=== PATIENT | male | born 1970 | race Caucasian/White ===

== ENCOUNTER → 2022-10-07 11:24 | Outpatient (BNVA) | payer OTHER, MEDICAID, SELFPAY | PROVIDERS: PCP Physician Assistant Medical; Visit Provider Psychiatry & Neurology Neurology | DX: G25.81 Restless legs syndrome (principal); G47.62 Sleep related leg cramps; G47.33 Obstructive sleep apnea (adult) (pediatric); I10 Essential (primary) hypertension; G20 Parkinson's disease ==

== ENCOUNTER 2023-02-08 10:32 | Outpatient (AMB) | payer OTHER, SELFPAY ==
--- NOTE | 2023-02-08 10:34 | MHC.OFFVIS ---
Intake Vital Signs 02/08/23 10:41 Weight 204 lb BP 122/88 Blood Pressure Location Lt brachial Position Sitting Pulse 84 Pulse Source Pulse Oximeter Pulse Oximetry (%) 98 Oxygen Delivery Method Room Air Intake Visit Reasons: 4m f/u Parkinsons-lvm Intake Note: F/U for Parkinsons Oracle Consultant Required: No Allergies No Known Allergies Allergy (Verified 02/08/23 10:35) Medication List - Last Reconciled 02/08/23 by Kusum Mercer MD alpha lipoic acid 250 mg PO DAILY atropine 1% 1 drp PO Q4-6H PRN brimonidine 0.2% 1 drp ophthalmic (eye) Q8H carbidopa-levodopa 25-100 mg 2 tabs PO TID carvedilol 12.5 mg PO BID cholecalciferol (vitamin D3) 25 mcg PO DAILY dapagliflozin propanediol (Farxiga) 10 mg PO DAILY insulin lispro (Humalog KwikPen (U-100) Insulin) subcut mecobalamin (vitamin B12) (B12 Active) 1,000 mcg PO DAILY pen needle, diabetic (BD Maite 2nd Gen Pen Needle) As directed pen needle, diabetic (BD Ultra-Fine Short Pen Needle) As directed pyridoxine (vitamin B6) 100 mg PO DAILY ropinirole ER 6 mg PO QAM rosuvastatin 10 mg PO DAILY trihexyphenidyl 2 mg PO BID zinc gluconate 50 mg PO DAILY HPI HPI Comments History of Present Illness Details 52y/o male with parkinsons comes for further management. He was diagnosed with parkinsonism in 2018 and is on sinemet.He feels he is slower MICHEL was c/w carli decreased activity in Basal ganglia No change since last visit. He has a new mask for his CPAP - feels it is not helping him He stopped insulin and self monitoring his diabetes. He also has systemic sarcoidosis- managed by ( nephrology). He denies a memory issues. He denies REM behavior disorder, vivid dreams, depression or anxiety. SPeech- is softer. He has night time drooling. He has right hand rest tremors, slow movements in all his extremities He has difficulty writing using utensils, showering , dressing etc. Gait is slow. no falls He denies constipation, dizziness, double vision ( lost vision in his left eye due to glaucoma) He reports burning tingling numbness in his feet at night when he is trying to sleep. when he walks its better. [facility] Medical History Carpal tunnel syndrome of right wrist Diabetes Glaucoma HTN (hypertension) Hyperlipidemia Hypersomnia Obstructive sleep apnea Katie's disease Sarcoidosis Family History Mother Diabetes mellitus Father Heart failure Social History Alcohol intake: current Patient Tobacco Use Status: Never used Tobacco Use of substances other than those prescribed or required for medical reasons: No Physical Exam Vital Signs: Last Vital Signs Pulse 84 02/08/23 10:41 BP 122/88 02/08/23 10:41 Pulse Ox 98 02/08/23 10:41 Oxygen Delivery Method Room Air 02/08/23 10:41 Const General: cooperative, healthy appearing and no acute distress Nutritional Appearance: overweight Orientation/consciousness: patient oriented x3 HEENT Head: Yes normal to inspection Neck Other: mild antecollis and restricted range of motion Neuro Other: Moderate decreased blink and facial expression slow tongue movements Voice- normal Right UE rest tremors Fine Finger movements - mild decreased carli R>L Alternating hand movements - normal Hand movements - normal Foot taps- normal No cog wheel rigidity gait - good stride, mild slowness, decreased arm swings r>L General: patient oriented x3 and no focal motor deficits Cranial nerves: Yes CN's II-XII intact bilaterally, Yes Bilaterally intact EOM present, Yes Normal facial strength present and Yes Midline tongue present Motor exam (neuro): 5/5 motor strength present throughout and Normal motor muscle tone present throughout Coordination: [id number] test normal Assessment & Plan Assessment & Plan (1) Parkinson's disease: Code(s): G20 - Parkinson's disease (2) Restless legs syndrome (RLS): Code(s): G25.81 - Restless legs syndrome (3) Leg cramps, sleep related: Code(s): G47.62 - Sleep related leg cramps (4) Obstructive sleep apnea: Code(s): G47.33 - Obstructive sleep apnea (adult) (pediatric) Plan Discussed about glucose control- Refer to endocrinology Rheumotology referral for sarcoidosis Requip XR 6mg qam continue sinemet 25/100 2 tabs tid trihexyphenidyl 2mg bid MICHEL scan results discussed Continue CPAP Orders: Referrals Rheumatology Referral D86.9 - Sarcoidosis, unspecified Endocrinology Referral E11.9 - Type 2 diabetes mellitus without complications Coding Level of Care Code Est Pt Level 5 (21804) Diagnoses Parkinson's disease G20 Restless legs syndrome (RLS) G25.81 Leg cramps, sleep related G47.62 Obstructive sleep apnea G47.33
[2023-02-08 10:41] VITALS: BP 122/88; PULSE 84; O2SAT 98
== END 2023-02-08 10:58 | disposition home or self-care (01) ==
PROVIDERS: Visit Provider Psychiatry & Neurology Neurology
DX: G20 Parkinson's disease (principal); G25.81 Restless legs syndrome; G47.62 Sleep related leg cramps; G47.33 Obstructive sleep apnea (adult) (pediatric)
CPT/HCPCS: 99214

== ENCOUNTER → 2023-02-08 10:32 | Outpatient (BNVA) | payer OTHER, MEDICAID, SELFPAY | PROVIDERS: Visit Provider Psychiatry & Neurology Neurology | DX: G25.81 Restless legs syndrome (principal); G47.62 Sleep related leg cramps; G47.33 Obstructive sleep apnea (adult) (pediatric); I10 Essential (primary) hypertension; G20 Parkinson's disease ==

== ENCOUNTER 2023-05-06 08:34 | Outpatient (AMB) | payer OTHER, SELFPAY ==
[2023-05-06 08:37] VITALS: BP 124/88; PULSE 90; TEMP 36.2; O2SAT 96; BMI 30.7
--- NOTE | 2023-05-06 08:37 | A.OFFVIS_ITS ---
Intake Vital Signs 05/06/23 08:37 Height 5 ft 8 in Weight 201 lb 11.567 oz BMI 30.7 BP 124/88 Blood Pressure Location Rt brachial Position Sitting Pulse 90 Pulse Source Pulse Oximeter Temp 97.2 F Pulse Oximetry (%) 96 Intake Visit Reasons: Sarcoidosis Intake Note: New pt referred by neurology for sarcoidosis consult. Salt Washer Required: No Accompanied by: Self / Same As Patient Allergies No Known Allergies Allergy (Verified 05/06/23 08:39) Medication List - Last Reconciled 05/06/23 by Byron Cleaning MD alpha lipoic acid 250 mg PO DAILY atropine 1% 1 drp PO Q4-6H PRN brimonidine 0.2% 1 drp ophthalmic (eye) Q8H carbidopa-levodopa 25-100 mg 2 tabs PO TID carvedilol 12.5 mg PO BID cholecalciferol (vitamin D3) 25 mcg PO DAILY dapagliflozin propanediol (Farxiga) 10 mg PO DAILY insulin lispro (Humalog KwikPen (U-100) Insulin) subcut mecobalamin (vitamin B12) (B12 Active) 1,000 mcg PO DAILY pen needle, diabetic (BD Maite 2nd Gen Pen Needle) As directed pen needle, diabetic (BD Ultra-Fine Short Pen Needle) As directed pyridoxine (vitamin B6) 100 mg PO DAILY ropinirole ER 6 mg PO QAM 90 days rosuvastatin 10 mg PO DAILY trihexyphenidyl 2 mg PO BID zinc gluconate 50 mg PO DAILY HPI HPI Comments History of Present Illness Details This is a 52-year-old male with Parkinson's was referred by Neurology for evaluation of sarcoidosis. Patient is not a good historian. He states that in 2018 he was admitted to the hospital for hypercalcemia and had a biopsy, he believes it was a liver biopsy and it confirmed sarcoidosis. He states that he was managed by recycling tech , he was on prednisone for 6 months to 1 year. He does not recall any other treatment for sarcoidosis. Has not been on any sarcoidosis treatment in the last few years. He follows up with Dr. callejas every 6 months. Today patient has no major complaints. [facility], [facility] Medical History Hypersomnia Glaucoma Carpal tunnel syndrome of right wrist Obstructive sleep apnea Katie's disease Diabetes Hyperlipidemia HTN (hypertension) Sarcoidosis Surgical History No history of previous surgery Family History Mother Diabetes mellitus Father Heart failure Social History Alcohol intake: current Alcohol intake frequency: holidays/special occasions only Patient Tobacco Use Status: Never used Tobacco Current occupational status: employed Current occupation: Dealership Review of Systems Const Reports headache(s) Eyes Details: redness Reports eye pain ENT Reports dizziness and Reports headache(s) Card Reports dyspnea Resp Reports dyspnea Musc Reports arthralgias Skin/Breast Reports rash Neuro Reports dizziness and Reports headache(s) Psych Reports abnormal sleep pattern Physical Exam Vital Signs: Last Vital Signs Temp 97.2 F 05/06/23 08:37 Pulse 90 05/06/23 08:37 BP 124/88 05/06/23 08:37 Pulse Ox 96 05/06/23 08:37 BMI result Body Mass Index 30.7 Const General: cooperative, healthy appearing and comfortable Nutritional Appearance: overweight Orientation/consciousness: patient oriented x3 Limitations: no limitations HEENT Head: Yes normocephalic and Yes atraumatic Mouth: moist mucous membranes Resp Effort & Inspection: normal respiratory effort and able to speak in complete sentences Cardio Rate: regular rate GI Inspection: No distended Palpation (GI): Soft to palpation and nontender Neuro General: patient oriented x3 Extrem Other: No active synovitis Normal nailfold capillaroscopy Assessment & Plan Assessment & Plan (1) Sarcoidosis: Code(s): D86.9 - Sarcoidosis, unspecified Plan: This is a 52-year-old male with parkinsonism who is referred by Neurology for evaluation of sarcoidosis. Patient is not a good historian. She stated that he was admitted to [facility] in 2018 with hyperglycemia and a biopsy was done which showed sarcoidosis. He was on prednisone for 6 months to 1 year. Managed by recycling tech Dr. callejas. Currently his sarcoidosis is managed by Dr. callejas. The only labs that are available to me in the chart are labs from 06/2022 which showed a normal calcium. Will request records from patient's PCP and recycling tech. Accordingly will assess the need to order any additional workup. Tentative follow-up in 2 months Plan I spent 30 minutes reviewing patient's chart, evaluating patient, counseling patient and documenting in the chart Coding Level of Care Code New Pt Level 3 (13735) Diagnoses Sarcoidosis D86.9
== END 2023-05-06 09:16 | disposition home or self-care (01) ==
PROVIDERS: PCP Physician Assistant Medical; Visit Provider Student in an Organized Health Care Education/Training Program
DX: D86.9 Sarcoidosis, unspecified (principal)
CPT/HCPCS: 99203

== ENCOUNTER → 2023-05-06 08:34 | Outpatient (BNVA) | payer OTHER, MEDICAID, SELFPAY | PROVIDERS: PCP Physician Assistant Medical; Visit Provider Student in an Organized Health Care Education/Training Program ==

== ENCOUNTER 2023-06-15 09:06 | Outpatient (AMB) | payer OTHER, MEDICAID, SELFPAY ==
--- NOTE | 2023-06-15 09:08 | MHC.OFFVIS ---
Intake Vital Signs 06/15/23 09:09 Height 5 ft 8 in Weight 208 lb 2 oz BMI 31.6 BP 126/70 Blood Pressure Location Rt brachial Position Sitting Respiration 16 Pulse 85 Pulse Source Pulse Oximeter Pulse Oximetry (%) 99 Oxygen Delivery Method Room Air Intake Visit Reasons: f/u Parkinson's - Confirmed Intake Note: Pt presents to the office for a 4 month follow up for Parkinson's. Agriculture Scientist Required: No Allergies No Known Allergies Allergy (Verified 06/15/23 09:08) Medication List - Last Reconciled 06/15/23 by Kusum Mercer MD alpha lipoic acid 250 mg PO DAILY atropine 1% 1 drp PO Q4-6H PRN brimonidine 0.2% 1 drp ophthalmic (eye) Q8H carbidopa-levodopa 25-100 mg 2 tabs PO TID carvedilol 12.5 mg PO BID cholecalciferol (vitamin D3) 25 mcg PO DAILY dapagliflozin propanediol (Farxiga) 10 mg PO DAILY insulin lispro (Humalog KwikPen (U-100) Insulin) subcut mecobalamin (vitamin B12) (B12 Active) 1,000 mcg PO DAILY pen needle, diabetic (BD Maite 2nd Gen Pen Needle) As directed pen needle, diabetic (BD Ultra-Fine Short Pen Needle) As directed pyridoxine (vitamin B6) 100 mg PO DAILY ropinirole ER 6 mg PO QAM 90 days rosuvastatin 10 mg PO DAILY trihexyphenidyl 2 mg PO BID zinc gluconate 50 mg PO DAILY HPI HPI Comments History of Present Illness Details 52y/o male with parkinsons comes for further management. He was diagnosed with parkinsonism in 2018 and is on sinemet.He feels he is slower and also the medication wears off early. when the med wear off he has trouble walking and has stiffness and pain. MICHEL was c/w carli decreased activity in Basal ganglia He has a new mask for his CPAP - feels it is not helping him He is back on insulin and is seeing with PCP. He crump snot know if his diabetes is controlled He was also seen by Dr. Cleaning for sarcoidosis He denies a memory issues. He denies REM behavior disorder, vivid dreams, depression or anxiety. SPeech- is softer. He has night time drooling. He has right hand rest tremors, slow movements in all his extremities He has difficulty writing using utensils, showering , dressing etc. Gait is slow. no falls He denies constipation, dizziness, double vision ( lost vision in his left eye due to glaucoma) He reports burning tingling numbness in his feet at night when he is trying to sleep. when he walks its better. [facility] Medical History Hypersomnia Glaucoma Carpal tunnel syndrome of right wrist Obstructive sleep apnea Aktie's disease Diabetes Hyperlipidemia HTN (hypertension) Sarcoidosis Surgical History No history of previous surgery Family History Mother Diabetes mellitus Father Heart failure Social History Alcohol intake: current Alcohol intake frequency: holidays/special occasions only Patient Tobacco Use Status: Never used Tobacco Current occupational status: employed Current occupation: Dealership Physical Exam Vital Signs: Last Vital Signs Pulse 85 06/15/23 09:09 Resp 16 06/15/23 09:09 BP 126/70 06/15/23 09:09 Pulse Ox 99 06/15/23 09:09 Oxygen Delivery Method Room Air 06/15/23 09:09 BMI result Body Mass Index 31.6 Const General: cooperative, healthy appearing and no acute distress Nutritional Appearance: overweight Orientation/consciousness: patient oriented x3 HEENT Head: Yes normal to inspection Neck Other: mild antecollis and restricted range of motion Neuro Other: Moderate decreased blink and facial expression slow tongue movements Voice- normal Right UE rest tremors Fine Finger movements - mild decreased carli R>L Alternating hand movements - normal Hand movements - normal Foot taps- normal No cog wheel rigidity gait - good stride, mild slowness, decreased arm swings r>L General: patient oriented x3 and no focal motor deficits Cranial nerves: Yes CN's II-XII intact bilaterally, Yes Bilaterally intact EOM present, Yes Normal facial strength present and Yes Midline tongue present Motor exam (neuro): 5/5 motor strength present throughout and Normal motor muscle tone present throughout Coordination: [id number] test normal Assessment & Plan Assessment & Plan (1) Parkinson's disease: Code(s): G20 - Parkinson's disease (2) Restless legs syndrome (RLS): Code(s): G25.81 - Restless legs syndrome (3) Leg cramps, sleep related: Code(s): G47.62 - Sleep related leg cramps (4) Obstructive sleep apnea: Code(s): G47.33 - Obstructive sleep apnea (adult) (pediatric) Plan Discussed about glucose control- Refer to endocrinology Requip XR 6mg qam change sinemet 25/100 1.5tabs qid trihexyphenidyl 2mg bid MICHEL scan results discussed Continue CPAP Medications: New gabapentin 600 mg PO BEDTIME 30 tabs 4RF Changed From carbidopa-levodopa 25-100 mg 2 tabs PO TID 180 tabs 6RF To carbidopa-levodopa 25-100 mg 1.5 tabs PO QID 180 tabs 6RF Coding Level of Care Code Est Pt Level 4 (46516) Diagnoses Parkinson's disease G20 Restless legs syndrome (RLS) G25.81 Leg cramps, sleep related G47.62 Obstructive sleep apnea G47.33
[2023-06-15 09:09] VITALS: BP 126/70; PULSE 85; RESP 16; O2SAT 99; BMI 31.6
== END 2023-06-15 09:34 | disposition home or self-care (01) ==
PROVIDERS: PCP Physician Assistant Medical; Visit Provider Psychiatry & Neurology Neurology
DX: G20.A1 Parkinson's disease without dyskinesia, without mention of fluctuations (principal); G25.81 Restless legs syndrome; G47.62 Sleep related leg cramps; G47.33 Obstructive sleep apnea (adult) (pediatric)
CPT/HCPCS: 99214

== ENCOUNTER → 2023-06-15 09:06 | Outpatient (BNVA) | payer OTHER, MEDICAID, SELFPAY | PROVIDERS: PCP Physician Assistant Medical; Visit Provider Psychiatry & Neurology Neurology | DX: G25.81 Restless legs syndrome (principal); G47.62 Sleep related leg cramps; G47.33 Obstructive sleep apnea (adult) (pediatric); I10 Essential (primary) hypertension; D86.9 Sarcoidosis, unspecified; E11.9 Type 2 diabetes mellitus without complications ==

== ENCOUNTER 2023-07-07 09:15 | Outpatient (AMB) | payer OTHER, MEDICAID, SELFPAY ==
--- NOTE | 2023-07-07 09:20 | MHC.OFFVIS ---
Intake Vital Signs 07/07/23 09:21 Height 5 ft 8 in BP 126/84 Blood Pressure Location Rt brachial Position Sitting Pulse 92 Pulse Source Pulse Oximeter Temp 96.7 F L Temp Source Skin Pulse Oximetry (%) 99 Oxygen Delivery Method Room Air Intake Visit Reasons: Sarcoidosis Intake Note: Pt last seen 05/06/23 presents today for follow up. I faxed signed med release to PCP, courtesy car driver and [facility] for discharge summary on 06/29 but never received records. Pharmacist Critical Care Required: No Accompanied by: Self / Same As Patient Allergies No Known Allergies Allergy (Verified 07/07/23 09:23) Medication List - Last Reconciled 07/07/23 by Byron Cleaning MD alpha lipoic acid 250 mg PO DAILY atropine 1% 1 drp PO Q4-6H PRN brimonidine 0.2% 1 drp ophthalmic (eye) Q8H carbidopa-levodopa 25-100 mg 1.5 tabs PO QID carvedilol 12.5 mg PO BID cholecalciferol (vitamin D3) 25 mcg PO DAILY dapagliflozin propanediol (Farxiga) 10 mg PO DAILY gabapentin 600 mg PO BEDTIME insulin lispro (Humalog KwikPen (U-100) Insulin) subcut mecobalamin (vitamin B12) (B12 Active) 1,000 mcg PO DAILY pen needle, diabetic (BD Maite 2nd Gen Pen Needle) As directed pen needle, diabetic (BD Ultra-Fine Short Pen Needle) As directed pyridoxine (vitamin B6) 100 mg PO DAILY ropinirole ER 6 mg PO QAM 90 days rosuvastatin 10 mg PO DAILY trihexyphenidyl 2 mg PO BID zinc gluconate 50 mg PO DAILY HPI HPI Comments History of Present Illness Details 52-year-old male with sarcoidosis returns for follow-up. Patient signed a records please request form, we requested records from his courtesy car driver. We were unable to receive records. Patient states that he feels about the same overall. He gets tingling and numbness of his right foot, especially at night. Initial history: This is a 52-year-old male with Parkinson's was referred by Neurology for evaluation of sarcoidosis. Patient is not a good historian. He states that in 2018 he was admitted to the hospital for hypercalcemia and had a biopsy, he believes it was a liver biopsy and it confirmed sarcoidosis. He states that he was managed by courtesy car driver , he was on prednisone for 6 months to 1 year. He does not recall any other treatment for sarcoidosis. Has not been on any sarcoidosis treatment in the last few years. He follows up with Dr. callejas every 6 months. Today patient has no major complaints. [facility] Medical History Parkinson's disease without dyskinesia or fluctuating manifestations Hypersomnia Glaucoma Carpal tunnel syndrome of right wrist Obstructive sleep apnea Katie's disease Diabetes Hyperlipidemia HTN (hypertension) Sarcoidosis Surgical History No history of previous surgery Family History Mother Diabetes mellitus Father Heart failure Social History Alcohol intake: current Alcohol intake frequency: holidays/special occasions only Patient Tobacco Use Status: Never used Tobacco Current occupational status: employed Current occupation: Dealership Review of Systems Musc Reports tingling Neuro Reports tingling and Reports paresthesias Physical Exam Vital Signs: Last Vital Signs Temp 96.7 F L 07/07/23 09:21 Pulse 92 07/07/23 09:21 BP 126/84 07/07/23 09:21 Pulse Ox 99 07/07/23 09:21 Oxygen Delivery Method Room Air 07/07/23 09:21 Const General: cooperative, healthy appearing and comfortable Nutritional Appearance: overweight Orientation/consciousness: patient oriented x3 Limitations: no limitations HEENT Head: Yes normocephalic and Yes atraumatic Resp Effort & Inspection: normal respiratory effort and able to speak in complete sentences Neuro General: patient oriented x3 Extrem Other: No active synovitis Normal nailfold capillaroscopy Assessment & Plan Assessment & Plan (1) Sarcoidosis: Code(s): D86.9 - Sarcoidosis, unspecified Plan: This is a 52-year-old male with parkinsonism who is referred by Neurology for evaluation of sarcoidosis. Patient is not a good historian. She stated that he was admitted to [facility] in 2018 with hypercalcemia and a liver biopsy was done which showed sarcoidosis. He was on prednisone for 6 months to 1 year. Managed by courtesy car driver Dr. callejas. Currently his sarcoidosis is managed by Dr. callejas. The only labs that are available to me in the chart are labs from 06/2022 which showed a normal calcium. We requested records from patient's courtesy car driver as well as DC summary from his hospitalization. We were unable to retrieve those records. I will order sarcoidosis workup to evaluate the need for treatment Follow-up in 3 weeks Plan I spent 15 minutes reviewing patient's chart, evaluating patient, ordering diagnostic workup, counseling patient and documenting in the chart Orders: Orders Complete Blood Count Auto Diff Today D86.9 - Sarcoidosis, unspecified Comprehensive Met. Panel Today D86.9 - Sarcoidosis, unspecified Immunofixation Pnl, Serum Today D86.9 - Sarcoidosis, unspecified Protein Electrophoresis, Serum Today D86.9 - Sarcoidosis, unspecified Angiotensin Converting Enzyme Today D86.9 - Sarcoidosis, unspecified C Reactive Protein Today D86.9 - Sarcoidosis, unspecified Erythrocyte Sedimentation Rate Today D86.9 - Sarcoidosis, unspecified Lysozyme, Serum Today D86.9 - Sarcoidosis, unspecified Vitamin D 1,25 dihydroxy Today D86.9 - Sarcoidosis, unspecified Vitamin D 25-OH (D2 and D3) Today D86.9 - Sarcoidosis, unspecified Coding Level of Care Code Est Pt Level 3 (99891) Diagnoses Sarcoidosis D86.9
[2023-07-07 09:21] VITALS: BP 126/84; PULSE 92; TEMP 35.9; O2SAT 99
== END 2023-07-07 09:46 | disposition home or self-care (01) ==
PROVIDERS: PCP Physician Assistant Medical; Visit Provider Student in an Organized Health Care Education/Training Program
DX: D86.9 Sarcoidosis, unspecified (principal)
CPT/HCPCS: 99213

== ENCOUNTER → 2023-07-07 09:15 | Outpatient (BNVA) | payer OTHER, MEDICAID, SELFPAY | PROVIDERS: PCP Physician Assistant Medical; Visit Provider Student in an Organized Health Care Education/Training Program ==

== ENCOUNTER 2023-07-07 09:51 | Outpatient (REF) | payer OTHER, MEDICAID, SELFPAY ==
[2023-07-11 15:37] LABS: Lysozyme, Serum 19.4 mcg/mL (5.0-11.0)
[2023-07-12 11:09] LABS: Prot Elec - Albumin 4.3 g/dL (3.8-4.8); Prot Elec - Alpha1 0.3 g/dL (0.2-0.3); Prot Elec - Alpha2 0.7 g/dL (0.5-0.9); Prot Elec - Beta 1 0.5 g/dL (0.4-0.6); Prot Elec - Beta 2 0.5 g/dL (0.2-0.5); Prot Elec - Gamma 0.9 g/dL (0.8-1.7); Prot Elec - Total Protein 7.1 g/dL (6.1-8.1)
[2023-07-13 12:44] LABS: VITAMIN D (1,25 OH) D3 49 pg/mL; Vit D (1,25-Dihydroxy) Total 49 pg/mL (18-72); Vitamin D (1,25 OH) D2 <8 pg/mL; Vitamin D 25-OH, D2 <4 ng/mL; Vitamin D 25-OH, D3 21 ng/mL; Vitamin D 25-OH, Total 21 ng/mL (30-100)
[2023-07-13 14:44] LABS: IgA 271 mg/dL (47-310); IgG 973 mg/dL (600-1640); IgM 88 mg/dL (50-300)
[2023-07-14 14:39] LABS: Angiotensin Converting Enzyme 47.7 U/L (9-67)
== END 2023-07-07 09:52 | disposition home or self-care (01) ==
LOC: HO.10HDL 09:51
PROVIDERS: Visit Provider Student in an Organized Health Care Education/Training Program
DX: D86.9 Sarcoidosis, unspecified (principal)
CPT/HCPCS: 36415; 80053; 82164; 82306; 82652; 82784; 84165; 85025; 85549; 85652; 86140; 86334

== ENCOUNTER 2023-07-28 15:34 | Outpatient (AMB) | payer OTHER, MEDICAID, SELFPAY ==
[2023-07-28 15:38] VITALS: BP 142/80; PULSE 104; O2SAT 97; BMI 31.7
--- NOTE | 2023-07-28 15:38 | A.OFFVIS_ITS ---
Intake Vital Signs 07/28/23 15:38 Height 5 ft 8 in Weight 208 lb 8.917 oz BMI 31.7 BP 142/80 H Blood Pressure Location Rt brachial Position Sitting Pulse 104 H Pulse Source Pulse Oximeter Pulse Oximetry (%) 97 Oxygen Delivery Method Room Air Intake Visit Reasons: Sarcoidosis Intake Note: Patient last seen 07/07/23 presents today for follow up and test results. Court Monitor Required: No Accompanied by: Self / Same As Patient Allergies No Known Allergies Allergy (Verified 07/28/23 15:40) Medication List - Last Reconciled 07/28/23 by Byron Cleaning MD alpha lipoic acid 250 mg PO DAILY atropine 1% 1 drp PO Q4-6H PRN brimonidine 0.2% 1 drp ophthalmic (eye) Q8H carbidopa-levodopa 25-100 mg 1.5 tabs PO QID carvedilol 12.5 mg PO BID cholecalciferol (vitamin D3) 25 mcg PO DAILY dapagliflozin propanediol (Farxiga) 10 mg PO DAILY gabapentin 600 mg PO BEDTIME insulin lispro (Humalog KwikPen (U-100) Insulin) subcut mecobalamin (vitamin B12) (B12 Active) 1,000 mcg PO DAILY pen needle, diabetic (BD Maite 2nd Gen Pen Needle) As directed pen needle, diabetic (BD Ultra-Fine Short Pen Needle) As directed pyridoxine (vitamin B6) 100 mg PO DAILY ropinirole ER 6 mg PO QAM 90 days rosuvastatin 10 mg PO DAILY trihexyphenidyl 2 mg PO BID zinc gluconate 50 mg PO DAILY HPI HPI Comments History of Present Illness Details 52-year-old male with sarcoidosis return s for follow-up. Patient states that he is doing about the same overall. He has pain in the right side. He mentioned that he had an open lung biopsy in 2018 and in 2020 his right lung collapse and he had multiple drains in his right lung. Stated that 1 of the drains broke when they were moving him from bed to bed. Since then he has been having pain in his right side. He also states that he has been having froth in bubbles in his urine for the last 2 months. I advised patient to follow-up with his coordinator of online programs and seek evaluation by a razor grinder. Initial history: This is a 52-year-old male with Parkinson's was referred by Neurology for evaluation of sarcoidosis. Patient is not a good historian. He states that in 2018 he was admitted to the hospital for hypercalcemia and had a biopsy, he believes it was a liver biopsy and it confirmed sarcoidosis. He states that he was managed by coordinator of online programs , he was on prednisone for 6 months to 1 year. He does not recall any other treatment for sarcoidosis. Has not been on any sarcoidosis treatment in the last few years. He follows up with Dr. fenton every 6 months. Today patient has no major complaints. [facility] Medical History (Updated 07/28/23 @ 16:17 by Byron Cleaning MD) Uveitic glaucoma Parkinson's disease without dyskinesia or fluctuating manifestations Hypersomnia Carpal tunnel syndrome of right wrist Obstructive sleep apnea Katie's disease Diabetes Hyperlipidemia HTN (hypertension) Sarcoidosis Surgical History (Updated 07/28/23 @ 16:14 by Byron Cleaning MD) No history of previous surgery Family History Mother Diabetes mellitus Father Heart failure Social History Alcohol intake: current Alcohol intake frequency: holidays/special occasions only Patient Tobacco Use Status: Never used Tobacco Current occupational status: employed Current occupation: Dealership Review of Systems Resp Details: Right-sided pain Details: Bubbles in urine Physical Exam Vital Signs: Last Vital Signs Pulse 104 H 07/28/23 15:38 BP 142/80 H 07/28/23 15:38 Pulse Ox 97 07/28/23 15:38 Oxygen Delivery Method Room Air 07/28/23 15:38 BMI result Body Mass Index 31.7 Const General: cooperative, healthy appearing and comfortable Nutritional Appearance: overweight Orientation/consciousness: patient oriented x3 Limitations: no limitations HEENT Head: Yes normocephalic and Yes atraumatic Chest Other: Could not elicit any chest wall tenderness Resp Effort & Inspection: normal respiratory effort and able to speak in complete sentences Auscultation: clear to auscultation bilaterally GI Inspection: No distended Palpation (GI): Soft to palpation and nontender Skin General skin exam: no rashes or lesions noted Neuro General: patient oriented x3 Extrem Other: No active synovitis Normal nailfold capillaroscopy Assessment & Plan Assessment & Plan (1) Sarcoidosis: Code(s): D86.9 - Sarcoidosis, unspecified Plan: This is a 52-year-old male with parkinsonism who is referred by Neurology for evaluation of sarcoidosis. Patient is not a good historian. He stated that he was admitted to [facility] in 2018 with hypercalcemia and a liver biopsy was done which showed sarcoidosis. He was on prednisone for 6 months to 1 year. Managed by coordinator of online programs Dr. fenton. He also mentioned that he had a lung biopsy in 2018 which showed sarcoidosis. Patient was treated with prednisone by his coordinator of online programs Dr. Fenton more 6 months to 1 year. He has not been on steroids for some time. His serum calcium is normal. Jake level is normal. I do not see any features of active sarcoidosis on exam today. 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 He was on Humira at some point. Used to follow-up with mortgage banker Dr. Cliff Epperson. Will request records from Dr. Epperson's office Labs before next visit in 6 months (2) Right-sided chest wall pain: Code(s): R07.89 - Other chest pain Plan: Patient mentioned that in 2020 he was hospitalized and had right-sided multiple chest tubes. One of the tubes broke when they were moving it. States that he continues to have the same pain. Consider pulmonology consultation (3) Frothy urine: Code(s): R82.998 - Other abnormal findings in urine Plan: Follow-up with coordinator of online programs or PCP Plan I spent 25 minutes reviewing patient's chart, evaluating patient, ordering diagnostic workup, counseling patient and documenting in the chart Orders: Orders Complete Blood Count Auto Diff 6 Months D86.9 - Sarcoidosis, unspecified Erythrocyte Sedimentation Rate 6 Months D86.9 - Sarcoidosis, unspecified T Spot TB 6 Months Z11.7 - Encounter for testing for latent tuberculosis infection Protein Electrophoresis, Serum 6 Months D86.9 - Sarcoidosis, unspecified Angiotensin Converting Enzyme 6 Months D86.9 - Sarcoidosis, unspecified Cyclic Citrullinated Peptide 6 Months M06.9 - Rheumatoid arthritis, unspecified HLA B27 6 Months M45.9 - Ankylosing spondylitis of unspecified sites in spine Comprehensive Met. Panel 6 Months D86.9 - Sarcoidosis, unspecified C Reactive Protein 6 Months D86.9 - Sarcoidosis, unspecified Hepatitis A,B,C Profile 6 Months Z11.59 - Encounter for screening for other viral diseases Immunofixation Pnl, Serum 6 Months D86.9 - Sarcoidosis, unspecified Lysozyme, Serum 6 Months D86.9 - Sarcoidosis, unspecified Rheumatoid Factor 6 Months M06.9 - Rheumatoid arthritis, unspecified MAGALY Reflex Titer and Pattern 6 Months D86.9 - Sarcoidosis, unspecified Coding Level of Care Code Est Pt Level 4 (82817) Diagnoses Sarcoidosis D86.9 Right-sided chest wall pain R07.89 Frothy urine R82.998
== END 2023-07-28 16:06 | disposition home or self-care (01) ==
LOC: HO.RHE 15:34
PROVIDERS: PCP Physician Assistant Medical; Visit Provider Student in an Organized Health Care Education/Training Program
DX: D86.9 Sarcoidosis, unspecified (principal); R07.89 Other chest pain; R82.998 Other abnormal findings in urine
CPT/HCPCS: 99214

== ENCOUNTER → 2023-07-28 15:34 | Outpatient (BNVA) | payer OTHER, MEDICAID, SELFPAY | PROVIDERS: PCP Physician Assistant Medical; Visit Provider Student in an Organized Health Care Education/Training Program ==

== ENCOUNTER 2023-10-14 08:29 | Outpatient (AMB) | payer OTHER, MEDICAID, SELFPAY ==
--- NOTE | 2023-10-14 08:47 | A.OFFVIS_ITS ---
Intake Vital Signs 10/14/23 08:48 Height 5 ft 8 in Weight 208 lb BMI 31.6 BP 110/76 Blood Pressure Location Rt brachial Position Sitting Respiration 16 Pulse 76 Pulse Source Palpation Intake Visit Reasons: 2 mo f/u - Parkinsons-CONF Intake Note: Pt presents for a 2 month follow up for Parkinson's. Wildlife Officer Required: No Allergies No Known Allergies Allergy (Verified 10/14/23 08:47) HPI HPI Comments History of Present Illness Details 52y/o male with parkinsons comes for low up.He reports that the medication wears off quickly , has trouble walking. He was diagnosed with parkinsonism in 2018 and is on sinemet.He feels he is slower and also the medication wears off early. when the med wear off he has trouble walking and has stiffness and pain. MICHEL was c/w carli decreased activity in Basal ganglia He has a new mask for his CPAP - feels it is not helping him His Hg A1c is 8.5 1 month ago as per patient. He was also seen by Dr. Cleaning for sarcoidosis He denies a memory issues. He denies REM behavior disorder, vivid dreams, depression or anxiety. SPeech- is softer. He has night time drooling. He has right hand rest tremors, slow movements in all his extremities He has difficulty writing using utensils, showering , dressing etc. Gait is slow. no falls He denies constipation, dizziness, double vision ( lost vision in his left eye due to glaucoma) He reports burning tingling numbness in his feet at night when he is trying to sleep. when he walks its better. [facility] Medical History Uveitic glaucoma Parkinson's disease without dyskinesia or fluctuating manifestations Hypersomnia Carpal tunnel syndrome of right wrist Obstructive sleep apnea Katie's disease Diabetes Hyperlipidemia HTN (hypertension) Sarcoidosis Surgical History No history of previous surgery Family History Mother Diabetes mellitus Father Heart failure Social History Alcohol intake: current Alcohol intake frequency: holidays/special occasions only Patient Tobacco Use Status: Never used Tobacco Current occupational status: employed Current occupation: Dealership Physical Exam Vital Signs: Last Vital Signs Pulse 76 10/14/23 08:48 Resp 16 10/14/23 08:48 BP 110/76 10/14/23 08:48 BMI result Body Mass Index 31.6 Const General: cooperative, healthy appearing and no acute distress Nutritional Appearance: overweight Orientation/consciousness: patient oriented x3 HEENT Head: Yes normal to inspection Neck Other: mild antecollis and restricted range of motion Neuro Other: Moderate decreased blink and facial expression slow tongue movements Voice- normal Right UE rest tremors Fine Finger movements - mild decreased carli R>L Alternating hand movements - normal Hand movements - normal Foot taps- normal No cog wheel rigidity gait - good stride, mild slowness, decreased arm swings r>L General: patient oriented x3 and no focal motor deficits Cranial nerves: Yes CN's II-XII intact bilaterally, Yes Bilaterally intact EOM present, Yes Normal facial strength present and Yes Midline tongue present Motor exam (neuro): 5/5 motor strength present throughout and Normal motor muscle tone present throughout Coordination: [id number] test normal Assessment & Plan Assessment & Plan (1) Parkinson's disease: Code(s): G20 - Parkinson's disease (2) Restless legs syndrome (RLS): Code(s): G25.81 - Restless legs syndrome (3) Leg cramps, sleep related: Code(s): G47.62 - Sleep related leg cramps (4) Obstructive sleep apnea: Code(s): G47.33 - Obstructive sleep apnea (adult) (pediatric) Plan Requip XR 6mg qam sinemet 25/100 1.5tabs qid , patient is taking 2 tabs tid - suggested to change to 1.5 tabs qid to improve early wearing off. trihexyphenidyl 2mg bid MICHEL scan results discussed Continue CPAP F/u rheumatology and nephrology Coding Level of Care Code Est Pt Level 4 (71181) Diagnoses Parkinson's disease G20 Restless legs syndrome (RLS) G25.81 Leg cramps, sleep related G47.62 Obstructive sleep apnea G47.33
[2023-10-14 08:48] VITALS: BP 110/76; PULSE 76; RESP 16; BMI 31.6
== END 2023-10-14 09:16 | disposition home or self-care (01) ==
PROVIDERS: PCP Physician Assistant Medical; Visit Provider Psychiatry & Neurology Neurology
DX: G20.A1 Parkinson's disease without dyskinesia, without mention of fluctuations (principal); G25.81 Restless legs syndrome; G47.62 Sleep related leg cramps; G47.33 Obstructive sleep apnea (adult) (pediatric)
CPT/HCPCS: 99214

== ENCOUNTER → 2023-10-14 08:29 | Outpatient (BNVA) | payer OTHER, MEDICAID, SELFPAY | PROVIDERS: PCP Physician Assistant Medical; Visit Provider Psychiatry & Neurology Neurology ==

== ENCOUNTER 2024-01-18 15:40 | Outpatient (REF) | payer OTHER, MEDICAID, SELFPAY ==
[2024-01-18 16:24] LABS: MANUAL DIFF FLAG NO
[2024-01-18 17:32] LABS: Basophils Percent Auto 1.8 % (0-2); Eosinophils Percent Auto 6.3 % (0-4); Hematocrit 43.7 % (42.0-52.0); Hemoglobin 14.9 g/dl (14.0-18.0); Imm Gran Abs Auto 0.05 X10*3/uL (0.00-0.03); Imm Gran Pct Auto 0.5 % (0.0-0.4); Lymphocytes Absolute Auto 1.3 X10*3/uL (1.2-4.9); Mean Corpuscular HGB Conc 34.1 g/dl (31.0-36.0); Mean Corpuscular Hemoglobin 28.5 pg (27.0-33.0); Mean Corpuscular Volume 83.6 fL (80.0-98.0); Mean Platelet Volume 9.6 fL (9.4-12.4); Monocytes Percent Auto 6.2 % (2-11); Neutrophils Absolute Auto 6.8 x10*3/uL (2.0-8.3); Neutrophils Percent Auto 71.2 % (45-73); Platelet Count 204 X10*3/uL (160-400); Red Blood Count 5.23 X10*6/uL (4.60-5.80); Red Cell Distribution Width 13.1 % (11.0-16.0); White Blood Count 9.5 X10*3/uL (4.8-10.8)
[2024-01-18 17:33] LABS: Basophils Absolute Auto 0.2 X10*3/uL (0.0-0.2); Eosinophils Absolute Auto 0.6 X10*3/uL (0.0-0.4); Monocytes Absolute Auto 0.6 X10*3/uL (0.1-1.2)
[2024-01-18 18:16] LABS: Alanine Aminotransferase < 5 U/L (0-40); Albumin Level 4.3 g/dL (3.5-5.0); Alkaline Phosphatase 100 U/L (39-117); Anion Gap 16 (12-20); Aspartate Amino Transferase 15 U/L (5-37); Bilirubin Total 0.7 mg/dL (0.0-1.0); Blood Urea Nitrogen 36 mg/dL (9-16); C Reactive Protein 0.27 mg/dL (< or = 0.50); Carbon Dioxide 19 mmol/L (22-29); Chloride 105 mmol/L (96-108); Estimated Glomerular Filt Rate 33; Glucose Random 222 mg/dL (60-115); Sodium 135 mmol/L (135-145); Total Protein 7.3 g/dL (6.5-8.0)
[2024-01-18 18:19] LABS: Rheumatoid Factor < 13.0 IU/mL (<15.0)
[2024-01-18 18:33] LABS: Erythrocyte Sedimentation Rate 10 MM/HR (0-15)
[2024-01-19 04:33] LABS: HBS Num1 0.13 mIU/mL (0-7.99); HBc Num1 0.26 S/CO (0.00-0.79); HBsAGNum1 0.29 S/CO (0.00-0.99); Hepatitis A Antibody IgM 0.13 Index (0-0.79); Hepatitis B Core Antibody Nonreactive (Nonreactive); Hepatitis B Surface Antigen Negative (Negative); ~HepC Num1 0.06 S/CO (0.00-0.79); ~Hepatitis A Antibody IgM Nonreactive (Nonreactive); ~Hepatitis B Surface Antibody NONREACTIVE (Nonreactive); ~Hepatitis C Antibody Nonreactive (Nonreactive)
[2024-01-19 22:28] LABS: Prot Elec - Albumin 4.2 g/dL (3.8-4.8); Prot Elec - Alpha1 0.3 g/dL (0.2-0.3); Prot Elec - Alpha2 0.6 g/dL (0.5-0.9); Prot Elec - Beta 1 0.4 g/dL (0.4-0.6); Prot Elec - Beta 2 0.5 g/dL (0.2-0.5); Prot Elec - Gamma 0.8 g/dL (0.8-1.7); Prot Elec - Total Protein 6.8 g/dL (6.1-8.1)
[2024-01-20 14:54] LABS: IgA 280 mg/dL (47-310); IgG 977 mg/dL (600-1640); IgM 83 mg/dL (50-300)
[2024-01-23 02:59] LABS: Angiotensin Converting Enzyme 36.7 U/L (9-67)
[2024-01-23 21:44] LABS: Lysozyme, Serum 17.1 mcg/mL (5.0-11.0)
[2024-01-24 09:13] LABS: Cyclic Citrullinated Peptide <16 UNITS
[2024-01-24 09:34] LABS: HLA B27 Positive (Negative)
[2024-01-26 11:02] LABS: Anti Nuclear Antibody Screen NEGATIVE (NEGATIVE)
== END 2024-01-18 15:41 | disposition home or self-care (01) ==
LOC: HO.LAB 15:40
PROVIDERS: PCP Physician Assistant Medical; Visit Provider Student in an Organized Health Care Education/Training Program
DX: D86.9 Sarcoidosis, unspecified (principal); M45.9 Ankylosing spondylitis of unspecified sites in spine; Z11.59 Encounter for screening for other viral diseases; M06.9 Rheumatoid arthritis, unspecified
CPT/HCPCS: 36415; 80053; 82164; 82784; 84165; 85025; 85549; 85652; 86038; 86140; 86200; 86334; 86431; 86480; 86481; 86704; 86706; 86709; 86803; 86812; 87340

== ENCOUNTER 2024-01-25 12:31 | Outpatient (AMB) | payer OTHER, MEDICAID, SELFPAY ==
--- NOTE | 2024-01-25 12:32 | MHC.OFFVIS ---
Vital Signs 01/25/24 12:33 Height 5 ft 8 in Weight 212 lb 4.882 oz BMI 32.3 BP 122/80 Blood Pressure Location Lt brachial Position Sitting Pulse 82 Pulse Source Pulse Oximeter Pulse Oximetry (%) 98 Oxygen Delivery Method Room Air Intake Visit Reasons: Sarcoidosis Intake Note: Patient last seen on 07/28/23 present today for follow up and test results. Allergies No Known Allergies Allergy (Verified 01/25/24 12:36) Medication List - Last Reconciled 01/25/24 by Byron Cleaning MD alpha lipoic acid 250 mg PO DAILY amlodipine 2.5 mg PO DAILY atropine 1% 1 drp PO Q4-6H PRN brimonidine 0.2% 1 drp ophthalmic (eye) Q8H carbidopa-levodopa 25-100 mg 1.5 tabs PO QID carvedilol 12.5 mg PO BID cholecalciferol (vitamin D3) 25 mcg PO DAILY dapagliflozin propanediol (Farxiga) 10 mg PO DAILY gabapentin 600 mg PO BEDTIME insulin lispro (Humalog KwikPen (U-100) Insulin) subcut mecobalamin (vitamin B12) (B12 Active) 1,000 mcg PO DAILY pen needle, diabetic (BD Maite 2nd Gen Pen Needle) As directed pen needle, diabetic (BD Ultra-Fine Short Pen Needle) As directed pyridoxine (vitamin B6) 100 mg PO DAILY ropinirole ER 6 mg PO QAM 90 days rosuvastatin 10 mg PO DAILY spironolactone 12.5 mg PO DAILY trihexyphenidyl 2 mg PO BID zinc gluconate 50 mg PO DAILY HPI Comments Details: 52-year-old male with history of sarcoidosis and reactive arthritis returns for follow-up. Patient states that he is doing about the same overall. States that he feels generalized slowness, generalized stiffness, generalized achiness. he denies any swollen joints. Initial history: This is a 52-year-old male with Parkinson's was referred by Neurology for evaluation of sarcoidosis. Patient is not a good historian. He states that in 2018 he was admitted to the hospital for hypercalcemia and had a biopsy, he believes it was a liver biopsy and it confirmed sarcoidosis. He states that he was managed by volleyball assistant coach , he was on prednisone for 6 months to 1 year. He does not recall any other treatment for sarcoidosis. Has not been on any sarcoidosis treatment in the last few years. He follows up with Dr. fenton every 6 months. Today patient has no major complaints. [facility] Medical History Uveitic glaucoma Parkinson's disease without dyskinesia or fluctuating manifestations Hypersomnia Carpal tunnel syndrome of right wrist Obstructive sleep apnea Katie's disease Diabetes Hyperlipidemia HTN (hypertension) Sarcoidosis Surgical History No history of previous surgery Family History Mother Diabetes mellitus Father Heart failure Social History Alcohol intake: current Alcohol intake frequency: holidays/special occasions only Patient Tobacco Use Status: Never used Tobacco Current occupational status: employed Current occupation: Dealership Review of Systems Const Reports body aches, Reports fatigue and Reports weakness Musc Reports myalgias, Denies joint swelling and Reports stiffness Neuro Reports weakness Endo Reports fatigue Physical Exam Vital Signs: Last Vital Signs Pulse 82 01/25/24 12:33 BP 122/80 01/25/24 12:33 Pulse Ox 98 01/25/24 12:33 Oxygen Delivery Method Room Air 01/25/24 12:33 BMI result Body Mass Index 32.3 Const General: cooperative, healthy appearing and comfortable Nutritional Appearance: overweight Orientation/consciousness: patient oriented x3 Limitations: no limitations HEENT Head: Yes normocephalic and Yes atraumatic Resp Effort & Inspection: normal respiratory effort and able to speak in complete sentences Auscultation: clear to auscultation bilaterally GI Inspection: No distended Palpation (GI): Soft to palpation and nontender Skin General skin exam: no rashes or lesions noted Neuro General: patient oriented x3 Extrem Other: No active synovitis Normal nailfold capillaroscopy Assessment & Plan Assessment & Plan (1) Sarcoidosis: Comment: +HLA b27 Code(s): D86.9 - Sarcoidosis, unspecified Category: Medical Plan: This is a 53-year-old male with parkinsonism who is referred by Neurology for evaluation of sarcoidosis. Patient is not a good historian. He stated that he was admitted to [facility] in 2018 with hypercalcemia and a liver biopsy was done which showed sarcoidosis. He was on prednisone for 6 months to 1 year. Managed by volleyball assistant coach Dr. fenton. He also mentioned that he had a lung biopsy in 2018 which showed sarcoidosis. Patient was treated with prednisone by his volleyball assistant coach Dr. Fenton more 6 months to 1 year. He has not been on steroids for some time. 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 He was on Humira at some point. Used to follow-up with assistant operator Dr. Cliff Epperson. He also has history of uveitic glaucoma On exam today I do not see any signs suggestive of an autoimmune rheumatic disease. Is no active synovitis, inflammatory markers are normal, there is no hypercalcemia, RONI level is normal Patient to follow-up with his dry plasterer helper and volleyball assistant coach Follow-up in 1 year Plan I spent 25 minutes reviewing patient's chart, evaluating patient, ordering diagnostic workup, counseling patient and documenting in the chart Orders: Orders Complete Blood Count Auto Diff 1 Year D86.9 - Sarcoidosis, unspecified Comprehensive Met. Panel 1 Year D86.9 - Sarcoidosis, unspecified C Reactive Protein 1 Year D86.9 - Sarcoidosis, unspecified Erythrocyte Sedimentation Rate 1 Year D86.9 - Sarcoidosis, unspecified Angiotensin Converting Enzyme 1 Year D86.9 - Sarcoidosis, unspecified Coding Level of Care Code Est Pt Level 4 (35177) Diagnoses Sarcoidosis D86.9
[2024-01-25 12:33] VITALS: BP 122/80; PULSE 82; O2SAT 98; BMI 32.3
== END 2024-01-25 13:04 | disposition home or self-care (01) ==
PROVIDERS: PCP Physician Assistant Medical; Visit Provider Student in an Organized Health Care Education/Training Program
DX: D86.9 Sarcoidosis, unspecified (principal)
CPT/HCPCS: 99214

== ENCOUNTER → 2024-01-25 12:31 | Outpatient (BNVA) | payer OTHER, MEDICAID, SELFPAY | PROVIDERS: PCP Physician Assistant Medical; Visit Provider Student in an Organized Health Care Education/Training Program ==

== ENCOUNTER 2024-03-09 09:15 | Outpatient (AMB) | payer OTHER, MEDICAID, SELFPAY ==
--- NOTE | 2024-03-09 09:29 | A.OFFVIS_ITS ---
Vital Signs 03/09/24 09:30 Height 5 ft 8 in Weight 212 lb BMI 32.2 BP 138/72 Blood Pressure Location Rt brachial Position Sitting Respiration 16 Pulse 84 Pulse Source Palpation Intake Visit Reasons: 6 month F/U Intake Note: Pt presents to the office for a 4 month follow up for leg cramps and CRISTINA. Pt admits he has not been using his CPAP Bottom Hoop Driver Required: No Allergies No Known Allergies Allergy (Verified 03/09/24 09:29) Medication List - Last Reconciled 03/09/24 by Kusum Mercer MD alpha lipoic acid 250 mg PO DAILY amlodipine 2.5 mg PO DAILY atropine 1% 1 drp PO Q4-6H PRN brimonidine 0.2% 1 drp ophthalmic (eye) Q8H carbidopa-levodopa 25-100 mg 2 tabs PO QID carvedilol 12.5 mg PO BID cholecalciferol (vitamin D3) 25 mcg PO DAILY dapagliflozin propanediol (Farxiga) 10 mg PO DAILY gabapentin 600 mg PO BEDTIME insulin lispro (Humalog KwikPen (U-100) Insulin) subcut mecobalamin (vitamin B12) (B12 Active) 1,000 mcg PO DAILY pen needle, diabetic (BD Maite 2nd Gen Pen Needle) As directed pen needle, diabetic (BD Ultra-Fine Short Pen Needle) As directed pyridoxine (vitamin B6) 100 mg PO DAILY ropinirole ER 6 mg PO QAM 90 days rosuvastatin 10 mg PO DAILY spironolactone 12.5 mg PO DAILY trihexyphenidyl 2 mg PO BID zinc gluconate 50 mg PO DAILY HPI Comments Details: 53y/o male with parkinsons comes for follow up. His diabetes is poorly controlled He feels fatigued and has trouble walking He was diagnosed with parkinsonism in 2018 and is on sinemet.He feels he is slower and also the medication wears off early. when the med wear off he has trouble walking and has stiffness and pain. MICHEL was c/w carli decreased activity in Basal ganglia He has a new mask for his CPAP - feels it is not helping him- he reports leg symptoms - numbness and jerking movements at night His Hg A1c is 9 month ago as per patient. He denies a memory issues. He denies REM behavior disorder, vivid dreams, depression or anxiety. SPeech- is softer. He has night time drooling. He has right hand rest tremors, slow movements in all his extremities He has difficulty writing using utensils, showering , dressing etc. Gait is slow. no falls He denies constipation, dizziness, double vision ( lost vision in his left eye due to glaucoma) He reports burning tingling numbness in his feet at night when he is trying to sleep. when he walks its better. [facility] Medical History (Updated 03/09/24 @ 09:51 by Kusum Mercer MD) Obstructive sleep apnea hypopnea, moderate Parkinson's disease without dyskinesia, without mention of fluctuations Uveitic glaucoma Parkinson's disease without dyskinesia or fluctuating manifestations Hypersomnia Carpal tunnel syndrome of right wrist Obstructive sleep apnea Katie's disease Diabetes Hyperlipidemia HTN (hypertension) Sarcoidosis Surgical History No history of previous surgery Family History Mother Diabetes mellitus Father Heart failure Social History Alcohol intake: current Alcohol intake frequency: holidays/special occasions only Patient Tobacco Use Status: Never used Tobacco Current occupational status: employed Current occupation: Dealership Physical Exam Vital Signs: Last Vital Signs Pulse 84 03/09/24 09:30 Resp 16 03/09/24 09:30 BP 138/72 03/09/24 09:30 BMI result Body Mass Index 32.2 Const General: cooperative, healthy appearing and no acute distress Nutritional Appearance: overweight Orientation/consciousness: patient oriented x3 HEENT Head: Yes normal to inspection Neck Other: mild antecollis and restricted range of motion Neuro Other: Moderate decreased blink and facial expression slow tongue movements Voice- normal Right UE rest tremors Fine Finger movements - mild decreased carli R>L Alternating hand movements - normal Hand movements - normal Foot taps- normal No cog wheel rigidity gait - good stride, mild slowness, decreased arm swings r>L General: patient oriented x3 and no focal motor deficits Cranial nerves: Yes CN's II-XII intact bilaterally, Yes Bilaterally intact EOM present, Yes Normal facial strength present and Yes Midline tongue present Motor exam (neuro): 5/5 motor strength present throughout and Normal motor muscle tone present throughout Coordination: [id number] test normal Assessment & Plan Assessment & Plan (1) Parkinson's disease without dyskinesia, without mention of fluctuations: Code(s): G20.A1 - Parkinson's disease without dyskinesia, without mention of fluctuations Category: Medical (2) Restless legs syndrome (RLS): Code(s): G25.81 - Restless legs syndrome Category: Medical (3) Leg cramps, sleep related: Code(s): G47.62 - Sleep related leg cramps Category: Medical (4) Obstructive sleep apnea: Code(s): G47.33 - Obstructive sleep apnea (adult) (pediatric) Category: Medical Plan Requip XR 6mg qam Increase sinemet 25/100 2tabs qid trihexyphenidyl 2mg bid MICHEL scan results discussed Continue CPAP - will refer to [facility] for mandibular device F/u rheumatology and nephrology Orders: Referrals Dentistry Referral G47.33 - Obstructive sleep apnea (adult) (pediatric) Medications: Changed From carbidopa-levodopa 25-100 mg 1.5 tabs PO QID 180 tabs 6RF To carbidopa-levodopa 25-100 mg 2 tabs PO QID 240 tabs 6RF Coding Level of Care Code Est Pt Level 4 (57916) Complex EM visit Add On G2211 Diagnoses Parkinson's disease without dyskinesia, without mention of fluctuations G20.A1 Restless legs syndrome (RLS) G25.81 Leg cramps, sleep related G47.62 Obstructive sleep apnea G47.33
[2024-03-09 09:30] VITALS: BP 138/72; PULSE 84; RESP 16; BMI 32.2
== END 2024-03-09 10:02 | disposition home or self-care (01) ==
PROVIDERS: PCP Physician Assistant Medical; Visit Provider Psychiatry & Neurology Neurology
DX: G20.A1 Parkinson's disease without dyskinesia, without mention of fluctuations (principal); G25.81 Restless legs syndrome; G47.62 Sleep related leg cramps; G47.33 Obstructive sleep apnea (adult) (pediatric)
CPT/HCPCS: 99214; G2211

== ENCOUNTER → 2024-03-09 09:15 | Outpatient (BNVA) | payer OTHER, MEDICAID, SELFPAY | PROVIDERS: PCP Physician Assistant Medical; Visit Provider Psychiatry & Neurology Neurology ==

== ENCOUNTER 2024-09-24 10:53 | Outpatient (AMB) | payer OTHER, SELFPAY ==
[2024-09-24 10:59] VITALS: BP 126/78; PULSE 77; O2SAT 99; BMI 32.4
--- NOTE | 2024-09-24 10:59 | A.OFFVIS_ITS ---
Vital Signs 09/24/24 10:59 Height 5 ft 8 in Weight 213 lb BMI 32.4 BP 126/78 Blood Pressure Location Rt brachial Position Sitting Pulse 77 Pulse Source Pulse Oximeter Pulse Oximetry (%) 99 Oxygen Delivery Method Room Air Intake Visit Reasons: 6mo F/U Intake Note: patient following up carbidopa levodopa increase Allergies No Known Allergies Allergy (Verified 09/24/24 11:02) Medication List - Last Reconciled 09/24/24 by Kusum Mercer MD alpha lipoic acid 250 mg PO DAILY amlodipine 2.5 mg PO DAILY atropine 1% 1 drp PO Q4-6H PRN brimonidine 0.2% 1 drp ophthalmic (eye) Q8H carbidopa-levodopa 25-100 mg 2 tabs PO QID carvedilol 12.5 mg PO BID cholecalciferol (vitamin D3) 25 mcg PO DAILY dapagliflozin propanediol (Farxiga) 10 mg PO DAILY insulin lispro (Humalog KwikPen (U-100) Insulin) subcut mecobalamin (vitamin B12) (B12 Active) 1,000 mcg PO DAILY pen needle, diabetic (BD Maite 2nd Gen Pen Needle) As directed pen needle, diabetic (BD Ultra-Fine Short Pen Needle) As directed pyridoxine (vitamin B6) 100 mg PO DAILY ropinirole ER 6 mg PO QAM rosuvastatin 10 mg PO DAILY spironolactone 12.5 mg PO DAILY trihexyphenidyl 2 mg PO BID zinc gluconate 50 mg PO DAILY HPI Comments Details: 53y/o male with parkinsons comes for follow up. He was diagnosed with parkinsonism in 2018 and is on sinemet.He feels he is slower and also the medication wears off early. when the med wear off he has trouble walking and has stiffness and pain. MICHEL was c/w carli decreased activity in Basal ganglia He denies a memory issues. He denies REM behavior disorder, vivid dreams, depression or anxiety. SPeech- is softer. He has night time drooling. He has right hand rest tremors, slow movements in all his extremities He has difficulty writing using utensils, showering , dressing etc. Gait is slow. no falls He denies constipation, dizziness, double vision ( lost vision in his left eye due to glaucoma) He reports burning tingling numbness in his feet at night when he is trying to sleep. when he walks its better. [facility] Medical History Obstructive sleep apnea hypopnea, moderate Parkinson's disease without dyskinesia, without mention of fluctuations Uveitic glaucoma Parkinson's disease without dyskinesia or fluctuating manifestations Hypersomnia Carpal tunnel syndrome of right wrist Obstructive sleep apnea Katie's disease Diabetes Hyperlipidemia HTN (hypertension) Sarcoidosis Surgical History No history of previous surgery Family History Mother Diabetes mellitus Father Heart failure Social History Alcohol intake: current Alcohol intake frequency: holidays/special occasions only Patient Tobacco Use Status: Never used Tobacco Current occupational status: employed Current occupation: Dealership Physical Exam Vital Signs: Last Vital Signs Pulse 77 09/24/24 10:59 BP 126/78 09/24/24 10:59 Pulse Ox 99 09/24/24 10:59 Oxygen Delivery Method Room Air 09/24/24 10:59 BMI result Body Mass Index 32.4 Const General: cooperative, healthy appearing and no acute distress Nutritional Appearance: overweight Orientation/consciousness: patient oriented x3 HEENT Head: Yes normal to inspection Neck Other: mild antecollis and restricted range of motion Neuro Other: Moderate decreased blink and facial expression slow tongue movements Voice- normal Right UE rest tremors Fine Finger movements - mild decreased carli R>L Alternating hand movements - normal Hand movements - normal Foot taps- normal No cog wheel rigidity gait - good stride, mild slowness, decreased arm swings r>L General: patient oriented x3 and no focal motor deficits Cranial nerves: Yes CN's II-XII intact bilaterally, Yes Bilaterally intact EOM present, Yes Normal facial strength present and Yes Midline tongue present Motor exam (neuro): 5/5 motor strength present throughout and Normal motor muscle tone present throughout Coordination: [id number] test normal Assessment & Plan Assessment & Plan (1) Parkinson's disease without dyskinesia, without mention of fluctuations: Code(s): G20.A1 - Parkinson's disease without dyskinesia, without mention of fluctuations Category: Medical Qualifiers: Fluctuating manifestations: with fluctuating manifestations Qualified Code(s): G20.A2 - Parkinson's disease without dyskinesia, with fluctuations (2) Restless legs syndrome (RLS): Code(s): G25.81 - Restless legs syndrome Category: Medical (3) Leg cramps, sleep related: Code(s): G47.62 - Sleep related leg cramps Category: Medical (4) Obstructive sleep apnea: Code(s): G47.33 - Obstructive sleep apnea (adult) (pediatric) Category: Medical Plan Requip XR 6mg qam sinemet 25/100 2tabs qid - does not want to increase medications yet trihexyphenidyl 2mg bid MICHEL scan results discussed Continue CPAP - will refer to [facility] for mandibular device F/u [facility] rheumatology and nephrology Medications: Discontinued gabapentin Discontinued Reason: Patient no longer taking 600 mg PO BEDTIME 30 tabs 4RF Coding Level of Care Code Est Pt Level 4 (13338) Complex EM visit Add On G2211 Diagnoses Parkinson's disease without dyskinesia, with fluctuating manifestations G20.A2 Fluctuating manifestations: with fluctuating manifestations Restless legs syndrome (RLS) G25.81 Leg cramps, sleep related G47.62 Obstructive sleep apnea G47.33
== END 2024-09-24 11:34 | disposition home or self-care (01) ==
PROVIDERS: PCP Physician Assistant Medical; Visit Provider Psychiatry & Neurology Neurology
DX: G20.A2 Parkinson's disease without dyskinesia, with fluctuations (principal); G25.81 Restless legs syndrome; G47.62 Sleep related leg cramps; G47.33 Obstructive sleep apnea (adult) (pediatric)
CPT/HCPCS: 99214; G2211

== ENCOUNTER → 2024-09-24 10:53 | Outpatient (BNVA) | payer MEDICAID, SELFPAY | PROVIDERS: PCP Physician Assistant Medical; Visit Provider Psychiatry & Neurology Neurology | DX: G20.A2 Parkinson's disease without dyskinesia, with fluctuations (principal); G25.81 Restless legs syndrome; G47.62 Sleep related leg cramps; G47.33 Obstructive sleep apnea (adult) (pediatric) | CPT/HCPCS: 99212 ==

== ENCOUNTER 2025-02-07 11:20 | Outpatient (AMB) | payer MEDICAID, SELFPAY ==
--- NOTE | 2025-02-07 11:29 | MHC.OFFVIS ---
Vital Signs 02/07/25 11:30 Height 5 ft 8 in Weight 209 lb 2 oz BMI 31.8 BP 122/72 Blood Pressure Location Rt brachial Position Sitting Pulse 80 Pulse Source Pulse Oximeter Pulse Oximetry (%) 98 Oxygen Delivery Method Room Air Intake Visit Reasons: Discharge FU, foot numbness/twitch Intake Note: Patient presents [facility] F/u foot numbness/tingling. ED notes in chart. Patient states severe stiffness/swelling/pain. WHen goes to bed goes to feet. Accompanied by: Sister Allergies No Known Allergies Allergy (Verified 02/07/25 11:33) HPI Comments Details: 54y/o male with Parkinsons disorder and CRISTINA presents for follow up visit. Jasmina his sister helps with history today. PMH: In 2018 he was dx with Parkinsons and is on Sinemet. MICHEL was c/w carli decreased activity in Basal ganglia. Medication: Sinemet cd/ld 2- 7a, 2-noon,2-5pm, 2-10pm. patient understand to take this medication without protein products and he may take a cookie or a cracker with the meds. He says the medicine is wearing off, and has more than 2-3 hours of off time daily. He also adjuncts with Trihexylphenidyl 2mg po BID gives him more energy but wears off pretty quickly. He feels fatigued and is slower as the med wears off he has trouble walking. He says his feet get stiff at night and he has excruciating, burning pain in the toes flicker ,He takes alpha lipoic acid 250mg and ropinirole 2mg po daily. Sleep is fragmented, has difficulty staying asleep, turning over in bed, and his legs feel heavy. He naps through out the day. He has RLS symptoms with paresthesias, burning, tingling he gets up to stretch them at night, and sleeps in his chair. He has bilateral tremors start on r. lower extremity and moves to l. lower extremity. His hands feel rigid, r>L with tremors and paresthesias. He has difficulty writing, using utensils, feeding himself, cutting his food, drinking soup, showering, and dressing. Fine motor coordination is worse and needs help with all his ADLS. He has right hand rest tremors, and this keeps him up at night, he shakes out his hands which helps to stop the tremors, but then they continue. His diet is good he denies dysphagia and can swallow solids and liquids. He denies constipaition. Voice is soft, has difficulty with projecting his voice and he drools at night time. His memory is good. He denies REM behavior disorder, vivid dreams, depression or anxiety. Denies a/v hallucinations. His gait is off balance, he thinks he is going to fall and ambulates slowly. His feet get stuck on the floor when he tries to move and he loses his balance. He has to sit after his shower and has to hold on as he feels dizzy from the heat in the shower. He denies morning headaches and dizziness, has double vision (lost vision in his left eye due to glaucoma r. 20/20.) [facility] Medical History Obstructive sleep apnea hypopnea, moderate Parkinson's disease without dyskinesia, without mention of fluctuations Uveitic glaucoma Parkinson's disease without dyskinesia or fluctuating manifestations Hypersomnia Carpal tunnel syndrome of right wrist Obstructive sleep apnea Katie's disease Diabetes Hyperlipidemia HTN (hypertension) Sarcoidosis Surgical History No history of previous surgery Family History Mother Diabetes mellitus Father Heart failure Social History Alcohol intake: current Alcohol intake frequency: holidays/special occasions only Patient Tobacco Use Status: Never used Tobacco Current occupational status: employed Current occupation: Dealership Review of Systems Const Reports difficulty sleeping and Reports snoring Eyes Reports blurry vision and Reports change in vision Card Reports no additional complaints Resp Reports snoring Musc Reports abnormal gait, Reports arthralgias and Reports tingling Neuro Reports abnormal gait, Reports restless legs, Reports tingling, Reports paresthesias and Reports tremor(s) Physical Exam Vital Signs: Last Vital Signs Pulse 80 02/07/25 11:30 BP 122/72 02/07/25 11:30 Pulse Ox 98 02/07/25 11:30 Oxygen Delivery Method Room Air 02/07/25 11:30 BMI result Body Mass Index 31.8 Const General: cooperative, comfortable and no acute distress Nutritional Appearance: overweight Orientation/consciousness: patient oriented x3 HEENT Head: Yes normal to inspection Face and sinus: Yes face symmetric Teeth and gingiva: other (mallampti score is 4) Neck Other: mild antecollis and restricted range of motion Resp Effort & Inspection: normal respiratory effort and able to speak in complete sentences Neuro Other: Moderate decreased blink and blunt facial expression Slow tongue movements / facial and oral tremor Voice- hypophonia Right UE rest tremor Fine finger movements mild decreased carli R>L Alternating hand movements - normal Hand movements - normal Foot taps slow, heel taps stable No cog wheel rigidity or stiffness noted Gait, good stride, mild slowness, decreased arm swings r>L General: patient oriented x3 and moves all extremities Cranial nerves: Yes Normal facial strength present, Yes Midline tongue present, Yes Ability to bilaterally rotate head present, Yes Ability to bilaterally elevate shoulders present and Yes Other cranial nerve findings present (glaucoma left eye) Cognition (Neuro): normal cognition Gait exam (Neuro): Other gait observations present (gait is good) Motor exam (neuro): 5/5 motor strength present throughout and Normal motor muscle tone present throughout Psych Appearance: well kempt Speech and movement: Slowed movement present (Neuro) Thought process: Normal thought process present Thought content: Normal thought content present Results Reviewed Results Reviewed: DATscan 05/2022 Decrease activity in the bilateral basal ganglia. absecne of activity is noted w/ putamen bilaterally assymetrically. Activity seen only within r. caudate head and l. caudate head proximal body. Labs reviewed with patient. Assessment & Plan Assessment & Plan (1) Parkinson's disease without dyskinesia, without mention of fluctuations: Comment: continue sinemet CD/LD 25/100 mg po QID, iram expresses interest in onpago apomorphine pump Code(s): G20.A1 - Parkinson's disease without dyskinesia, without mention of fluctuations Category: Medical Qualifiers: Fluctuating manifestations: with fluctuating manifestations Qualified Code(s): G20.A2 - Parkinson's disease without dyskinesia, with fluctuations (2) Restless legs syndrome (RLS): Code(s): G25.81 - Restless legs syndrome Category: Medical (3) Leg cramps, sleep related: Comment: continue ropinirole ER 6mg po in the AM and alpha lipoic acid 250mg po daily Code(s): G47.62 - Sleep related leg cramps Category: Medical (4) Obstructive sleep apnea: Comment: referred to sleep dentistry as patient can not tolerate cpap due to REM sleep disorder behavior Code(s): G47.33 - Obstructive sleep apnea (adult) (pediatric) Category: Medical Plan Parkinsons Disorder Sinemet 25/100 2 tabs qid, he is interested in onpago Apomorphine pump and may be a good candidate. RLS c ontinue XR 6mg qam and continue Trihexylphenidyl 2mg po BID. MICHEL scan results reviewed, decreased activity in putamen. CRISTINA cpap not tolerated, (REM selep behavior)will referred to sleep dentistry for mandibular device. F/u with rheumatology, opthamology, nephrology and endocrine. T2DM is well managed. F/u with clinic for disability letter. Labs from ED January 2025 reviewed with patient, glucose was high, anemia, and Bun elevated, B12 is normal. Orders: Referrals Dentistry Referral G47.33 - Obstructive sleep apnea (adult) (pediatric) Medications: Refilled carbidopa-levodopa 25-100 mg 2 tabs PO QID 240 tabs 6RF Patient Instructions: Sleep Hygiene provided: set a scheduled bedtime and wake time to help regulate the circadian rhythm and balance the release of pituitary hormones. Sleep in a dark room, temperatures below 68 degrees, and no devices n bed. Limit caffeinated products 6 hours prior to bed, and limit fluids 2-4 hours prior to bed. Gentle night yoga, diffusing essential oils, and playing soft music can be relaxing. HST - has CRISTINA Referral for oral appliance, could not tolerate the cpap. Letter for disability with Jaci, requested. [facility] labs from January 23, 2025 reviewed with patient. MRI ?- due to claustrophobia may have one from [facility], to evaluate for facial paralysis per sister. Coding Level of Care Code Est Pt Level 4 (19424) Complex EM visit Add On G2211 Diagnoses Parkinson's disease without dyskinesia, with fluctuating manifestations G20.A2 Fluctuating manifestations: with fluctuating manifestations Restless legs syndrome (RLS) G25.81 Leg cramps, sleep related G47.62 Obstructive sleep apnea G47.33 Time Spent (min) 40 Comment
[2025-02-07 11:30] VITALS: BP 122/72; PULSE 80; O2SAT 98; BMI 31.8
--- OUTSIDE RECORDS SUMMARY | 2025-02-07 12:02 | XMS_ITS | Encounter Summary ---
Author Organization [facility] Address [address] [place] [address] Phone Care Team Providers Care Racking Technician Name Role Phone Alva Ruiz PA-C Primary Care Provider [phone] Encounter Details Date Type Department Care Team (Late st Contact Info) Description 08/16/2024 Documentation Only [facility] [address] [place] [address] [place] [id number] Social History Tobacco Use Types Packs/Day Years Used Date Smoking Tobacco: Never Alcohol Use Standard Drinks/Week Comments No 0 (1 standard drink = 0.6 oz pur e alcohol) Sex and Gender Information Value Date Recorded Sex Assigned at Not on file Legal Sex Male 4:30 PM EST Gender Identity Not on file Sexual Orientation Not on file documented as of this encounter Plan of Treatment Upcoming Encounters Date Type Department Care Team (Late st Contact Info) Description 02/27/2025 1:00 PM EDT Clinical Support [facility] [address] [place] [address] 05/02/2025 2:30 PM EDT Office Visit [facility] [address] [place] [address] Carmen Oliver MD [address] [place] [address] [place] [address] documented as of this encounter Visit Diagnoses Not on filedocumented in this encounter Care Teams Racking Technician Relationship Specialty Start Date End Date Alva Ruiz PA-C [facility] [place] [address] PCP - General Physician Performance Test Architect 02/16/22 documented as of this encounter
--- OUTSIDE RECORDS SUMMARY | 2025-02-07 12:02 | XMS_ITS | Clinical Summary ---
Author Organization [employer] [facility] Address [address] [place] [address] Care Team Providers Care Certified Medicine Aide Name Role Phone Unavailable Primary Care Provider Unavailabl e Encounters Date Type Department Care Team Description 01/22/2025 Population Health Risk Score [facility] (C3) Department [address] [facility] [address] [place] [address] Provider, Population Health Generic from Last 3 Months Social History Tobacco Use Types Packs/Day Years Used Date Smoking Tobacco: Never Assessed Sex and Gender Information Value Date Recorded Sex Assigned at Not on file Legal Sex Male 9:25 PM EDT Gender Identity Not on file Sexual Orientation Not on file Plan of Treatment Health Maintenance Due Date Last Done Comments CT Colonography 1968 Colonoscopy 1968 Colorectal Cancer Screening 1968 Depression Screening 1968 FIT DNA/Cologuard 1968 FIT 1968 FOBT 1968 HIV Screening 1968 Lipid Panel 1968 SDOH Screening 1968 Sigmoidoscopy 1968 Disability Screening 1968 Alcohol/Substance Use Screening 1980 Tobacco Screening 1980 Hepatitis C Screening 1986 DTaP/Tdap/Td Vaccines (1 - Tdap) 12/03/1987 Hepatitis B Vaccines (1 of 3 - 19+ 3-dose series) 12/03/1987 Pneumococcal Vaccine: 50+ Ye ars (1 of 1 - PCV) 2018 Zoster Vaccines (1 of 2) 2018 COVID-19 Vaccine ( - 2023-2 5 season) 2024 Influenza Vaccine (#1) 2025 RSV Patients and Pa tients Aged 60 years or older (1 - 1-dose 75+ series) 12/03/2043 HIB Vaccines Aged Out No longer eligi ble based on patient's age to complete this topic HPV Vaccines Aged Out No longer eligi ble based on patient's age to complete this topic Hepatitis A Vaccines Aged Out No long er eligible based on patient's age to complete this topic IPV Vaccines Aged Out No longer eligi ble based on patient's age to complete this topic Meningococcal B Vaccine Aged Out No l onger eligible based on patient's age to complete this topic Meningococcal Vaccine Aged Out No tulio parveen eligible based on patient's age to complete this topic RSV under 20 months Aged Out No longe r eligible based on patient's age to complete this topic Rotavirus Vaccines Aged Out No longer eligible based on patient's age to complete this topic
--- OUTSIDE RECORDS SUMMARY | 2025-02-07 12:02 | XMS_ITS | Clinical Summary ---
Author Organization [facility] Address [address] [place] [address] Care Team Providers Care Perinatal Director Name Role Phone Alva Ruiz PA-C Primary Care Provider Source Comments PLEASE NOTE, if this patient is a minor, it may be UNLAWFUL to discuss sensitive information that is contained in these records (such as FAMILY PLANNING, MENTAL HEALTH or SUBSTANCE ABUSE) with the minor patient's parent or other person without the patient's specific authorization.[facility] Allergies Active Allergy Reactions Criticality Noted Date Comments Sitagliptin 02/06/2020 c/o: myalgia has improved after stopping medication Medications blood pressure test kit-mediumIndica tions:Essential hypertension Use to check blood pressure daily and as needed. Dx: I10 LOS: 99 Meds: lisinopril, carvedilol Pt needs automatic blood pressure monitor because it is extremely difficult to obtain a manual blood pressure on self. Additionally, pt is not medically trained to use a stethoscope or how to read a sphygmometer. 1 Kit 0 Active trihexyphenidyL (ARTANE) 2 mg tabletIndication s:Parkinson disease ([facility]) TAKE 1 TABLET BY MOUTH 2 (TWO) TIMES DAILY NEEDS AN APPOINTMENT FOR MORE REFILLS 180 Tablet 2 Active gabapentin (NEURONTIN) 600 mg tablet 03/03/2022 GABAPENTIN 600 MG TABLET [facility]/pharmacy #[id number] - [place], [place] [phone] 30.00 Each 2 30 TAKE 1 TABLET BY MOUTH EVERYDAY AT BEDTIME Surescripts (Fill History, Ambulatory) Authorized by: LUCI HELLER 2 Active apraclonidine (IOPIDINE) 0.5 % ophthalmic solution INSTILL ONE DROP INTO LEFT EYE TWICE A DAY 2 Active carbidopa-levodo pa (SINEMET) 25-100 mg per tablet TAKE 1 TABLET BY MOUTH THREE TIMES A DAY 270 Tablet 1 3 Active incontinence alarms (MISC. DEVICES MISC) See Instructions, # 1 each, Refills 11, Tot. Refills 11, Maintenance, CPAP 12 to 20 cm of H2O with compliance data A4604 Heated Tubing/Climate line or A7037 Tubing A7038 or A7039 Filters A7036 Chin strap A7046 Humidifier Chamber A7035 Headgear... 07/20/2022 [facility] 07/22/2022 3 Active tadalafiL (CIALIS) 20 mg tablet 08/05/2022 TADALAFIL 20MG TAB [facility] [address] [place] [address] 10.00 Each 11 10 TAKE 1 TABLET BY MOUTH 2 HOURS PRIOR TO INTERCOURSE Surescripts (Fill History, Ambulatory) Authorized by: JENNI ANTONY 3 Active rosuvastatin (CRESTOR) 20 mg tablet Take 20 mg by mouth once daily Authorized by: RAAD CHAN ED 3 Active sildenafil (REVATIO) 20 mg tablet TAKE 1 TABLET BY MOUTH 1/2 HOUR PRIOR TO SEXUAL INTERCOURSE NO MORE THAN ONCE DAILY [address] Active aspirin [address] tablet Take 81 mg by mouth 1 Active acetaminophen (TYLENOL) 325 mg tablet Take 650 mg by mouth 1 Active rOPINIRole 6 mg Tb24 Take 1 Tablet by mouth every morning 3 Active dorzolamide-nickie loL (COSOPT) 22.3-6.8 mg/mL ophthalmic solutionIndicati ons:Uveitic glaucoma of left eye, unspecified glaucoma stage INSTILL ONE DROP INTO LEFT TWICE A DAY 10 mL 1 4 Active spironolactone (ALDACTONE) 25 mg tablet Take 12.5 mg by mouth once daily TAKE 1/2 TABLET BY MOUTH DAILY Authorized by: DAGO AGUAYO 4 Active blood-glucose meter monitoring kitIndications:T ype 2 diabetes mellitus with hyperglycemia, with long-term current use of insulin ([facility]) Use to test blood glucose twice daily. (Freestyle Lite) 1 Each 4 Active brimonidine (ALPHAGAN) 0.2 % ophthalmic solutionIndicati ons:Loss of vision,Uveitic glaucoma of left eye, unspecified glaucoma stage PLACE 1 DROP INTO LEFT EYE TWICE A DAY 15 mL 1 4 Active pen needle, diabetic (BD ULTRA-FINE CARLO PEN NEEDLE) 32 gauge x 5/32 ndleIndications: Type 2 diabetes mellitus with hyperglycemia, with long-term current use of insulin ([facility]) Use to inject insulin 4X/D UD DXE11.65 200 Each 11 4 Active triamcinolone (KENALOG) 0.1 % cream APPLY TO LEGS TWICE DAILY FOR 2 WEEKS, THEN DO NOT USE FOR FOLLOWING WEEK. REPEAT COURSE NEEDED Authorized by: LAURIE WILSON 4 Active valsartan (DIOVAN) 40 mg tablet Take 40 mg by mouth nightly at bedtime 4 Active carvediloL (COREG) 25 mg tabletIndication s:NSTEMI (non-ST elevated myocardial infarction) ([facility]) Take 1 Tablet by mouth 2 (two) times daily 180 Tablet 1 5 Active insulin lispro (HUMALOG KWIKPEN INSULIN) 100 unit/mL injection penIndications:T ype 2 diabetes mellitus with hyperglycemia, with long-term current use of insulin ([facility]) INJECT 14-16 UNITS INTO THE SKIN 3 (THREE) TIMES DAILY BEFORE MEALS (MAX 48 UNITS DAILY) 45 mL 1 5 Active loratadine (CLARITIN) 10 mg tabletIndication s:Congestion of nasal sinus Take 1 Tablet by mouth once daily as needed for allergies 90 Tablet 1 5 Active cholecalciferol (VITAMIN D-3) 50 mcg (2,000 unit) capsuleIndicatio ns:Low vitamin D level Take 1 Capsule by mouth once daily 90 Capsule 1 5 Active insulin glargine (LANTUS SOLOSTAR U-100 INSULIN) 100 unit/mL (3 mL) penIndications:T ype 2 diabetes mellitus with hyperglycemia, with long-term current use of insulin ([facility]) INJECT 50 UNITS INTO THE SKIN EVERY EVENING 45 mL 2 5 Active diclofenac sodium (VOLTAREN) 1 % gelIndications:T ype 2 diabetes mellitus with hyperglycemia, with long-term current use of insulin ([facility]) Apply 2 g topically 2 (two) times daily 450 g 3 5 Active FARXIGA 10 mg tab TAKE 10 MG BY MOUTH 1 (ONE) TIME EACH DAY IN THE MORNING Authorized by: MARILU BANKS 5 Active blood sugar diagnostic stripsIndication s:Type 2 diabetes mellitus with stage 3b chronic kidney disease, with long-term current use of insulin ([facility]) Use to check BG TID DX E11.49 Freestyle Lite 100 Each 11 5 Active lancets (FREESTYLE LANCETS) 28 gaugeIndications :Type 2 diabetes mellitus with stage 3b chronic kidney disease, with long-term current use of insulin ([facility]) Use to check BG TID DX E11.49 Freestyle Lancets 100 Each 11 5 Active alcohol swabsIndications :Type 2 diabetes mellitus with stage 3b chronic kidney disease, with long-term current use of insulin ([facility]) Use to test blood glucose 3 times daily. 100 Each 11 5 Active Active Problems Problem Noted Date Diagnosed Date Cardiomyopathy ([facility]) 04/10/2024 Severe obesity ([facility]) 04/10/2024 Chronic kidney disease, stage 3a ([facility]) 08/15/2023 Dyslipidemia 08/11/2023 Nephrolithiasis 08/11/2023 Proteinuria 08/11/2023 Restless leg syndrome 08/11/2023 Right flank pain 08/11/2023 CHF (congestive heart failure) ([facility]) 0 08/11/2023 Overview (12/07/2023): with reduced ejection fraction Congestive heart failure ([facility]) 023 Central sleep apnea with Dallin-Pereira respirati on 06/16/2023 NSTEMI (non-ST elevated myoc ardial infarction) ([facility]) 06/16/2023 Overview (06/16/2023): 2020 Chronic anterior uveitis 06/29/2022 Pain in right leg 06/29/2022 Cataract, bilateral 10/19/2021 Fissure, anal 10/19/2021 Obesity, Class I, BMI 30-34.9 10/19/2021 Pneumothorax 10/19/2021 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 Reggie Dodson M.D. 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 01/11/2018 Overview (10/19/2021): Added automatically from request for surgery [id number] Glaucoma associated with ocular inflammation Overview (10/19/2021): Due to Katie's syndroms -off Humira for > 1 year due to insurance and has not seen rheum in long time either -was last seen by us 08/2014 and IOP was 48 at that time, but pt never followed up -Was 20/30 at that time left eye -pt has been out of diamox x 3 months -pt has been out of combigan x 1 week -taking dorzolamide bid os -hasn't taken prednisolone in 2 weeks, was taking it qam prn before that Last Assessment & Plan: IOP today left eye still very elevated at 54 Reports compliance with Cosopt BID left eye Brimonidine BID left eye Diamox 250mg PO BID Atropine BID left eye Creatine worsened on recent BMP 1.8 from 1.0 with decrease in GFR. Plan to STOP DIAMOX. No Xal given uveitis Scheduled for tube, discussed that vision may worsen before that is done, patient expressed understanding and wishes to go forward with AGV rather than BSA OFFICER given hx of uveitis However patient does not have insurance and may need to wait over 1 month for AGV/phaco surgery risking complete blindness from glaucoma For this reason, will decide on possible BSA OFFICER next week vs awaiting surgery Bscan complete today left eye without mass or RD. 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) 007 Diabetes ([facility]) Parkinson disease ([facility]) Hypertension High cholesterol Glaucoma CRISTINA (obstructive sleep apnea) Loss of vision Sarcoidosis Encounters Date Type Department Care Team Description 02/06/2025 10:00 AM EDT Telemedicine Visit [address] [phone] Alva Ruiz PA-C 02/06/2025 Interim Notes [address] [address] Hiwot Rojas [place] 01/25/2025 1:00 PM EDT Office Visit [address] [phone] Yonatan Mayen, PharmD 01/16/2025 10:20 AM EDT Telemedicine Visit [address] [phone] Alva Ruiz PA-C 11/15/2024 3:00 PM EDT Office Visit [address] [address] Yonatan Mayen, PharmD from Last 3 Months Immunizations Immunization Administration Dates Next Due Flu, Preservative Free 08/25/2023,06/23/2022, Hep B, Adult/Adol (OLNEYWY-N-INHWS/RECOMBIVAX-ADULT) 06/25/2019 Hep B,adult,adjuvanted (HEPLISAV) 08/01/2024 INFLUENZA, SEASONAL, INJECTABLE 05/12/20 18,05/18/2016,05/06/2015,04/25,03/20/2009,04/19/2008 Influenza (FLUBLOK),recombinant,injectable,prese rvative Free 04/10/2024 Influenza, Whole 04/16/2014, 2,06/01/2011,04/28,04/25/2007 Moderna COVID-19 Vaccine, re d cap blue label, 12+ Primary Series 09/17/2020 PFIZER COVID VACCINE, PURPLE CAP, 12+ 07/17/2021 PNEUMOCOCCAL POLYSACCHARIDE PPV23 (Pneumovax 23) 01/19/2008 Pfizer-BioNTech COVID-19 Vac cine Bivalent, (VIVAR PFIZER-BIONTECH COVID-19 VACCINE BIVALENT, (VIVAR CAP 04/09/2022 TDAP 06/15/2019,08/09/2007 Td (adult) unspecified 01/08/2019 ZOSTER VACCINE, RECOMBINANT (SHINGRIX) 5,10/27/2022 Family History Medical History Relation Name Comments Heart Problems Brother hx open heart surgery Other (See Comments) Brother RSD Heart failure Father CHF Diabetes Mother Cancer Other paternal side Other (See Comments) Sister heart m urmur Relation Name Status Comments Brother Alive Father Mother Alive Other paternal side Alive Sister Alive Social History Tobacco Use Types Packs/Day Years Used Date Smoking Tobacco: Never Passive Smoke Exposure: Never Smokeless Tobacco: Never Tobacco Cessation:Counseling Given: Yes Alcohol Use Standard Drinks/Week Comments Not Currently 0 (1 standard drink = 0.6 oz pur e alcohol) sometimes// light drinker Social Connections Answer Date Recorded How often do you feel lonely or isolated from th ose around you? 1 08/01/2024 Financial Resource Strain Answer Date R ecorded Hard to pay for: Food 1 08/01/2024 Stress Answer Date Recorded Do you feel these kinds of stress these days? 1 08/01/2024 Physical Activity Answer Date Recorded Physical Activity 0 06/05/2019 Food Insecurity Answer Date Recorded Hard to pay for: Food 1 08/01/2024 Transportation Needs Answer Date Record ed Hard to pay for: Transportation 1 08/01/2024 Housing Stability Answer Date Recorded Hard to pay for: Rent/Mortgage payment 1 08/01/2024 Safety and Environment Answer Date Agustin rded Safety 1 12/07/2023 Utilities Answer Date Recorded Hard to pay for: Utilities 1 08/01 Employment Answer Date Recorded Stress 0 10/27/2021 Sex and Gender Information Value Date Recorded Sex Assigned at Male 06/05/2019 12:45 PM PST Legal Sex Male 9:58 AM PST Gender Identity Male 06/05/2019 12:45 PM PST Sexual Orientation Straight 06/05/2019 12 :45 PM PST 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 on file Not on file Not on file line haul owner operator Not on file Not on file Not on file Last Filed Vital Signs Vital Sign Reading Time Taken Comments Blood Pressure 140/90 01/25/2025 1:06 PM EDT Pulse 84 01/25/2025 1:06 PM EDT Temperature 36.9 C (98.4 F) 01/25/2025 1:06 PM EDT Respiratory Rate 16 01/25/2025 1:06 PM EDT Oxygen Saturation 98% 01/25/2025 1:06 PM EDT Inhaled Oxygen Concentration - - Weight 94.8 kg (209 lb) 02/06/2025 10:03 AM EDT Height 170.2 cm (5' 7 ) 02/06/2025 10:03 AM EDT Body Mass Index 32.73 02/06/2025 10:03 AM EDT Plan of Treatment Upcoming Encounters Date Type Department Care Team (Late st Contact Info) Description 02/22/2025 1:40 PM EDT Office Visit [facility] [address] [place] [phone] Yonatan Mayen, PharmD [address] [place] [address] Health Maintenance Due Date Last Done Comments Dental Examination 1968 CT Colonography 2013 Fecal DNA 2013 Flexible Sigmoidoscopy 2013 FIT/gFOBT 06/05/2019 06/05/2018 (Stephanie johnston by Outside Provider) Imm-Influenza (#1) 2025 04/10/2024, 0 08/25/2023, 06/23/2022, Additional history exists Hemoglobin A1c 04/11/2025 01/09/2025, 07/0 03/2025, 10/19/2024, Additional history exists Shm-MNUPT-19 ( - 2023- season) 2025 04/09/2022, 08/24/2021, 07/17/2021, Additional history exists Postponed from 03/04/2024 (Patient postponement) Imm-Hepatitis B (3 of 3 - 19+ 3-dose series) 04/18/2025 08/01/2024, 06/25/2019 Postponed from 09/26/2024 (Patient postponement) Imm-Pneumococcal 50+ (2 of 2 - PCV) 04/18/2025 01/19/2008 Postponed from 01/18/2009 (Patient postponement) Retinopathy Screening 05/02/2025 05/02/2024 , 12/05/2023, 12/05/2023 Annual Wellness (Adult): Indicated (All Coverage) 08/01/2025 08/01/2024, 06/16/2023, 03/30/2022, Additional history exists Anxiety Screening 08/01/2025 08/01/2024 Diabetes Foot Exam 08/24/2025 08/24/2024, 08/19/2023 Lipid Screening 10/19/2025 10/19/2024, 04/04, 12/07/2023, Additional history exists Serum Creatinine 01/09/2026 01/09/2025, , 07/27/2024, Additional history exists Urine Albumin Creatinine Ratio Screening 01/09/2026 01/09/2025, 10/19/2024, 03/09/2024, Additional history exists Tobacco Screening 02/06/2026 02/06/2025 Imm-DTaP/Tdap/Td (4 - Td or Tdap) 06/15/2029 06/15/2019, 01/08/2019, 08/09/2007 Colonoscopy 12/05/2029 12/05/2024 Colorectal Cancer Screening 12/05/2029 HIV Screening Completed 06/06/2019 Hepatitis C Screening Completed 10/27/2022 Alcohol and Drug Screen Completed 08/01/19, 04/26/2024, 12/07/2023, Additional history exists Depression Annual Screen Completed 08/01/2024 Imm-Zoster, Recombinant Completed 08/01/2024, 10/27 Procedures Procedure Name Priority Date/Time Associated Diagnosis Comments GLUCOSE, BLOOD BY GLUCOSE MONITORING DEVICE (CLIA WAIVED)POCT Routine 01/25/2025 1:16 PM EDT Type 2 diabetes mellitus with stage 3b chronic kidney disease, with long-term current use of insulin ([facility]) REFERRAL FOR COLONOSCOPY Routine 12/05/2024 3:00 AM EDT Colon cancer screening GLUCOSE, BLOOD BY GLUCOSE MONITORING DEVICE (CLIA WAIVED)POCT Routine 11/15/2024 5:14 PM EDT Type 2 diabetes mellitus with stage 3b chronic kidney disease, with long-term current use of insulin ([facility]) HGBA1C W/MPG Routine 06/04/2024 9:26 AM EST Type 2 diabetes mellitus with hyperglycemia, with long-term current use of insulin ([facility]) REFERRAL TO DIABETIC RETINAL EXAM Routine 05/02/2024 3:00 AM EDT Type 2 diabetes mellitus with hyperglycemia, with long-term current use of insulin ([facility]) Blurred vision, left eye COMPREHENSIVE METABOLIC PANEL Routine 04/23/2024 10:03 AM EDT Type 2 diabetes mellitus with hyperglycemia, with long-term current use of insulin ([facility]) Essential hypertension Mixed hyperlipidemia LIPID PANEL Routine 04/23/2024 10:03 AM EDT Type 2 diabetes mellitus with hyperglycemia, with long-term current use of insulin ([facility]) Essential hypertension Mixed hyperlipidemia MICROALBUMIN/CREATIN INE RATIO, URINE, RANDOM Routine 08/25/2023 11:09 AM EST Type 2 diabetes mellitus with other neurologic complication, without long-term current use of insulin ([facility]) ACUTE HEPATITIS PANEL W/RFLX Routine 10/27/2022 10:15 AM EDT Routine screening for STI (sexually transmitted infection) ANTIBODY HIV-1&HIV-2 SINGLE RESULT Routine 06/06/2019 11:25 AM EST Screening for HIV (human immunodeficiency virus) from Last 3 Months or Most Recently Relevant to Health Maintenance Results * (ABNORMAL) GLUCOSE, BLOOD BY GLUCOSE MONITORING DEVICE (CLIA WAIVED)POCT Routine (01/25/2025 1:16 PM EDT) Only the most recent of2 resultswithin the time period is included. GLUCOSE 113(A) 70 - 100 mg/dL [facility] POCT Capillary Blood Blood / Unknown 1:16 PM EDT Yonatan Raines PharmD LAB - BLOOD D RAW Final Result [facility] POCT * REFERRAL FOR COLONOSCOPY (12/05/2024 3:00 AM EDT) 12/05/2024 3:00 AM EDT Alva Ruiz PA-C REFERRAL Final Result * REFERRAL FOR DIABETIC RETINAL EXAM (05/02/2024 3:00 AM EDT) 05/02/2024 3:00 AM EDT Alva Ruiz PA-C REFERRAL Edited Resul t - Final * (ABNORMAL) LIPID PANEL (04/23/2024 10:03 AM EDT) CHOLESTEROL, TOTAL 200(H) <200 mg/dL [facility] HDL CHOLESTEROL 43 > OR = 40 mg/dL [facility] TRIGLYCERIDES 221(H) <150 mg/dL [facility] Comment: If a non-fasting specimen was collected, consider repeat triglyceride testing on a fasting specimen if clinically indicated. Ileana et al. J. of Clin. Lipidol. 2015;9:129-169. LDL-CHOLESTEROL 124(H) 99 mg/dL (calc) [facility] Comment: Reference range: <100 Desirable range <100 mg/dL for primary prevention; <70 mg/dL for patients with CHD or diabetic patients with > or = 2 CHD risk factors. LDL-C is now calculated using the Joni calculation, which is a validated novel method providing better accuracy than the Friedewald equation in the estimation of LDL-C. Jacoby DUMONT et al. SHARI. 2013;310(72): 5427-8250 (http://education.FiPath/faq/YNG898) CHOL/HDLC RATIO 4.7 <5.0 (calc) [facility] NON-HDL CHOLESTEROL 157(H) <130 mg/dL (calc) [facility] Comment: For patients with diabetes plus 1 major ASCVD risk factor, treating to a non-HDL-C goal of <100 mg/dL (LDL-C of <70 mg/dL) is considered a therapeutic option. Blood Blood / Unknown 04/23/2024 1 0:03 AM EDT 04/23/2024 10:04 AM EDT Narrative [employer] - 04/25/2024 7:42 AM EDT FASTING:YES us Alva Ruiz PA-C LAB - BLOOD DRAW Final Resul t [employer] [facility] [employer] [facility] [address] [place] [id number], [facility] [address] [place] [phone] * (ABNORMAL) COMPREHENSIVE METABOLIC PANEL (04/23/2024 10:03 AM EDT) GLUCOSE 185(H) 65 - 99 mg/dL [facility] Comment: Fasting reference interval For someone without known diabetes, a glucose value >125 mg/dL indicates that they may have diabetes and this should be confirmed with a follow-up test. UREA NITROGEN (BUN) 23 7 - 25 mg/dL [facility] CREATININE (blood) 2.06(H) 0.70 - 1.30 mg/dL [facility] EGFR 37(L) > OR = 60 mL/min/1. 73m2 [facility] BUN/CREATININE RATIO 11 6 - 22 (calc) [facility] SODIUM 132(L) 135 - 146 mmol/L [facility] POTASSIUM 4.5 3.5 - 5.3 mmol/L [employer] [facility] CHLORIDE 100 98 - 110 mmol/L [facility] [facility] CARBON DIOXIDE 26 20 - 32 mmol/L [facility] [facility] CALCIUM 9.0 8.6 - 10.3 mg/dL [employer] [facility] PROTEIN, TOTAL 6.4 6.1 - 8.1 g/dL [facility] [employer] [facility] ALBUMIN 4.0 3.6 - 5.1 g/dL [facility] GLOBULIN 2.4 1.9 - 3.7 g/dL (calc) [facility] ALBUMIN/GLOBULI N RATIO 1.7 1.0 - 2.5 (calc) [facility] BILIRUBIN, TOTAL 0.7 0.2 - 1.2 mg/dL [employer] [facility] ALKALINE PHOSPHATASE 85 35 - 144 U/L [employer] [facility] AST 13 10 - 35 U/L [facility] [facility] ALT 5(L) 9 - 46 U/L [employer] [facility] Blood Blood / Unknown 04/23/2024 1 0:03 AM EDT 04/23/2024 10:04 AM EDT Narrative [facility] - 04/25/2024 7:42 AM EDT FASTING:YES Alva Ruiz PA-C LAB - BLOOD DRAW Final Resul t [facility] [address] [address], [employer] [address] [phone] * (ABNORMAL) MICROALBUMIN/CREATININE RATIO, URINE, RANDOM (08/25/2023 11:09 AM EST) CREATININE, RANDOM URINE 166 20 - 320 mg/dL [employer] [facility] MICROALBUMIN 207.7 mg/dL [facility] [facility] Comment: Verified by repeat analysis. Reference Range Not established MICROALBUMIN/CREA TININE RATIO, RANDOM URINE 1,251(H) <30 mcg/mg creat [employer] [facility] Comment: The ADA defines abnormalities in albumin excretion as follows: Albuminuria Category Result (mcg/mg creatinine) Normal to Mildly increased <30 Moderately increased 30-299 Severely increased > OR = 300 The ADA recommends that at least two of three specimens collected within a 3-6 month period be abnormal before considering a patient to be within a diagnostic category. Urine Urine specimen / Unknown 08/25/2023 11:09 AM EST 08/25/2023 11:10 AM EST Narrative [employer] - 08/27/2023 8:24 PM EST FASTING:YES us Alva Ruiz PA-C LAB URINE AMBULATORY Final R esult [facility] [address] [address], [employer] [address] [phone] * HEPATITIS PANEL W/RFLX (10/27/2022 10:15 AM EDT) HEPATITIS A IGM ANTIBODY NON-REACT SUNNI NON-REACT SUNNI [facility] [facility] COMMENT [employer] [facility] HEPATITIS B SURFACE ANTIGEN NON-REACT SUNNI NON-REACT SUNNI [facility] [facility] HEPATITIS B CORE IGM ANTIBODY NON-REACT SUNNI NON-REACT SUNNI [facility] [facility] HEPATITIS C ANTIBODY NON-REACT SUNNI NON-REACT SUNNI [employer] [facility] SIGNAL TO CUT-OFF 0.11 <1.00 [facility] Comment: HCV antibody was non-reactive. There is no laboratory evidence of HCV infection. In most cases, no further action is required. However, if recent HCV exposure is suspected, a test for HCV RNA (test code 17466) is suggested. For additional information please refer to http://tagga.SafeMedia/faq/DIZ68x4 (This link is being provided for informational/ educational purposes only.) Blood Blood / Unknown 10/27/2022 1 0:15 AM EDT 10/27/2022 10:15 AM EDT Narrative [employer] - 10/28/2022 3:50 AM EDT For additional information, please refer to [email or web address] (This link is being provided for informational/ educational purposes only.) us Alva Ruiz PA-C LAB - BLOOD DRAW Final Resul t [facility] [address] [address], [facility] [address] [place] [address] * HIV-1 & HIV-2 ANTIBODIES (06/06/2019 11:25 AM EST) [facility] HIV 1 AND 2 ANTIBODY SCREEN NEGATIVE NEGATIVE [employer] [facility] Comment: This assay is a 4th generation assay allowing for earlier detection of HIV infection by detecting the presence of the HIV-1 p24 antigen as well as the traditional antibodies to HIV type 1 (including group O) and type 2. Use of a 4th generation assay is the current CDC recommendation for HIV screening. Blood specimen (specimen) Blood / Unknown 06/06/2019 11:25 AM EST 06/06/2019 11:29 AM EST Narrative [facility] - 06/06/2019 6:47 PM EST [employer], [place] [address] Manager Assurance - Sanjana Rush MD PT ID [id number] ORD# [id number] Niki Yates SEPARATIONS SCIENTIST LAB - BLOOD DRAW Final Result Performing Organization Address City/[facility]/ZIP Co de Phone Number [address] [address], from Last 3 Months or Most Recently Relevant to Health Maintenance Insurance [employer] Care Teams Perinatal Director Relationship Specialty Start Date End Date Alva Ruiz PA-C [address] [place] [address] PCP - General FAMILY MEDICINE, PA 05/15/21
--- OUTSIDE RECORDS SUMMARY | 2025-02-07 12:02 | XMS_ITS | Clinical Summary ---
Author Organization Merged With [facility] Address [address] [facility] [address] [place] [id number] Phone Care Team Providers Care [employer] Former Name Role Phone Alva Ruiz PA-C Primary Care Provider Allergies Active Allergy Reactions Criticality Noted Date Comments Sitagliptin 02/06/2020 c/o: myalgia has improved after stopping medication c/o: myalgia has improved after stopping medication Medications calcium-vitamin D3-vitamin K 500-200-40 mg-unit-mcg Chew Take 1 tablet by mouth. Active aspirin 81 MG EC tablet Take 81 mg by mouth. Active blood-glucose meter kit Use to test blood glucose twice daily. (Freestyle Lite) 4 Active brimonidine (ALPHAGAN) 0.2 % ophthalmic solution PLACE 1 DROP INTO LEFT EYE TWICE A DAY Active carbidopa-levod opa (SINEMET) 25-100 mg per tablet Take 1 tablet by mouth 3 (three) times a day. 3 Active carvedilol (COREG) 12.5 MG tablet Take 12.5 mg by mouth. 3 Active dorzolamide-maritza oloL (COSOPT) 22.3-6.8 mg/mL ophthalmic solution INSTILL ONE DROP INTO LEFT TWICE A DAY 4 Active LANTUS SOLOSTAR U-100 INSULIN 100 unit/mL (3 mL) InPn injection pen INJECT 50 UNITS INTO THE SKIN EVERY EVENING 4 Active insulin lispro (ADMELOG, HUMALOG) 100 unit/mL injection pen INJECT 14-16 UNITS INTO THE SKIN 3 (THREE) TIMES DAILY BEFORE MEALS (MAX 48 UNITS DAILY) 4 Active lancets 28 gauge Misc Use to check BG TID DX E11.49 Freestyle Lancets 4 Active insulin pen needles, disposable, 32 gauge x /32 Ndle Use to inject insulin 4X/D UD DXE11.65 4 Active rOPINIRole (REQUIP XL) 6 mg Tb24 TAKE 1 TABLET BY MOUTH EVERY MORNING FOR 90 DAYS Active rosuvastatin (CRESTOR) 20 MG tablet Take 20 mg by mouth. Active spironolactone (ALDACTONE) 25 MG tablet Take 12.5 mg by mouth daily. Active triamcinolone acetonide 0.1 % cream APPLY TO LEGS TWICE DAILY FOR 2 WEEKS, THEN DO NOT USE FOR FOLLOWING WEEK. REPEAT COURSE NEEDED 4 Active trihexyphenidyL (ARTANE) 2 MG tablet TAKE 1 TABLET BY MOUTH TWICE A DAY WITH FOOD (MEAL/SNACK) 4 Active valsartan (DIOVAN) 40 MG tablet Take 40 mg by mouth. 4 Active Family History Medical History Relation Comments Heart disease Father Relation Status Comments Father Mother Alive Social History Tobacco Use Types Packs/Day Years Used Date Smoking Tobacco: Never Smokeless Tobacco: Never Tobacco Cessation:Counseling Given: Not Answered Alcohol Use Standard Drinks/Week Comments Not Currently 0 (1 standard drink = 0.6 oz pur e alcohol) Education Answer Date Recorded Are you interested in more education? Not on ave e 01/25/2024 Are you concerned about learning? Not on file 01/25/2024 No 01/25/2024 No 01/25/2024 Digital Access Answer Date Recorded No 01/25/2024 No 01/25/2024 Reliable internet access at home? Not on file 01/25/2024 Device with a working camera? Not on file Sex and Gender Information Value Date Recorded Sex Assigned at Not on file Legal Sex Male 9:36 PM EDT Gender Identity Not on file Sexual Orientation Not on file Last Filed Vital Signs Vital Sign Reading Time Taken Comments Blood Pressure 138/88 01/31/2024 9:49 AM EDT Pulse 81 01/31/2024 9:49 AM EDT Temperature - - Respiratory Rate - - Oxygen Saturation - - Inhaled Oxygen Concentration - - Weight 98.1 kg (216 lb 3.2 oz) 01/31/2024 9:49 A M EDT Height 174 cm (5' 8.5 ) 01/31/2024 9:49 AM EDT Body Mass Index 32.39 01/31/2024 9:49 AM EDT Plan of Treatment Health Maintenance Due Date Last Done Comments CREATININE LEVEL 1968 POTASSIUM LEVEL 1968 DEPRESSION SCREENING 1980 HEPATITIS C SCREENING 1986 HIV ONE-TIME SCREENING (18-65 YEARS) 1986 SMOKING STATUS SCREENING (Once After 26 Yrs) 1994 COLOGUARD 2013 COLONOSCOPY 2013 COLORECTAL CANCER SCREENING 2013 FIT TEST 2013 FOBT 2013 SIGMOIDOSCOPY 2013 VIRTUAL COLONOSCOPY 2013 PNEUMOCOCCAL VACCINES (50+ years) (1 of 1 - PCV) 2018 ZOSTER VACCINES (1 of 2) 2018 COVID-19 VACCINE ( - season) 2024 SCREENING FOR DIABETES 11/22/2026 11/23/2023 LIPID PANEL 12/06/2028 12/07/2023, 06/0 11/2023, 08/25/2023, Additional history exists Adult Td,Tdap Booster 06/15/2029 06/15/2019, 008 HEPATITIS A VACCINES Aged Out No long er eligible based on patient's age to complete this topic HIB VACCINES Aged Out No longer eligi ble based on patient's age to complete this topic MENINGOCOCCAL VACCINES (ACWY) Aged Out No longer eligible based on patient's age to complete this topic MENINGOCOCCAL VACCINES (B) Aged Out N o longer eligible based on patient's age to complete this topic Medical Devices Not on file Insurance [address] [place] [address] [employer] DIRECT [employer] [place] [address] [place] [address] [place] [address] [place] [place] [address] [employer] Care Teams [employer] Former Relationship Specialty Start Date End Date Alva Ruiz PA-C PCP - General Physician Windows Administrator 01/25/24 Additional Source Comments The information contained in this document represents components of the legal health record. It is not the complete legal health record.[facility]
--- OUTSIDE RECORDS SUMMARY | 2025-02-07 12:03 | XMS_ITS | Clinical Summary ---
Author Organization 175 [facility] Address [address] [place] [address] Phone Care Team Providers Care Slide Fastener Repairer Name Role Phone Alva Ruiz Primary Care Provider [phone] Allergies Active Allergy Reactions Criticality Noted Date Comments Sitagliptin 02/06/2020 c/o: myalgia has improved after stopping medication c/o: myalgia has improved after stopping medication c/o: myalgia has improved after stopping medication c/o: myalgia has improved after stopping medication Medications aspirin 81 mg EC tablet Take 1 tablet (81 mg total) by mouth 1 (one) time each day. Active blood sugar diagnostic (FreeStyle Lite Strips) test strip USE TO CHECK BLOOD GLUCOSE LEVELS 3 TIMES A DAY Active blood-glucose meter kit Use to test blood glucose twice daily. (Freestyle Lite) 4 Active brimonidine (ALPHAGAN) 0.2 % ophthalmic solution Administer 1 drop into both eyes 3 (three) times a day. Active calcium-vitamin D3-vitamin K 500 mg-200 unit -40 mcg tablet,chewable Chew 1 tablet 1 (one) time each day. Active carbidopa-levod opa (SINEMET) 25-100 mg per tablet Take 2 tablets by mouth 6 (six) times a day. 4 Active carvediloL (COREG) 25 mg tablet Take 1 tablet (25 mg total) by mouth 2 times daily. 4 Active cholecalciferol (VITAMIN D-3) 50 mcg (2,000 unit) capsule Take 1 capsule (2,000 Units total) by mouth daily. 5 Active dorzolamide-maritza oloL (COSOPT) 22.3-6.8 mg/mL ophthalmic solution Administer 1 drop into both eyes 2 (two) times a day. Active Lantus Solostar U-100 Insulin 100 unit/mL (3 mL) injection pen Inject 44-46 Units under the skin at bedtime. 4 Active insulin lispro (HumaLOG KwikPen) 100 unit/mL injection pen Inject under the skin 3 (three) times a day before meals. 4 Active freestyle 28 gauge lancets Use to check BG TID DX E11.49 Freestyle Lancets 4 Active loratadine (CLARITIN) 10 mg tablet 1 tablet (10 mg total) if needed. 5 Active rosuvastatin (CRESTOR) 20 mg tablet Take 1 tablet (20 mg total) by mouth 1 (one) time each day. Active spironolactone (ALDACTONE) 25 mg tablet Take 0.5 tablets (12.5 mg total) by mouth 1 (one) time each day. 4 Active Ozempic 0.25 mg or 0.5 mg (2 mg/3 mL) injection pen Inject 0.25 mg under the skin every 7 (seven) days. 4 Active trihexyphenidyL (ARTANE) 2 mg tablet Take 0.5 tablets (1 mg total) by mouth 2 (two) times a day with meals. Active valsartan (DIOVAN) 40 mg tablet Take 1 tablet (40 mg total) by mouth at bedtime. Active triamcinolone (KENALOG) 0.1 % cream APPLY TO LEGS TWICE DAILY FOR 2 WEEKS, THEN DO NOT USE FOR FOLLOWING WEEK. REPEAT COURSE NEEDED Authorized by: LAURIE WILSON 4 Active polyethylene glycol (Golytely) 236-22.74-6.74 -5.86 gram solution Take 4L by mouth once for one dose. May substitue any PEG. Starting at 6PM the night before your procedure drink 1 8oz glasses at your own pace until you complete half of the gallon. Finish 2nd half of the gallon 5 hours before your procedure. 4000 mL 5 Active bisacodyL (DULCOLAX) 5 mg EC tablet Take 2 tablets by mouth right before beginning bowel prep. See instructions provided by the office 2 tablet 5 Active rOPINIRole XL (REQUIP XL) 6 mg 24 hr tablet Take 1 tablet (6 mg total) by mouth 1 (one) time each day in the morning. Active dapagliflozin propanediol (Farxiga) 10 mg tablet Take 1 tablet (10 mg total) by mouth 1 (one) time each day. Active diclofenac (VOLTAREN) 1 % topical gel APPLY 2 G TOPICALLY 2 (TWO) TIMES DAILY. 5 Active lidocaine (LIDODERM) 5 % patch Apply 1 patch topically 1 (one) time each day. Remove & discard patch within 12 hours or as directed by . 30 each 2 5 025 Active doxycycline (Vibramycin) 100 mg capsule Take 1 capsule (100 mg total) by mouth 2 (two) times a day for 7 days. 14 capsule 5 025 Encounters Date Type Department Care Team Description 01/02/2025 9:30 AM EDT Office Visit Orthopedic Surgery [place] [id number] [address] Sudheer Pascual DPM Type 2 diabetes mellitus with hyperglycemia, with long-term current use of insulin ([facility], [facility] V28) (Primary Dx); Peripheral venous insufficiency; Cellulitis of left foot; Ulcer of toe of left foot, with fat layer exposed ([facility] V24, [facility] V28) 01/01/2025 Telephone Orthopedic Surgery [facility] [address] [address] Sudheer Pascual DPM ulcer left great toe 12/18/2024 1:00 PM EDT Consult Orthopedic [place] [phone] [phone] Guy Gomez DPM Diabetic mononeuropathy simplex ([facility] V24, [facility] V28) (Primary Dx); Type 2 diabetes mellitus with hyperglycemia, with long-term current use of insulin ([facility] V24, [facility] V28); Peripheral venous insufficiency; Dermatophytosis of nail; Pain in toe of right foot; Pain in toe of left foot 12/10/2024 [address] [address] [place] [address] Glory Robles MD 12/05/2024 1:49 PM EDT Anesthesia Event [facility] Endoscopy [address] [place] [address] Carlos Mcallister MD 12/05/2024 11:34 AM EDT - 12/05/2024 11:59 PM EDT Hospital Encounter [facility] Endoscopy [address] [place] [address] Ansley Nguyen DO Guerin, Erik R, Carlos Joyce MD Colon cancer screening Discharge Disposition: Home or Self Care from Last 3 Months Immunizations Name Administration Dates Next Due Moderna SARS-CoV-2 COVID-19, mRNA, LNP-S, preservative free 04/09/2022 Surgical History Surgery Date Site/Laterality Comments COLOSTOMY Medical History Medical History Date Comments Parkinson disease ([facility], [facility] V28[facility] Diabetes mellitus ([facility], [facility] V28) Hyperlipidemia Hypertension Glaucoma Sleep apnea Loss of vision Sarcoidosis Katie's disease ([facility], [facility] V28) Vitamin D deficiency Cataracts, bilateral Anal fissure Pneumothorax CKD (chronic kidney disease), stage III ([facility] V24, [facility] V28) Pneumonia CHF (congestive heart failure) ([facility], [facility] V28) NSTEMI (non-ST elevated myoc ardial infarction) ([facility], [facility] V28) Nephrolithiasis Restless leg syndrome Cardiomyopathy ([facility], [facility] V28) Obesity Covid-19 Social History Tobacco Use Types Packs/Day Years Used Date Smoking Tobacco: Never Smokeless Tobacco: Never Tobacco Cessation:Counseling Given: Not Answered Alcohol Use Standard Drinks/Week Comments Yes 0 (1 standard drink = 0.6 oz pur e alcohol) Interpersonal Safety Answer Date Record ed Physical Abuse 12/05/2024 Verbal Abuse 12/05/2024 Sex and Gender Information Value Date Recorded Sex Assigned at Not on file Legal Sex Male 4:52 AM EST Gender Identity Not on file Sexual Orientation Not on file Obstetrics History Last Filed Vital Signs Vital Sign Reading Time Taken Comments Blood Pressure 104/65 12/05/2024 2:36 PM EDT Pulse 82 12/05/2024 2:36 PM EDT Temperature 36.5 C (97.7 F) 12/05/2024 2:08 PM EDT Respiratory Rate 18 12/05/2024 2:36 PM EDT Oxygen Saturation 98% 12/05/2024 2:36 PM EDT Inhaled Oxygen Concentration - - Weight 96.2 kg (212 lb) 11/27/2024 12:00 PM EDT Height 177.8 cm (5' 10 ) 11/27/2024 12:00 PM EDT Body Mass Index 30.42 11/27/2024 12:00 PM EDT Plan of Treatment Upcoming Encounters Date Type Department Care Team ([facility] st Contact Info) Description 02/20/2025 1:30 PM EDT Office Visit [facility] [place] [address] [phone] Guy Gomez, DPM [address] [address] Health Maintenance Due Date Last Done Comments Diabetes: Annual Foot Exam 1978 Diabetes: Annual Retina Eye Exam 1978 Pneumococcal Vaccine: 50+ Years (2 of 2 - PCV) 01/18/2009 01/19/2008 Social Influencers of Health Screening 06/06/2022 COVID-19 Vaccine ( season) 2024 04/09/2022, 08/24/2021, 07/17/2021, Additional history exists Depression Screening 07/04/2024 Hepatitis B Vaccines (3 of 3 - 19+ 3-dose series) 09/26/2024 08/01/2024, 06/25/2019 Influenza Vaccine (#1) 2025 , 08/25/2023, 06/23/2022, Additional history exists Diabetes: Blood Sugar Control Test (HGBA1C) 04/20/2025 10/19/2024, 10/19/2024, 07/27/2024, Additional history exists Diabetes: Annual GFR (Glomerular Filtration Rate) 04/23/2025 04/23/2024 Hypertension/CHF/CAD Annual BMP Blood Test 04/23/2025 04/23/2024 Diabetes: Annual Urine Albumin-Creatinine Ratio (uACR) 10/19/2025 10/19/2024, 08/25/2023, 10/27/2022, Additional history exists Colorectal Cancer Screening: Colonoscopy 12/06/2027 12/05/2024 DTaP,Tdap,and Td Vaccines (4 - Td or Tdap) 06/15/2029 06/15/2019, 01/08/2019, 08/09/2007 Cholesterol Screening (Lipid Panel) 10/19/2029 10/19/2024, 04/23/2024, 04/23/2024, Additional history exists HIV Screening Completed 06/06/2019 Hepatitis C Screening Completed 10/27/2022 Zoster Vaccines Completed 08/01/2024, 10/27/2022 HIB Vaccines Aged Out No longer eligi [...] on patient's age to complete this topic MMR Vaccines Aged Out No longer eligi ble based on patient's age to complete this topic Meningococcal ACWY Vaccine Aged Out N o longer eligible based on patient's age to complete this topic Meningococcal B Vaccine Aged Out No l onger eligible based on patient's age to complete this topic RSV Immunization Patients Under 20 months Aged Out No longer eligible based on patient's age to complete this topic Varicella Vaccines Aged Out No longer eligible based on patient's age to complete this topic Procedures Procedure Name Priority Date/Time Associated Diagnosis Comments COLONOSCOPY Routine 12/05/2024 2:07 PM EDT Colon cancer screening TISSUE EXAM Routine 12/05/2024 2:01 PM EDT Colon cancer screening from Last 3 Months Results * COLONOSCOPY Anesthesia - MAC; [facility] ENDOSCOPY (12/05/2024 2:07 PM EDT) Anatomical Region Laterality Modality Endoscopy 12/05/2024 1:46 PM EDT Impressions 12/05/2024 2:04 PM EDT - Hemorrhoids found on perianal exam. - One 12 mm polyp in the sigmoid colon, removed with a hot snare. Resected and retrieved. - The examination was otherwise normal on direct and retroflexion views. Recommendation: - Discharge patient to home. - High fiber diet. - Continue present medications. - Await pathology results. - Repeat colonoscopy for surveillance based on pathology results. Narrative 12/05/2024 2:04 PM EDT [facility] GI Patient Name: Laverne Torres Procedure Date: 12/05/2024 1:46 PM Date of : 1970 Age: 54 Gender: Male Note Status: Finalized Attending MD: Ansley Nguyen DO, [id number] Procedure Date No Time: 12/05/2024 Procedure: Colonoscopy Indications: Screening for colorectal malignant neoplasm Providers: Ansley Nguyen DO Referring MD: Alva Ruiz PA-C Medicines: Monitored Anesthesia Care Complications: No immediate complications. Estimated blood loss: Minimal. Estimated Blood Loss: Estimated blood loss was minimal. Procedure: Pre-Anesthesia Assessment: - - Prior to the procedure, a History and Physical was performed, and patient medications and allergies were reviewed. The patient is competent. The risks and benefits of the procedure and the sedation options and risks were discussed with the patient. All questions were answered and informed consent was obtained. Patient identification and proposed procedure were verified by the physician, the nurse, the anesthesiologist, the fruit stuffer and the tax map technician in the pre-procedure area in the endoscopy suite. Mental Status Examination: alert and oriented. Airway Examination: normal oropharyngeal airway and neck mobility. Respiratory Examination: clear to auscultation. CV Examination: normal. Prophylactic Antibiotics: The patient does not require prophylactic antibiotics. Prior Anticoagulants: The patient has taken no anticoagulant or antiplatelet agents. ASA Grade Assessment: II - A patient with severe systemic disease. After reviewing the risks and benefits, the patient was deemed in satisfactory condition to undergo the procedure. The anesthesia plan was to use monitored anesthesia care (MAC). Immediately prior to administration of medications, the patient was re-assessed for adequacy to receive sedatives. The heart rate, respiratory rate, oxygen saturations, blood pressure, adequacy of pulmonary ventilation, and response to care were monitored throughout the procedure. The physical status of the patient was re-assessed after the procedure. After I obtained informed consent, the scope was passed under direct vision. Throughout the procedure, the patient's blood pressure, pulse, and oxygen saturations were monitored continuously. The Colonoscope was introduced through the anus and advanced to the cecum, identified by appendiceal orifice and ileocecal valve. The colonoscopy was performed without difficulty. The patient tolerated the procedure well. The quality of the bowel preparation was good. The ileocecal valve, appendiceal orifice, and rectum were photographed. Findings: Hemorrhoids were found on perianal exam. A 12 mm polyp was found in the sigmoid colon. The polyp was semi-pedunculated. The polyp was removed with a hot snare. Resection and retrieval were complete. Estimated blood loss was minimal. The exam was otherwise without abnormality on direct and retroflexion views. Procedure Code(s): --- Professional --- 54799, Colonoscopy, flexible; with removal of tumor(s), polyp(s), or other lesion(s) by snare technique Diagnosis Code(s): --- Professional --- D12.5, Benign neoplasm of sigmoid colon K64.9, Unspecified hemorrhoids Z12.11, Encounter for screening for malignant neoplasm of colon CPT copyright 2020 [employer]. All rights reserved. The codes documented in this report are preliminary and upon manager critical care unit review may be revised to meet current compliance requirements. ANSLEY Nguyen DO 12/05/2024 2:04:22 PM This report has been signed electronically.Ansley Nguyen DO Number of Addenda: 0 Note Initiated On: 12/05/2024 1:46 PM Scope Withdrawal Time: 0 hours 8 minutes 47 seconds Scope In: 1:52:03 PM Scope Out: 2:03:09 PM Endoscopy Department at [facility] - [address] [place] [phone] Procedure Note Ansley Nguyen DO - 12/05/2024 [facility] GI Patient Name: Laverne Torres Procedure Date: 12/05/2024 1:46 PM Date of : 1970 Age: 54 Gender: Male Note Status: Finalized Attending MD: Ansley Nguyen DO, [id number] Procedure Date No Time: 12/05/2024 Procedure: Colonoscopy Indications: Screening for colorectal malignant neoplasm Providers: Ansley Nguyen DO Referring MD: Alva Ruiz PA-C Medicines: Monitored Anesthesia Care Complications: No immediate complications. Estimated blood loss: Minimal. Estimated Blood Loss: Estimated blood loss was minimal. Procedure: Pre-Anesthesia Assessment: - - Prior to the procedure, a History and Physicalwas performed, and patient medications and allergieswere reviewed. The patient is competent. The risks and benefits of the procedure and the sedation optionsand risks were discussed with the patient. Allquestions were answered and informed consent was obtained. Patient identification and proposed procedure were verified by the physician, the nurse, the anesthesiologist, the fruit stuffer and thetechnician in the pre-procedure area in the endoscopy suite. Mental Status Examination: alert and oriented.Airway Examination: normal oropharyngeal airway and neck mobility. Respiratory Examination: clear to auscultation. CV Examination: normal. Prophylactic Antibiotics: The patient does not requireprophylactic antibiotics. Prior Anticoagulants: The patient has taken no anticoagulant or antiplatelet agents. ASA Grade Assessment: II - A patient with severesystemic disease. After reviewing the risks and benefits,the patient was deemed in satisfactory condition to undergo the procedure. The anesthesia plan was touse monitored anesthesia care (MAC). Immediately priorto administration of medications, the patient was re-assessed for adequacy to receive sedatives. The heart rate, respiratory rate, oxygen saturations, blood pressure, adequacy of pulmonary ventilation,and response to care were monitored throughout the procedure. The physical status of the patient was re-assessed after the procedure. After I obtained informed consent, the scope was passed under direct vision. Throughout theprocedure, the patient's blood pressure, pulse, and oxygen saturations were monitored continuously. The Colonoscope was introduced through the anus and advanced to the cecum, identified by appendiceal orifice and ileocecal valve. The colonoscopy was performed without difficulty. The patient tolerated the procedure well. The quality of the bowel preparation was good. The ileocecal valve,appendiceal orifice, and rectum were photographed. Findings: Hemorrhoids were found on perianal exam. A 12 mm polyp was found in the sigmoid colon. The polyp was semi-pedunculated. The polyp was removed with a hot snare. Resection and retrieval were complete. Estimated blood loss was minimal. The exam was otherwise without abnormality ondirect and retroflexion views. Procedure Code(s): --- Professional --- 03288, Colonoscopy, flexible; with removal of tumor(s), polyp(s), or other lesion(s) by snare technique Diagnosis Code(s): --- Professional --- D12.5, Benign neoplasm of sigmoid colon K64.9, Unspecified hemorrhoids Z12.11, Encounter for screening for malignantneoplasm of colon CPT copyright 2020 [employer]. All rights reserved. The codes documented in this report are preliminary and upon manager critical care unit reviewmay be revised to meet current compliance requirements. ANSLEY Nguyen DO 12/05/2024 2:04:22 PM This report has been signed electronically.Ansley Nguyen DO Number of Addenda: 0 Note Initiated On: 12/05/2024 1:46 PM Scope Withdrawal Time: 0 hours 8 minutes 47 seconds Scope In: 1:52:03 PM Scope Out: 2:03:09 PM Endoscopy Department at [facility] - [address] [place] [phone] IMPRESSION: - Hemorrhoids found on perianal exam. - One 12 mm polyp in the sigmoid colon, removedwith a hot snare. Resected and retrieved. - The examination was otherwise normal on directand retroflexion views. Recommendation: - Discharge patient to home. - High fiber diet. - Continue present medications. - Await pathology results. - Repeat colonoscopy for surveillance based on pathology results. us Ansley Nguyen DO GI~PROCEDURE ORDERABLES Final Re sult * Tissue exam (12/05/2024 2:01 PM EDT) Final Diagnosis A. 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 - Stalk margin appears negative for adenoma. Note: Close clinical follow-up is recommended to ensure the lesion is entirely removed. 12/06/2024 11:28 AM EDT [facility] ([facility]) [facility] Gross Description A. Large Intestine, Sigmoid Colon, polyp x1: Labeled Sig colon polyp x 1 . Received in formalin is a 1.2 x 1 x 0.8 cm tejeda-pink mucosal polyp. The resection margin is inked black. The polyp is bisected and entirely submitted in one cassette, two pieces, multiple levels on one slide. LONNIE 12/06/2024 11:28 AM EDT [facility] Disclaimer Unless otherwise specified, all tissue is 10% NB formalin fixed and paraffin embedded. 12/06/2024 11:28 AM EDT [facility] Tissue Sigmoid colon structure / Unknown 12/05/2024 2:01 PM EDT 12/05/2024 2:56 PM EDT us Ansley Nguyen DO LAB PATHOLOGY ORDERABLES Final R esult [facility] [address] [place] [address], from Last 3 Months Insurance * Guarantor: Laverne Torres Account Type Relation to Patient Date of Phone Billing Address Personal/Family Self [id number] [address] MED[place] Care Teams Slide Fastener Repairer Relationship Specialty Start Date End Date Alva Ruiz PA [address] [place] [address] PCP - General 08/30/23
== END 2025-02-07 12:23 | disposition home or self-care (01) ==
LOC: HO.HSMS 11:20
PROVIDERS: PCP Physician Assistant Medical; Visit Provider Physician Assistant Medical
DX: G20.A2 Parkinson's disease without dyskinesia, with fluctuations (principal); G25.81 Restless legs syndrome; G47.62 Sleep related leg cramps; G47.33 Obstructive sleep apnea (adult) (pediatric)
CPT/HCPCS: 99214

== ENCOUNTER → 2025-02-07 11:20 | Outpatient (BNVA) | payer MEDICAID, SELFPAY | PROVIDERS: PCP Physician Assistant Medical; Visit Provider Physician Assistant Medical | DX: G47.33 Obstructive sleep apnea (adult) (pediatric) (principal); G20.A2 Parkinson's disease without dyskinesia, with fluctuations; G25.81 Restless legs syndrome; G47.62 Sleep related leg cramps | CPT/HCPCS: 99212 ==

== ENCOUNTER 2025-03-25 12:55 | Outpatient (AMB) | payer MEDICAID, SELFPAY ==
--- NOTE | 2025-03-25 12:57 | A.OFFVIS_ITS ---
Vital Signs 03/25/25 12:58 Height 5 ft 8 in Weight 208 lb 4 oz BMI 31.7 BP 122/70 Blood Pressure Location Rt brachial Position Sitting Pulse 72 Pulse Source Pulse Oximeter Pulse Oximetry (%) 95 Oxygen Delivery Method Room Air Intake Visit Reasons: 6 mnts Intake Note: Follow up Sleep related leg cramps, CRISTINA last seen Christina Rodas Vice President Of Procurement Required: No Accompanied by: Self / Same As Patient Allergies No Known Allergies Allergy (Verified 03/25/25 12:57) Medication List - Last Reconciled 03/25/25 by Kusum Mercer MD alcohol swabs pad topical TID atropine 1% 1 drp PO Q4-6H PRN blood sugar diagnostic (FreeStyle Lite Strips) As directed brimonidine 0.2% 1 drp ophthalmic (eye) Q8H carbidopa-levodopa 25-100 mg 2 tabs PO QID carvedilol 12.5 mg PO BID cholecalciferol (vitamin D3) 25 mcg PO DAILY dapagliflozin propanediol (Farxiga) 10 mg PO DAILY diclofenac sodium 1% 2 grams topical BID dorzolamide-timolol 22.3-6.8 mg/mL 1 drp ophthalmic (eye) BID insulin glargine (Lantus Solostar U-100 Insulin) 50 units subcut QPM insulin lispro (Humalog KwikPen (U-100) Insulin) subcut lancets (FreeStyle Lancets) As directed lidocaine 5% 1 patch topical DAILY loratadine 10 mg PO DAILY PRN mecobalamin (vitamin B12) (B12 Active) 1,000 mcg PO DAILY pen needle, diabetic (BD Maite 2nd Gen Pen Needle) As directed pen needle, diabetic (BD Ultra-Fine Short Pen Needle) As directed ropinirole ER 6 mg PO QAM rosuvastatin 10 mg PO DAILY spironolactone 12.5 mg PO DAILY triamcinolone acetonide 0.1% appl topical trihexyphenidyl 2 mg PO BID valsartan 40 mg PO BEDTIME zinc gluconate 50 mg PO DAILY HPI Comments Details: Details 54y/o male with Parkinsons comes for follow up.He also has CRISTINA and is on CPAP . but his RLS is worse and he stopped using CPAP. HI Hg A1 C is 8.7 . he reports increased pain in his feet. He was diagnosed with parkinsonism in 2018 and is on sinemet.He feels he is slower and also the medication wears off early. when the med wear off he has trouble walking and has stiffness and pain. MICHEL was c/w carli decreased activity in Basal ganglia He denies a memory issues. He denies REM behavior disorder, vivid dreams, depression or anxiety. SPeech- is softer. He has night time drooling. He has right hand rest tremors, slow movements in all his extremities He has difficulty writing using utensils, showering , dressing etc. Gait is slow. no falls He denies constipation, dizziness, double vision ( lost vision in his left eye due to glaucoma) He reports burning tingling numbness in his feet at night when he is trying to sleep. when he walks its better. [facility] Medical History (Updated 03/25/25 @ 13:17 by Kusum Mercer MD) Neuropathy Obstructive sleep apnea hypopnea, moderate Parkinson's disease without dyskinesia, without mention of fluctuations Uveitic glaucoma Parkinson's disease without dyskinesia or fluctuating manifestations Hypersomnia Carpal tunnel syndrome of right wrist Obstructive sleep apnea Katie's disease Diabetes Hyperlipidemia HTN (hypertension) Sarcoidosis Surgical History No history of previous surgery Family History Mother Diabetes mellitus Father Heart failure Social History Alcohol intake: current Alcohol intake frequency: holidays/special occasions only Patient Tobacco Use Status: Never used Tobacco Current occupational status: employed Current occupation: Dealership Physical Exam Vital Signs: Last Vital Signs Pulse 72 03/25/25 12:58 BP 122/70 03/25/25 12:58 Pulse Ox 95 03/25/25 12:58 Oxygen Delivery Method Room Air 03/25/25 12:58 BMI result Body Mass Index 31.7 Const General: cooperative, healthy appearing and no acute distress Nutritional Appearance: overweight Orientation/consciousness: patient oriented x3 HEENT Head: Yes normal to inspection Neck Other: mild antecollis and restricted range of motion Neuro Other: Moderate decreased blink and facial expression slow tongue movements Voice- normal Right UE rest tremors Fine Finger movements - mild decreased carli R>L Alternating hand movements - normal Hand movements - normal Foot taps- normal No cog wheel rigidity gait - good stride, mild slowness, decreased arm swings r>L General: patient oriented x3 and no focal motor deficits Cranial nerves: Yes CN's II-XII intact bilaterally, Yes Bilaterally intact EOM present, Yes Normal facial strength present and Yes Midline tongue present Motor exam (neuro): 5/5 motor strength present throughout and Normal motor muscle tone present throughout Coordination: [id number] test normal Assessment & Plan Assessment & Plan (1) Parkinson's disease without dyskinesia, without mention of fluctuations: Code(s): G20.A1 - Parkinson's disease without dyskinesia, without mention of fluctuations Category: Medical Qualifiers: Fluctuating manifestations: with fluctuating manifestations Qualified Code(s): G20.A2 - Parkinson's disease without dyskinesia, with fluctuations (2) Restless legs syndrome (RLS): Code(s): G25.81 - Restless legs syndrome Category: Medical (3) Leg cramps, sleep related: Comment: continue ropinirole ER 6mg po in the AM and alpha lipoic acid 250mg po daily Code(s): G47.62 - Sleep related leg cramps Category: Medical (4) Obstructive sleep apnea: Comment: referred to sleep dentistry as patient can not tolerate cpap due to REM sleep disorder behavior Code(s): G47.33 - Obstructive sleep apnea (adult) (pediatric) Category: Medical (5) Neuropathy: Code(s): G62.9 - Polyneuropathy, unspecified Category: Medical Plan Parkinsons Disorder Sinemet 25/100 2 tabs qid, . MICHEL scan results reviewed, decreased activity in putamen. CRISTINA cpap not tolerated, (REM sleep behavior)will referred to sleep dentistry for mandibular device. F/u with rheumatology, opthamology, nephrology and endocrine. I will trial him on gabapentin 300mg tid for foot pain. Medications: New gabapentin 300 mg PO Q8H 90 caps 6RF Coding Level of Care Code Est Pt Level 4 (29957) Complex EM visit Add On G2211 Diagnoses Parkinson's disease without dyskinesia, with fluctuating manifestations G20.A2 Fluctuating manifestations: with fluctuating manifestations Restless legs syndrome (RLS) G25.81 Leg cramps, sleep related G47.62 Obstructive sleep apnea G47.33 Neuropathy G62.9
[2025-03-25 12:58] VITALS: BP 122/70; PULSE 72; O2SAT 95; BMI 31.7
--- OUTSIDE RECORDS SUMMARY | 2025-03-25 15:20 | XMS_ITS | Clinical Summary ---
Demographics Address [address] [place] [address] Mobile Phone Preferred Language Cymro Marital Status Single Jewish Affiliation Unknown
--- OUTSIDE RECORDS SUMMARY | 2025-03-25 15:21 | XMS_ITS | Encounter Summary ---
Demographics Address [address] [place] [address]
== END 2025-03-25 13:29 | disposition home or self-care (01) ==
LOC: HO.HSMS 12:56
PROVIDERS: PCP Physician Assistant Medical; Visit Provider Psychiatry & Neurology Neurology
DX: G20.A2 Parkinson's disease without dyskinesia, with fluctuations (principal); G25.81 Restless legs syndrome; G47.62 Sleep related leg cramps; G47.33 Obstructive sleep apnea (adult) (pediatric); G62.9 Polyneuropathy, unspecified
CPT/HCPCS: 99214

== ENCOUNTER → 2025-03-25 12:55 | Outpatient (BNVA) | payer MEDICAID, SELFPAY | PROVIDERS: PCP Physician Assistant Medical; Visit Provider Psychiatry & Neurology Neurology | DX: G25.81 Restless legs syndrome (principal); G47.62 Sleep related leg cramps; G47.33 Obstructive sleep apnea (adult) (pediatric); G62.9 Polyneuropathy, unspecified | CPT/HCPCS: 99212 ==

== ENCOUNTER 2025-05-28 14:51 | Outpatient (AMB) | payer MEDICAID, SELFPAY ==
[2025-05-28 14:54] VITALS: BP 138/80; PULSE 70; O2SAT 99; BMI 31.6
--- NOTE | 2025-05-28 14:54 | A.OFFVIS_ITS ---
Vital Signs 05/28/25 14:54 Height 5 ft 8 in Weight 208 lb BMI 31.6 BP 138/80 Blood Pressure Location Rt brachial Position Sitting Pulse 70 Pulse Source Pulse Oximeter Pulse Oximetry (%) 99 Oxygen Delivery Method Room Air Intake Visit Reasons: 2mnth OK PER MD Intake Note: Follow up Parkinson's disease with dyskinesia and fluctuating manifestations, RLS, leg cramps and neuropathy and CRISTINA Fire Prevention Inspector Required: No Accompanied by: Self / Same As Patient Allergies No Known Allergies Allergy (Verified 05/28/25 14:54) Medication List - Last Reconciled 05/28/25 by Kusum Mercer MD alcohol swabs pad topical TID blood sugar diagnostic (FreeStyle Lite Strips) As directed brimonidine 0.2% 1 drp ophthalmic (eye) Q8H carbidopa-levodopa 25-100 mg 2 tabs PO QID carvedilol 12.5 mg PO BID cholecalciferol (vitamin D3) 25 mcg PO DAILY dapagliflozin propanediol (Farxiga) 10 mg PO DAILY diclofenac sodium 1% 2 grams topical BID dorzolamide-timolol 22.3-6.8 mg/mL 1 drp ophthalmic (eye) BID gabapentin 300 mg PO Q8H insulin glargine (Lantus Solostar U-100 Insulin) 50 units subcut QPM insulin lispro (Humalog KwikPen (U-100) Insulin) subcut lancets (FreeStyle Lancets) As directed lidocaine 5% 1 patch topical DAILY loratadine 10 mg PO DAILY PRN mecobalamin (vitamin B12) (B12 Active) 1,000 mcg PO DAILY pen needle, diabetic (BD Maite 2nd Gen Pen Needle) As directed pen needle, diabetic (BD Ultra-Fine Short Pen Needle) As directed ropinirole ER 6 mg PO QAM spironolactone 12.5 mg PO DAILY triamcinolone acetonide 0.1% appl topical trihexyphenidyl 2 mg PO BID valsartan 40 mg PO BEDTIME zinc gluconate 50 mg PO DAILY HPI Comments Details: 54y/o male with Parkinsons comes for follow up.He also has CRISTINA and is on CPAP . but his RLS is worse and he stopped using CPAP. He was seen by [facility] and is waiting for his oral device. His diabetes is better controlled but his kidney functions have worsened stage 3-4 . He is concerned about meds affecting his kidneys He is on carbidopa/levodopa 25/100 2tabs qid trihexyphenidyl 2mg bid ropinirole XR 6 mg qhs . He feels he is slower and his walking is worse. History from his last visit-He was diagnosed with parkinsonism in 2018 and is on sinemet.He feels he is slower and also the medication wears off early. when the med wear off he has trouble walking and has stiffness and pain. MICHEL was c/w carli decreased activity in Basal ganglia He denies a memory issues. He denies REM behavior disorder, vivid dreams, depression or anxiety. SPeech- is softer. He has night time drooling. He has right hand rest tremors, slow movements in all his extremities He has difficulty writing using utensils, showering , dressing etc. Gait is slow. no falls He denies constipation, dizziness, double vision ( lost vision in his left eye due to glaucoma) He reports burning tingling numbness in his feet at night when he is trying to sleep. when he walks its better. [facility] Medical History Neuropathy Obstructive sleep apnea hypopnea, moderate Parkinson's disease without dyskinesia, without mention of fluctuations Uveitic glaucoma Parkinson's disease without dyskinesia or fluctuating manifestations Hypersomnia Carpal tunnel syndrome of right wrist Obstructive sleep apnea Katie's disease Diabetes Hyperlipidemia HTN (hypertension) Sarcoidosis Surgical History No history of previous surgery Family History Mother Diabetes mellitus Father Heart failure Social History Alcohol intake: current Alcohol intake frequency: holidays/special occasions only Patient Tobacco Use Status: Never used Tobacco Current occupational status: employed Current occupation: Dealership Physical Exam Vital Signs: Last Vital Signs Pulse 70 05/28/25 14:54 BP 138/80 05/28/25 14:54 Pulse Ox 99 05/28/25 14:54 Oxygen Delivery Method Room Air 05/28/25 14:54 BMI result Body Mass Index 31.6 Const General: cooperative, healthy appearing and no acute distress Nutritional Appearance: overweight Orientation/consciousness: patient oriented x3 HEENT Head: Yes normal to inspection Neck Other: mild antecollis and restricted range of motion Neuro Other: Moderate decreased blink and facial expression slow tongue movements Voice- normal Right UE rest tremors intermittent Fine Finger movements - mild decreased carli R>L Alternating hand movements - normal Hand movements - normal Foot taps- normal No cog wheel rigidity gait - good stride, mild slowness, decreased arm swings r>L General: patient oriented x3 and no focal motor deficits Cranial nerves: Yes CN's II-XII intact bilaterally, Yes Bilaterally intact EOM present, Yes Normal facial strength present and Yes Midline tongue present Motor exam (neuro): 5/5 motor strength present throughout and Normal motor muscle tone present throughout Coordination: [id number] test normal Assessment & Plan Assessment & Plan (1) Parkinson's disease without dyskinesia, without mention of fluctuations: Code(s): G20.A1 - Parkinson's disease without dyskinesia, without mention of fluctuations Category: Medical Qualifiers: Fluctuating manifestations: with fluctuating manifestations Qualified Code(s): G20.A2 - Parkinson's disease without dyskinesia, with fluctuations (2) Restless legs syndrome (RLS): Code(s): G25.81 - Restless legs syndrome Category: Medical (3) Leg cramps, sleep related: Comment: continue ropinirole ER 6mg po in the AM and alpha lipoic acid 250mg po daily Code(s): G47.62 - Sleep related leg cramps Category: Medical (4) Obstructive sleep apnea: Comment: referred to sleep dentistry as patient can not tolerate cpap due to REM sleep disorder behavior Code(s): G47.33 - Obstructive sleep apnea (adult) (pediatric) Category: Medical (5) Neuropathy: Code(s): G62.9 - Polyneuropathy, unspecified Category: Medical Plan Parkinsons Disorder Sinemet 25/100 2 tabs qid, . Ropinirole XR 6 mg qhs Trihexyphenidyl 2mg bid MICHEL scan results reviewed, decreased activity in putamen. CRISTINA cpap not tolerated, (REM sleep behavior)- he is waiting for his dental device F/u with rheumatology, opthamology, nephrology and endocrine. Increase gabapentin 600mg qhs for foot pain. Refer to nephrology for second opinion Orders: Referrals Endocrinology Referral E11.9 - Type 2 diabetes mellitus without complications Nephrology Referral D86.9 - Sarcoidosis, unspecified, E11.9 - Type 2 diabetes mellitus without complications, N18.30 - Chronic kidney disease, stage 3 unspecified Coding Level of Care Code Est Pt Level 4 (50354) Diagnoses Parkinson's disease without dyskinesia, with fluctuating manifestations G20.A2 Fluctuating manifestations: with fluctuating manifestations Restless legs syndrome (RLS) G25.81 Leg cramps, sleep related G47.62 Obstructive sleep apnea G47.33 Neuropathy G62.9
--- OUTSIDE RECORDS SUMMARY | 2025-05-28 18:38 | XMS_ITS | Clinical Summary ---
Author Organization [facility] Address [address] [place] [address] Phone Care Team Providers Care Cosmetic Manager Name Role Phone Alva Ruiz Primary Care Provider [phone] Allergies Active Allergy Reactions Criticality Noted Date [...] insulin pen needles, disposable, 32 gauge x 5/32 Ndle Use to inject insulin 4X/D UD [...] 2018 ZOSTER VACCINES (1 of 2) 2018 INFLUENZA VACCINE (#1) 2025 4, 04/03/2012, 06/01/2011, Additional history exists COVID-19 VACCINE ( season) 2025 SCREENING FOR DIABETES 11/22/2026 11/23/2023 LIPID PANEL 12/06/2028 12/07/2023, 0611/2023, 08/25/2023, Additional history exists Adult Td,Tdap Booster 06/15/2029 06/15/2019, 008 RSV VACCINE (1 - 1-dose 75+ series) 12/03/2043 HEPATITIS A VACCINES Aged Out No long [...] topic Medical Devices Not on file [place] [address] [place] [address] [place] [address] [place] [address] [place] [address] [place] [address] [place] [place] [address] [employer] DIRECT Care Teams Cosmetic Manager Relationship Specialty Start Date End Date Alva Ruiz PA PCP - General Physician Black Leather Trimmer 01/25/24 Additional Source Comments The information contained in this document represents components of the legal health record. It is not the complete legal health record.[facility]
--- OUTSIDE RECORDS SUMMARY | 2025-05-28 18:38 | XMS_ITS | Encounter Summary ---
Author Organization [facility] Address [address] [place] [address] Phone Care Team Providers Care Wheel Alignment Mechanic Name Role Phone Alva Ruiz PA-C Primary Care Provider [phone] Encounter Details Date Type Department Care Team (Late st Contact Info) Description 05/22/2025 Documentation Only [facility] [address] [place] [address] [place] [phone] Social History Tobacco Use Types Packs/Day Years [...] Care Team (Late st Contact Info) Description 06/05/2025 1:00 PM EST Clinical Support [facility] [address] [place] [address] 07/11/2025 4:30 PM EST Office Visit [facility] [address] [place] [address] Carmen Oliver MD [address] [place] [address] [place] [address] documented as of this encounter Visit Diagnoses Not on filedocumented in this encounter Care Teams Wheel Alignment Mechanic Relationship Specialty Start Date End Date Alva Ruiz PA-C [facility] [place] [address] PCP - General Physician Hide Trimmer 02/16/22 documented as of this encounter
--- OUTSIDE RECORDS SUMMARY | 2025-05-28 18:38 | XMS_ITS | Encounter Summary ---
Author Organization [facility], Address [address] [place] [address] Phone Care Team Providers Care Mainframe Systems Programmer Name Role Phone Alva Ruiz PA-C Primary Care Provider [phone] Encounter Details Date Type Department Care Team (Late st Contact Info) Description 08/16/2024 Documentation Only [facility] [address] [place] [place] [address] [place] [address] Social History Tobacco Use Types Packs/Day Years Used Date Smoking Tobacco: Never Alcohol Use Standard Drinks/Week Comments No 0 (1 standard drink = 0.6 oz pur e alcohol) Sex and Gender Information Value Date Recorded Sex Assigned at Not on file Legal Sex Male 4:30 PM EST Gender Identity Not on file Sexual Orientation Not on file documented as of this encounter Functional Status * BP Answer Date of Assessment Author 150/90 08/16/2024 3:39 PM Alexsandra Padilla MD * BP Answer Date of Assessment Author 150/90 08/16/2024 3:39 PM Alexsandra Padilla MD documented as of this encounter Plan of Treatment Upcoming Encounters Date Type Department Care Team (Late Contact Info) Description 06/05/2025 1:00 PM EST Clinical Support [facility] [address] [place] [phone] 07/11/2025 4:30 PM EST Office Visit [facility], [address] [place] [phone] Carmen Oliver MD [address] [place] [phone] documented as of this encounter Visit Diagnoses Not on filedocumented in this encounter Care Teams Mainframe Systems Programmer Relationship Specialty Start Date End Date Alva Ruiz PA-C [address] [place] [address] PCP - General Physician Network Contract Manager 02/16/22 documented as of this encounter
--- OUTSIDE RECORDS SUMMARY | 2025-05-28 18:38 | XMS_ITS | Encounter Summary ---
Author Organization [facility] Address [address] [place] [address] Phone Care Team Providers Care Aviation Technical Systems Specialist Name Role Phone Alva Ruiz PA-C Primary Care Provider [phone] Encounter Details Date Type Department Care Team (Late st Contact Info) Description 01/30/2025 Documentation Only [facility] [address] [place] [phone] [place] [address] Social History Tobacco Use Types [...] * BP Answer Date of Assessment Author 16201/31/2025 3:22 PM Alexsandra Mendez MD * Pulse Answer Date of Assessment Author 85 01/31/2025 3:22 PM Alexsandra Mendez MD * BP Answer Date of Assessment Author 162/01/31/2025 3:22 PM Alexsandra Mendez MD documented as of this encounter Plan of Treatment Upcoming Encounters Date Type Department Care Team (Late st Contact Info) Description 06/05/2025 1:00 PM EST Clinical Support [facility] [address] [place] [address] 07/11/2025 4:30 PM EST Office Visit [facility] [place], [address] [place] [address] Carmen Oliver MD [address] [place] [place] [address] documented as of this encounter Visit Diagnoses Not on filedocumented in this encounter Care Teams Aviation Technical Systems Specialist Relationship Specialty Start Date End Date Alva Ruiz PA-C [address] [place] [address] PCP - General Physician Major Case Detective 02/16/22 documented as of this encounter
--- OUTSIDE RECORDS SUMMARY | 2025-05-28 18:38 | XMS_ITS | Encounter Summary ---
Author Organization [facility] Address [address] [place] [address] Phone Care Team Providers Care Case Reviewer Name Role Phone Alva Ruiz PA-C Primary Care Provider [phone] Encounter Details Date Type Department Care Team (Late st Contact Info) Description 08/10/2023 Documentation Only [facility] [address] [place] [address] [place] [phone] Social History Tobacco Use Types Packs/Day Years [...] Support [facility] [address] [place] [address] 07/11/2025 4:30 PM EST Office Visit [facility] [address] [place] [address] Carmen Oliver MD [address] [place] [address] [place] [address] documented as of this encounter Visit Diagnoses Not on filedocumented in this encounter Care Teams Case Reviewer Relationship Specialty Start Date End Date Alva Ruiz PA-C [facility] [place] [address] PCP - General Physician Laboratory Geneticist 02/16/22 documented as of this encounter
--- OUTSIDE RECORDS SUMMARY | 2025-05-28 18:38 | XMS_ITS | Encounter Summary ---
Author Organization [facility] Address [address] [place] [address] Phone Care Team Providers Care Quill Worker Name Role Phone Alva Ruiz PA-C Primary Care Provider [phone] Encounter Details Date Type Department Care Team (Late st Contact Info) Description 08/10/2023 Documentation Only [facility] [address] [place] [address] [place] [phone] Social History Tobacco Use Types Packs/Day Years [...] Support [facility] [address] [place] [address] 07/11/2025 4:30 PM EST Office Visit [facility] [address] [place] [address] Carmen Oliver MD [address] [place] [address] [place] [address] documented as of this encounter Visit Diagnoses Not on filedocumented in this encounter Care Teams Quill Worker Relationship Specialty Start Date End Date Alva Ruiz PA-C [employer] [place] [address] PCP - General Physician Syrup Maker 02/16/22 documented as of this encounter
--- OUTSIDE RECORDS SUMMARY | 2025-05-28 18:38 | XMS_ITS | Clinical Summary ---
Author Organization 175 [facility] Address [address] [place] [address] Phone Care Team Providers Care Hvac Technician Residential Name Role Phone Alva Ruiz Primary Care Provider [phone] Allergies Active Allergy Reactions Criticality Noted Date [...] TOPICALLY 2 (TWO) TIMES DAILY. 5 Active gabapentin (NEURONTIN) 300 mg capsule Take 1 capsule (300 mg total) by mouth every 8 (eight) hours. 5 Active Encounters Date Type Department Care Team Description 04/25/2025 3:15 PM EDT Office Visit Orthopedic Surgery - [address] [address] Guy Gomez, DPM Metatarsalgia of both feet (Primary Dx); Peripheral venous insufficiency; Diabetic mononeuropathy simplex ([facility] V24, [facility] V28); Dermatophytosis of nail; Corns and callosities; Pain in toe of left foot; Pain in toe of right foot; Type 2 diabetes mellitus with hyperglycemia, with long-term current use of insulin ([facility] V24, [facility] V28); Hammer toe of left foot; Acquired hammer toe of right foot from Last 3 Months Immunizations Immunization Administration Dates Next Due Moderna SARS-CoV-2 COVID-19, mRNA, LNP-S, preservative free 04/09/2022 Surgical History Surgery Date Site/Laterality Comments COLOSTOMY Medical History Medical History Date Comments Parkinson disease ([facility] V24[facility] V28) Diabetes mellitus ([facility] V24, [facility] V28) Hyperlipidemia Hypertension Glaucoma Sleep apnea Loss of vision Sarcoidosis Katie's disease ([facility] V24, [facility] V28) Vitamin D deficiency Cataracts, bilateral Anal fissure Pneumothorax CKD (chronic kidney disease), stage III ([facility] V24, [facility] V28) Pneumonia CHF (congestive heart failure) ([facility] V24, [facility] V28) NSTEMI (non-ST elevated myoc ardial infarction) ([facility] V24, [facility] V28) Nephrolithiasis Restless leg syndrome Cardiomyopathy ([facility] V24, [facility] V28) Obesity Covid-19 Social History Tobacco Use Types Packs/Day Years Used Date Smoking Tobacco: Never Smokeless Tobacco: Never Tobacco Cessation:Counseling Given: Not Answered Alcohol Use Standard Drinks/Week Comments Yes 0 (1 standard drink = 0.6 oz pur e alcohol) Interpersonal Safety Answer Date Record ed Physical Abuse Unrecognized value 12/05/2024 Verbal Abuse Unrecognized value 12/05/2024 Sex and Gender Information Value Date [...] - - Weight 96.2 kg (212 lb) 02/20/2025 1:29 PM EDT Height 177.8 cm (5' 10 ) 11/27/2024 12:00 PM EDT Body Mass Index 30.42 11/27/2024 12:00 PM EDT Plan of Treatment Upcoming Encounters Date Type Department Care Team (Late st Contact Info) Description 06/25/2025 2:30 PM EST Office Visit Orthopedic Surgery - [place] [address] [address] Guy Gomez, [place] [address] [phone] Health Maintenance Due Date Last Done Comments Diabetes: Annual Foot Exam 1978 Diabetes: Annual Retina Eye Exam 1978 Pneumococcal Vaccine: 50+ Years (2 of 2 - PCV) 01/18/2009 01/19/2008 RSV Immunization Adult Patients (1 - Risk 50-74 years 1-dose series) 2018 Social Influencers of Health Screening 06/06/2022 Depression Screening 07/04/2024 Hepatitis B Vaccines (3 of 3 - 19+ 3-dose series) 09/26/2024 08/01/2024, 06/25/2019 COVID-19 Vaccine (2024- season) 2025 04/09/2022, 08/24/2021, 07/17/2021, Additional history exists Influenza Vaccine (#1) 2025 , 08/25/2023, 06/23/2022, Additional history exists Diabetes: Annual GFR (Glomerular Filtration Rate) 04/23/2025 04/23/2024 Hypertension/CHF/CAD Annual BMP Blood Test 04/23/2025 04/23/2024 Diabetes: Blood Sugar Control Test (HGBA1C) 10/15/2025 04/16/2025, 01/09/2025, 01/09/2025, Additional history exists Diabetes: Annual Urine Albumin-Creatinine Ratio (uACR) 01/09/2026 01/09/2025, 10/19/2024, 08/25/2023, Additional history exists Colorectal Cancer Screening: Colonoscopy [...] 12/05/2024 2:07 PM EDT Colon cancer screening from Last 3 Months or Most Recently Relevant to Health Maintenance Results * COLONOSCOPY Anesthesia - MAC; [facility] ENDOSCOPY (12/05/2024 2:07 PM EDT) Anatomical Region [...] pathology results. Narrative 12/05/2024 2:[address] [facility] GI Patient Name: Laverne Torres Procedure Date: 12/05/2024 1:46 PM Date of : 1970 Age: 54 Gender: Male Note Status: Finalized Attending MD: Ansley Nguyen DO, [id number] Procedure Date No Time: 12/05/2024 Procedure: Colonoscopy [...] the physician, the nurse, the anesthesiologist, the dialysis tech and the photo optics technician in the pre-procedure area in the [...] retroflexion views. Procedure Code(s): --- Professional --- 02145, Colonoscopy, flexible; with removal of tumor(s), polyp(s), or other lesion(s) by snare technique Diagnosis Code(s): --- Professional --- D12.5, Benign neoplasm of sigmoid colon K64.9, Unspecified hemorrhoids Z12.11, Encounter for screening for malignant neoplasm of colon CPT copyright 2020 [employer]. All rights reserved. The codes documented in this report are preliminary and upon care manager cna review may be revised to meet current compliance requirements. ANSLEY Nguyen DO 12/05/2024 2:04:22 PM This report has been signed electronically.Ansley Nguyen DO Number of Addenda: 0 Note Initiated On: 12/05/2024 1:46 PM Scope Withdrawal Time: 0 hours 8 minutes 47 seconds Scope In: 1:52:03 PM Scope Out: 2:03:09 PM Endoscopy Department at [facility] - [address] [place] [id number] Procedure Note Ansley Nguyen DO - 12/05/2024 [facility] GI Patient Name: Laverne Torres Procedure Date: 12/05/2024 1:46 PM Date of : 1970 Age: 54 Gender: Male Note Status: Finalized Attending MD: Ansley Nguyen DO, [id number] Procedure Date No Time: 12/05/2024 Procedure: Colonoscopy [...] the physician, the nurse, the anesthesiologist, the dialysis tech and thetechnician in the pre-procedure area in [...] retroflexion views. Procedure Code(s): --- Professional --- 56604, Colonoscopy, flexible; with removal of tumor(s), polyp(s), or other lesion(s) by snare technique Diagnosis Code(s): --- Professional --- D12.5, Benign neoplasm of sigmoid colon K64.9, Unspecified hemorrhoids Z12.11, Encounter for screening for malignantneoplasm of colon CPT copyright 2020 [employer]. All rights reserved. The codes documented in this report are preliminary and upon care manager cna reviewmay be revised to meet current compliance requirements. ANSLEY Nguyen DO 12/05/2024 2:04:22 PM This report has been signed electronically.Ansley Nguyen DO Number of Addenda: 0 Note Initiated On: 12/05/2024 1:46 PM Scope Withdrawal Time: 0 hours 8 minutes 47 seconds Scope In: 1:52:03 PM Scope Out: 2:03:09 PM Endoscopy Department at [facility] - [address] [place] [phone] IMPRESSION: - Hemorrhoids found on perianal exam. [...] Nguyen DO GI~PROCEDURE ORDERABLES Final Re sult from Last 3 Months or Most Recently Relevant to Health Maintenance Insurance MEDICAID - [place] Care Teams Hvac Technician Residential Relationship Specialty Start Date End Date Alva Ruiz PA [address] [place] [address] PCP - General 08/30/23
--- OUTSIDE RECORDS SUMMARY | 2025-05-28 18:38 | XMS_ITS | Encounter Summary ---
Author Organization [facility] Address [address] [place] [address] Phone Care Team Providers Care Director Of Manufacturing Operations Name Role Phone Alva Ruiz PA-C Primary Care Provider [phone] Encounter Details Date Type Department Care Team (Late st Contact Info) Description 08/11/2023 Documentation Only [facility] [address] [place] [address] [place] [phone] Social History Tobacco Use Types Packs/Day Years [...] Support [facility] [address] [place] [address] 07/11/2025 4:30 PM EST Office Visit [facility] [address] [place] [address] Carmen Oliver MD [address] [place] [address] [place] [address] documented as of this encounter Visit Diagnoses Not on filedocumented in this encounter Care Teams Director Of Manufacturing Operations Relationship Specialty Start Date End Date Alva Ruiz PA-C [facility] [place] [address] PCP - General Physician Chemical Lab Technician 02/16/22 documented as of this encounter
--- OUTSIDE RECORDS SUMMARY | 2025-05-28 18:38 | XMS_ITS | Encounter Summary ---
Author Organization [facility] Address [address] [place] [address] Phone Care Team Providers Care Nurse Practitioner Manager Name Role Phone Alva Ruiz PA-C Primary Care Provider [phone] Encounter Details Date Type Department Care Team (Late st Contact Info) Description 08/25/2023 Documentation Only [facility] [address] [place] [address] [place] [phone] Social History Tobacco Use Types Packs/Day Years [...] [facility] [address] [place] [address] 07/11/2025 4:30 PM EST Office Visit [facility] [address] [place] [address] Carmen Oliver MD [address] [place] [address] [place] [address] documented as of this encounter Visit Diagnoses Not on filedocumented in this encounter Care Teams Nurse Practitioner Manager Relationship Specialty Start Date End Date Alva Ruiz PA-C [facility] [place] [address] PCP - General Physician Java J2Ee Technical Lead 02/16/22 documented as of this encounter
--- OUTSIDE RECORDS SUMMARY | 2025-05-28 18:38 | XMS_ITS | Encounter Summary ---
Author Organization [facility] Address [address] [place] [address] Phone Care Team Providers Care Social Service Director Name Role Phone Alva Ruiz PA-C Primary Care Provider [phone] Encounter Details Date Type Department Care Team (Late st Contact Info) Description 08/10/2023 Documentation Only [facility] [address] [place] [address] [place] [phone] Social History Tobacco Use Types Packs/Day Years [...] Support [facility] [address] [place] [address] 07/11/2025 4:30 PM EST Office Visit [facility] [address] [place] [address] Carmen Oliver MD [address] [place] [address] [place] [address] documented as of this encounter Visit Diagnoses Not on filedocumented in this encounter Care Teams Social Service Director Relationship Specialty Start Date End Date Alva Ruiz PA-C [facility] [place] [address] PCP - General Physician Barrel Charrer 02/16/22 documented as of this encounter
--- OUTSIDE RECORDS SUMMARY | 2025-05-28 18:38 | XMS_ITS | Encounter Summary ---
Author Organization [facility] [place] Address [address] [place] [address] Phone Care Team Providers Care Brake Linings Coater Name Role Phone Alva Ruiz PA-C Primary Care Provider [phone] Encounter Details Date Type Department Care Team (Late st Contact Info) Description 08/16/2024 Documentation Only [facility] [address] [place] [phone] [place] [address] Social History Tobacco Use Types [...] Support [facility] [address] [place] [phone] 07/11/2025 4:30 PM EST Office Visit [facility] [place], [address] [place] [phone] Carmen Oliver MD [address] [place] [phone] documented as of this encounter Visit Diagnoses Not on filedocumented in this encounter Care Teams Brake Linings Coater Relationship Specialty Start Date End Date Alva Ruiz PA-C [address] [place] [address] PCP - General Physician Dry House Tender 02/16/22 documented as of this encounter
--- OUTSIDE RECORDS SUMMARY | 2025-05-28 18:38 | XMS_ITS | Encounter Summary ---
Author Organization [facility] Address [address] [place] [address] Phone Care Team Providers Care Media Executive Name Role Phone Alva Ruiz PA-C Primary Care Provider [phone] Encounter Details Date Type Department Care Team (Late st Contact Info) Description 08/11/2023 Documentation Only [facility] [address] [place] [address] [place] [phone] Social History Tobacco Use Types Packs/Day Years [...] Support [facility] [address] [place] [address] 07/11/2025 4:30 PM EST Office Visit [facility] [address] [place] [address] Carmen Oliver MD [address] [place] [address] [place] [address] documented as of this encounter Visit Diagnoses Not on filedocumented in this encounter Care Teams Media Executive Relationship Specialty Start Date End Date Alva Ruzi PA-C [facility] [place] [address] PCP - General Physician Incising Machine Operator 02/16/22 documented as of this encounter
--- OUTSIDE RECORDS SUMMARY | 2025-05-28 18:38 | XMS_ITS | Clinical Summary ---
Author Organization [facility], Address [address] [place] [address] [place] [address] Phone Care Team Providers Care Behavioral Health Care Manager Name Role Phone Alva Ruiz PA-C Primary Care Provider Allergies Active Allergy Reactions Criticality Noted Date Comments Sitagliptin 02/06/2020 c/o: myalgia has improved after stopping medication Medications cholecalciferol (VITAMIN D-3) 25 MCG (1000 UT) capsule 9 Active Multiple Vitamins-Mineral s (MULTIVITAMIN ADULT PO) Take 1 capsule by mouth 1 (one) time each day Active brimonidine (ALPHAGAN) 0.2 % ophthalmic solution Administer 1 drop into both eyes in the morning and 1 drop in the evening. 9 Active carbidopa-levodo pa (SINEMET) 25-100 MG per tablet Take 2 tablets by mouth in the morning and 2 tablets in the evening and 2 tablets before bedtime. 0 Active carvedilol (COREG) 12.5 MG tablet Take 12.5 mg by mouth in the morning and 12.5 mg in the evening. 9 Active dorzolamide-nickie lol (COSOPT) 22.3-6.8 MG/ML ophthalmic solution Administer 1 drop into both eyes at bed time 9 Active gabapentin (NEURONTIN) 100 MG capsule Take 100 mg by mouth in the morning and 100 mg in the evening and 100 mg before bedtime. 9 Active Melatonin 5 MG tablet Take 5 mg by mouth at bed time 9 Active predniSONE (DELTASONE) 10 MG tablet 9 Active trihexyphenidyl (ARTANE) 2 MG tablet Take 2 mg by mouth in the morning and 2 mg in the evening. 9 Active insulin glargine (LANTUS) 100 UNIT/ML injection Inject 25 Units under the skin every night 0 Active aspirin (ST HUGO) 81 MG EC tablet Take 81 mg by mouth 1 (one) time each day Active sulfamethoxazole -trimethoprim 800-160 MG per tablet Take 1 tablet by mouth 3 (three) times a week On Tuesday, Tuesday and Tuesday Active CALCIUM-VITAMIN D PO Take 1 tablet by mouth in the morning and 1 tablet in the evening. Active docusate sodium (COLACE) 100 MG capsule Take 100 mg by mouth in the morning and 100 mg in the evening. Active folic acid (FOLVITE) 1 MG tablet Take 1 mg by mouth 1 (one) time each day Active Insulin Lispro 100 UNIT/ML solution Inject 2-10 units three times a day before meals Active rOPINIRole (REQUIP) 2 MG tablet Take 2 mg by mouth 1 (one) time each day Active rosuvastatin (CRESTOR) 20 MG tablet Take 20 mg by mouth 1 (one) time each day Active sacubitril-valsa rtan (Entresto) 24-26 MG per tablet Take 1 tablet by mouth in the morning and 1 tablet in the evening. Active senna (SENOKOT) 8.6 MG tablet Take 1 tablet by mouth 1 (one) time each day Active chlorthalidone 25 MG tablet Take 1 tablet (25 mg total) by mouth 1 (one) time each day 30 tablet 11 4 Active Semaglutide,0.25 or 0.5MG/DOS, (Ozempic, 0.25 or 0.5 MG/DOSE,) 2 MG/3ML solution pen-injector Inject 0.25 mg under the skin per week Dx code e11.21 3 mL 3 4 Active Dapagliflozin Propanediol 10 MG tabletIndication s:Stage 3b chronic kidney disease (HCC),Proteinuri a, not otherwise specified,Type 2 diabetes mellitus with diabetic chronic kidney disease (HCC),Sarcoidosi s of other site,Hypertensio n Take 10 mg by mouth 1 (one) time each day in the morning 30 tablet 1 5 Active Active Problems Problem Noted Date Diagnosed Date Stage 3a chronic kidney disease 08/15/2023 Congestive heart failure 08/11/2023 Overview (08/11/2023): with reduced ejection fraction Dyslipidemia 08/11/2023 Nephrolithiasis 08/11/2023 Proteinuria 08/11/2023 Type 2 diabetes mellitus 08/11/2023 Overview (08/11/2023): with diabetic neuropathy Restless leg syndrome 08/11/2023 Right flank pain 08/11/2023 Sarcoidosis 08/08/2019 Hypertension 08/08/2019 Encounters Date Type Department Care Team Description 05/22/2025 Documentation Only [facility] [address] [place] [address] 05/02/2025 2:30 PM EDT Office Visit [facility] [place] [address] [place] [address] Carmen Oliver MD Chronic kidney disease, stage 4 (severe) (HCC) (Primary Dx); Proteinuria, not otherwise specified; Type 2 diabetes mellitus with diabetic chronic kidney disease, not otherwise specified (HCC); Hypertension; Sarcoidosis of other site 05/01/2025 1:30 PM EDT Telemedicine [facility] [place] [address] [place] [address] 02/27/2025 1:00 PM EDT Clinical Support [facility] [place] [address] [place] [address] Daniela Ricketts [facility] Type 2 diabetes mellitus with diabetic chronic kidney disease (HCC) (Primary Dx) 02/26/2025 Documentation Only [facility] [place] [address] [place] [address] from Last 3 Months Immunizations Immunization Administration Dates Next Due Hepatitis B 06/25/2019 Influenza Whole 04/16/2014, 2,06/01/2011,04/28,04/25/2007 Influenza, Quadrivalent, Pre servative Free 08/25/2023,06/23/2022,06/15/2019 Influenza, Recombinant, PF 04/10/2024 Influenza, Unspecified 05/12/2018,2015,05/06/2015,04/25,03/20/2009,04/19/2008 Moderna SARS-COV-2 04/09/2022,09/17/2020 Pfizer SARS-COV-2 07/17/2021 Pneumococcal Polysaccharide 01/19/2008 SARS-CoV-2, Unspecified 04/09/2022 Shingrix 08/01/2024,10/27/2022 Td, Unspecified 01/08/2019 Tdap 06/15/2019,08/09/2007 Family History Medical History Relation Comments Coronary artery disease Brother Heart disease Brother Coronary artery disease Father Heart failure Father Sarcoidosis Mother Relation Status Comments Brother Father Mother Social History Tobacco Use Types Packs/Day Years [...] Sign Reading Time Taken Comments Blood Pressure 162/91 01/31/2025 3:22 PM EDT Pulse 85 01/31/2025 3:22 PM EDT Temperature - - Respiratory Rate - - Oxygen Saturation - - Inhaled Oxygen Concentration - - Weight 94.3 kg (208 lb) 11/01/2018 12:00 PM EDT Height 177.8 cm (5' 10 ) 11/01/2018 12:00 PM EDT Body Mass Index 29.84 11/01/2018 12:00 PM EDT Plan of Treatment Upcoming Encounters Date Type Department Care Team (Late st Contact Info) Description 06/05/2025 1:00 PM EST Clinical Support [facility] [address] [place], [place] [address] 07/11/2025 4:30 PM EST Office Visit [facility] [address] [place] [address] Carmen Oliver MD [address] [place] [address] [place] [address] Health Maintenance Due Date Last Done Comments Hepatitis B Vaccine (1 of 3 - 19+ 3-dose series) 12/03/1987 06/25/2019 Pneumococcal Vaccine: 50+ Ye ars (2 of 2 - PCV) 01/18/2009 01/19/2008 Colorectal Cancer Screening: Annual FOBT 2017 Colorectal Cancer Screening: Colonoscopy 2017 Colorectal Cancer Screening: Sigmoidoscopy 2017 Diabetes: Ophthalmology Exam 08/08/201903/2018, 08/04/2017, 05/20/2016 Diabetes: Pedal Pulse Checked 08/08/2019 Diabetes: Sensory Foot Exam 08/08/2019 Diabetes: Visual Foot Exam 08/08/2019 Influenza Vaccine (#1) 2025 4, 08/25/2023, 06/23/2022, Additional history exists Diabetes: Hemoglobin A1C 07/31/2025 025, 04/16/2025, 01/09/2025, Additional history exists Pneumococcal Vaccine: Peds ( 0 to 5 Years) and At-Risk Patients (6 to 49 Years) Discontinued 01/19/2008 Procedures Procedure Name Priority Date/Time Associated Diagnosis Comments URINE ALBUMIN / CREATININE RATIO Routine 05/01/2025 12:09 PM EDT Type 2 diabetes mellitus with diabetic chronic kidney disease (HCC) Stage 3b chronic kidney disease (HCC) Proteinuria, not otherwise specified Sarcoidosis of other site Hypertension URINE ALBUMIN / CREATININE RATIO Routine 04/30/2025 12:26 PM EDT Type 2 diabetes mellitus with diabetic chronic kidney disease (HCC) RENAL FUNCTION PANEL Routine 04/30/2025 12:26 PM EDT Type 2 diabetes mellitus with diabetic chronic kidney disease (HCC) CBC Routine 04/30/2025 12:26 PM EDT Type 2 diabetes mellitus with diabetic chronic kidney disease (HCC) HEMOGLOBIN A1C Routine 04/30/2025 12:26 PM EDT Type 2 diabetes mellitus with diabetic chronic kidney disease (HCC) from Last 3 Months Results * (ABNORMAL) Urine Albumin / Creatinine Ratio (05/01/2025 12:09 PM EDT) Creatinine, Ur 84.1 Not Estab. mg/dL [facility] Albumin, Urine 1,562.0 Not Estab. ug/mL [facility] Comment: Results confirmed on dilution. Albumin/Creatin ine Ratio 1,857(H) 0 - 29 mg/g creat [facility] Comment: Normal: 0 - 29 Moderately increased: 30 - 300 Severely increased: >300 Urine Urine specimen obtained by clean catch procedure / Unknown 05/01/2025 12:09 PM EDT 05/01/2025 us Carmen Oliver MD LAB URINE ORDERABLES Final Res ult [facility] [address] [place] [address] * (ABNORMAL) CBC (04/30/2025 12:26 PM EDT) Pathologist [facility] WBC 7.4 3.4 - 10.8 x10E3/uL [facility] RBC 4.46 4.14 - 5.80 x10E6/uL [facility] Hemoglobin 12.5(L) 13.0 - 17.7 g/dL [facility] Hematocrit 38.2 37.5 - 51.0 % [facility] MCV 86 79 - 97 fL [facility] MCH 28.0 26.6 - 33.0 pg [facility] MCHC 32.7 31.5 - 35.7 g/dL [facility] RDW 14.6 11.6 - 15.4 % [facility] Platelets 195 150 - 450 x10E3/uL [facility] Blood Venous blood / Unknown 04/30/2025 12:26 PM EDT 04/30/2025 Titus Melendez MD LAB BLOOD ORDERABLES Final Re sult Performing Organization Address City/[facility]/ZIP Co de Phone Number [facility] [address] [place] [address] * (ABNORMAL) Hemoglobin A1c (04/30/2025 12:26 PM EDT) Hemoglobin A1C 7.3(H) 4.8 - 5.6 % [facility] Comment: Prediabetes: 5.7 - 6.4 Diabetes: >6.4 Glycemic control for adults with diabetes: <7.0 Blood Venous blood / Unknown 04/30/2025 12:26 PM EDT 04/30/2025 Titus Melendez MD LAB BLOOD ORDERABLES Final Re sult Performing Organization Address City/[facility]/[place] Co de Phone Number [facility] [address] [place] [address] * (ABNORMAL) Renal Function Panel (04/30/2025 12:26 PM EDT) Glucose 142(H) 70 - 99 mg/dL [facility] BUN 38(H) 6 - 24 mg/dL [facility] Creatinine 2.80(H) 0.76 - 1.27 mg/dL [facility] eGFR CKD-EPI CR 2020 26(L) >59 mL/min/1.7 3 [facility] BUN/Creatinine Ratio 14 9 - 20 [facility] Sodium 139 134 - 144 mmol/L [facility] Potassium 5.0 3.5 - 5.2 mmol/L [facility] Chloride 106 96 - 106 mmol/L [facility] Bicarbonate (CO2) 19(L) 20 - 29 mmol/L [facility] Calcium 8.9 8.7 - 10.2 mg/dL [facility] Albumin 4.1 3.8 - 4.9 g/dL [facility] Phosphorus 4.1 2.8 - 4.1 mg/dL [facility] Blood Venous blood / Unknown 04/30/2025 12:26 PM EDT 04/30/2025 us Titus Melendez MD LAB BLOOD ORDERABLES Final Re sult [facility] [address] [place] [address] from Last 3 Months Insurance Medicaid [place] Care Teams Behavioral Health Care Manager Relationship Specialty Start Date End Date Alva Ruiz PA-C [address] [place] [address] PCP - General Physician Marine Operations Coordinator 02/16/22
--- OUTSIDE RECORDS SUMMARY | 2025-05-28 18:38 | XMS_ITS | Clinical Summary ---
Author Organization [employer] Address [address] [facility] [place] [address] Care Team Providers Care Deep Sea Diver Name Role Phone Unavailable Primary Care Provider Unavailabl e Social History Tobacco Use Types Packs/Day Years [...] FIT DNA/Cologuard 1968 FIT 1968 FOBT 1968 Lipid Panel 1968 SDOH Screening 1968 Sigmoidoscopy 1968 Disability Screening 1968 Alcohol/Substance Use Screening 1980 Tobacco Screening 1980 Hepatitis C Screening 1986 Pneumococcal Vaccine: 50+ Years (2 of 2 - PCV) 2018 01/19/2008 RSV Patients and Patients Aged 60 years or older (1 - Risk 50-74 years 1-dose series) 2018 Hepatitis B Vaccines (3 of 3 - 19+ 3-dose series) 09/26/2024 08/01/2024, 06/25/2019 COVID-19 Vaccine (4 - 2024- season) 2025 04/09/2022, 07/17/2021, 09/17/2020 Influenza Vaccine (#1) 2025 , 08/25/2023, 06/23/2022, Additional history exists DTaP/Tdap/Td Vaccines (4 - Td or Tdap) 06/15/2029 06/15/2019, 01/08/2019, 08/09/2007 HIV Screening Completed 06/06/2019 Zoster Vaccines Completed 08/01/2024, 10/27/2022 HIB Vaccines [...]
--- OUTSIDE RECORDS SUMMARY | 2025-05-28 18:38 | XMS_ITS | Encounter Summary ---
Author Organization [facility] Address [address] [place] [address] Phone Care Team Providers Care Press Helper Name Role Phone Alva Ruiz PA-C Primary Care Provider [phone] [phone] Encounter Details Date Type Department Care Team (Late st Contact Info) Description 01/30/2025 Documentation Only [facility] [address] [place] [address] [place] [address] Social History Tobacco Use Types [...] Support [facility] [address] [place] [address] 07/11/2025 4:30 PM EST Office Visit [facility] [place], [address] [address] Carmen Oliver MD [address] [place] [address] documented as of this encounter Visit Diagnoses Not on filedocumented in this encounter Care Teams Press Helper Relationship Specialty Start Date End Date Alva Ruiz PA-C [address] [place] [address] PCP - General Physician Airport Baggage Screener 02/16/22 documented as of this encounter
--- OUTSIDE RECORDS SUMMARY | 2025-05-28 18:38 | XMS_ITS | Encounter Summary ---
Author Organization [facility] Address [address] [place] [address] Phone Care Team Providers Care Certified First Assistant Name Role Phone Alva Ruiz PA-C Primary Care Provider [phone] Encounter Details Date Type Department Care Team (Late st Contact Info) Description 08/15/2023 Documentation Only [facility] [address] [place] [address] [place] [address] Social History Tobacco Use Types Packs/Day Years [...] Support [facility] [address] [place] [address] 07/11/2025 4:30 PM EST Office Visit [facility] [address] [place] [address] Carmen Oliver MD [address] [place] [address] [place] [address] documented as of this encounter Visit Diagnoses Not on filedocumented in this encounter Care Teams Certified First Assistant Relationship Specialty Start Date End Date Alva Ruiz PA-C [facility] [place] [address] PCP - General Physician Barrel Assembler 02/16/22 documented as of this encounter
--- OUTSIDE RECORDS SUMMARY | 2025-05-28 18:38 | XMS_ITS | Encounter Summary ---
Author Organization [facility] Address [address] [place] [address] Phone Care Team Providers Care Lumber Sorter Machine Name Role Phone Alva Ruiz PA-C Primary Care Provider [phone] [phone] Encounter Details Date Type Department Care Team (Late st Contact Info) Description 01/30/2025 Documentation Only [facility] [address] [place] [address] [place] [address] Social History Tobacco Use Types [...] Support [facility] [address] [place] [address] 07/11/2025 4:30 PM EST Office Visit [facility] [place], [address] [address] Carmen Oliver MD [address] [place] [address] documented as of this encounter Visit Diagnoses Not on filedocumented in this encounter Care Teams Lumber Sorter Machine Relationship Specialty Start Date End Date Alva Ruiz PA-C [address] [place] [address] PCP - General Physician Glass Blower 02/16/22 documented as of this encounter
--- OUTSIDE RECORDS SUMMARY | 2025-05-28 18:38 | XMS_ITS | Encounter Summary ---
Author Organization [facility], Address [address] [place] [address] Phone Care Team Providers Care Railroad Track Mechanic Name Role Phone Alva Ruiz PA-C Primary Care Provider [phone] Encounter Details Date Type Department Care Team (Late st Contact Info) Description 08/16/2024 Documentation Only [facility] [address] [place] [address] [place] [address] Social History Tobacco Use Types [...] Support [facility] [address] [place] [address] 07/11/2025 4:30 PM EST Office Visit [facility], [address] [place] [place] [address] Carmen Oliver MD [address] [place] [place] [address] documented as of this encounter Visit Diagnoses Not on filedocumented in this encounter Care Teams Railroad Track Mechanic Relationship Specialty Start Date End Date Alva Ruiz PA-C [address] [place] [address] PCP - General Physician Director Workers Compensation 02/16/22 documented as of this encounter
--- OUTSIDE RECORDS SUMMARY | 2025-05-28 18:39 | XMS_ITS | Encounter Summary ---
Author Organization [facility] Address [address] [place] [address] Phone Care Team Providers Care Human Geography Instructor Name Role Phone Alva Ruiz PA-C Primary Care Provider [phone] Encounter Details Date Type Department Care Team (Late st Contact Info) Description 10/17/2023 Documentation Only [facility] [address] [place] [address] [place] [address] Social History Tobacco Use Types Packs/Day Years [...] Support [facility] [address] [place] [address] 07/11/2025 4:30 PM EST Office Visit [facility] [address] [place] [address] Carmen Oliver MD [address] [place] [address] [place] [address] documented as of this encounter Visit Diagnoses Not on filedocumented in this encounter Care Teams Human Geography Instructor Relationship Specialty Start Date End Date Alva Ruiz PA-C [facility] [place] [address] PCP - General Physician Filtering Machine Tender 02/16/22 documented as of this encounter
--- OUTSIDE RECORDS SUMMARY | 2025-05-28 18:39 | XMS_ITS | Encounter Summary ---
Author Organization [facility] Address [address] [place] [address] Phone Care Team Providers Care Auto Electrical Technician Name Role Phone Alva Ruiz PA-C Primary Care Provider [phone] Encounter Details Date Type Department Care Team (Late st Contact Info) Description 12/27/2024 Documentation Only [facility] [address] [place] [address] [place] [phone] Social History Tobacco Use Types Packs/Day Years [...] Support [facility] [address] [place] [address] 07/11/2025 4:30 PM EST Office Visit [facility] [address] [place] [address] Carmen Oliver MD [address] [place] [address] [place] [address] documented as of this encounter Visit Diagnoses Not on filedocumented in this encounter Care Teams Auto Electrical Technician Relationship Specialty Start Date End Date Alva Ruiz PA-C [facility] [place] [address] PCP - General Physician Scrap Carrier 02/16/22 documented as of this encounter
--- OUTSIDE RECORDS SUMMARY | 2025-05-28 18:39 | XMS_ITS | Encounter Summary ---
Author Organization [facility], Address [address] [place] [address] Phone Care Team Providers Care Central Sterile Tech Name Role Phone Alva Ruiz PA-C Primary Care Provider [phone] Encounter Details Date Type Department Care Team (Late st Contact Info) Description 08/16/2024 Documentation Only [facility] [address] [place] [address] [place] [address] Social History Tobacco Use Types [...] Support [facility] [address] [place] [address] 07/11/2025 4:30 PM EST Office Visit [facility] [place], [address] [place] [address] Carmen Oliver MD [address] [place] [address] documented as of this encounter Visit Diagnoses Not on filedocumented in this encounter Care Teams Central Sterile Tech Relationship Specialty Start Date End Date Alva Ruiz PA-C [address] [place] [address] PCP - General Physician Greens Keeper 02/16/22 documented as of this encounter
--- OUTSIDE RECORDS SUMMARY | 2025-05-28 18:39 | XMS_ITS | Encounter Summary ---
Author Organization [facility] Address [address] [place] [address] Phone Care Team Providers Care Cloth Shrinking Supervisor Name Role Phone Alva Ruiz PA-C Primary Care Provider [phone] Encounter Details Date Type Department Care Team (Late st Contact Info) Description 11/10/2023 Documentation Only [facility] [address] [place] [address] [place] [address] Social History Tobacco Use Types Packs/Day Years [...] Support [facility] [address] [place] [place] [address] 07/11/2025 4:30 PM EST Office Visit [facility] [address] [place] [address] Carmen Oliver MD [address] [place] [address] [place] [address] documented as of this encounter Visit Diagnoses Not on filedocumented in this encounter Care Teams Cloth Shrinking Supervisor Relationship Specialty Start Date End Date Alva Ruiz PA-C [facility] [place] [address] PCP - General Physician Restaurant Line Cook 02/16/22 documented as of this encounter
--- OUTSIDE RECORDS SUMMARY | 2025-05-28 18:39 | XMS_ITS | Encounter Summary ---
Author Organization [facility] Address [address] [place] [address] Phone Care Team Providers Care Market Intelligence Consultant Name Role Phone Alva Ruiz PA-C Primary Care Provider [phone] Encounter Details Date Type Department Care Team (Late st Contact Info) Description 10/24/2024 Documentation Only [facility] [address] [place] [address] [place] [address] Social History Tobacco Use Types [...] * BP Answer Date of Assessment Author 14710/25/2024 4:25 PM Alexsandra Mendez MD * Pulse Answer Date of Assessment Author 96 10/25/2024 4:25 PM Alexsandra Mendez MD * BP Answer Date of Assessment Author 147/90 10/25/2024 4:25 PM Alexsandra Mendez MD documented as of this encounter Plan of Treatment Upcoming Encounters Date Type Department Care Team (Late st Contact Info) Description 06/05/2025 1:00 PM EST Clinical Support [facility] Of [address] [place] [address] 07/11/2025 4:30 PM EST Office Visit [facility] [place], [address] [place] [address] Carmen Oliver MD [address] [place] [place] [address] documented as of this encounter Visit Diagnoses Not on filedocumented in this encounter Care Teams Market Intelligence Consultant Relationship Specialty Start Date End Date Alva Ruiz PA-C [address] [place] [address] PCP - General Physician Artist Relationship Manager 02/16/22 documented as of this encounter
--- OUTSIDE RECORDS SUMMARY | 2025-05-28 18:39 | XMS_ITS | Encounter Summary ---
Author Organization [facility], Address [address] [place] [address] Phone Care Team Providers Care Administration Clerk Name Role Phone Alva Ruiz PA-C Primary Care Provider + [phone] Encounter Details Date Type Department Care Team (Late st Contact Info) Description 06/08/2024 Documentation Only [facility], [address] [place] [phone] Aliza Johnson Social History Tobacco Use Types Packs/Day Years Used Date Smoking Tobacco: Never Alcohol Use Standard Drinks/Week Comments No 0 (1 standard drink = 0.6 oz pur e alcohol) Sex and Gender Information Value Date Recorded Sex Assigned at Not on file Legal Sex Male 4:30 PM EST Gender Identity Not on file Sexual Orientation Not on file documented as of this encounter Progress Notes * Aliza Johnson - 06/08/2024 1:25 PM EST [facility] Luiz Torres is a 53-YO male here today for diabetes education/management. This is the patient???s first visit with the [facility]. TODAY: Luiz Torres came in to discuss starting a new medication for his diabetes. He is currently treated with Lantus 50 units and Humalog 14-16 units three times daily before meals. He reported that he stopped Farxiga due to a rash that developed on his feet. RL stated that he has been ???slacking?? on his insulin and will forget to take 1-2 doses/day. The patient did not bring in his glucometer today, although states that he checks his blood sugar twice daily. He reports that his morningaverages are around 135-140???s mg/dL and they increase to 250???s mg/dL after eating. He has been tolerating his Lantus and Humalog well though is concerned about his high readings and is interestedin starting a new medication for this. He reports that he has been having a difficult time with hisParkinson???s lately. He reports that he does not feel good throughout the day and it is difficult for him to sleep at night. PERTINENT PMH: Type 2 DM (A1c 9% 02/27/2024) CKD Stage G3b A3 (eGFR 42 mL/min 03/09/2024) Hypertension Nephrolithiasis Congestive heart failure Dyslipidemia Sarcoidosis Parkinson???s DIABETES MEDICATIONS: Insulin glargine (Lantus) 100 unit/mL injection: Inject 50 Units under the skin every night Insulin Lispro (Humalog) 100 unit/mL solution: Inject 14-16 units three times a day before meals Dapagliflozin Propanediol (Farxiga) 10 mg tablet: Take 1 tablet by mouth daily - patient reported that this medication was stopped due to a rash developing on his feet Other Medications: Aspirin 81 mg EC tablet: Take 1 tablet by mouth daily (atherosclerotic cardiovascular disease) Carbidopa-levodopa (Sinemet) 25-100 mg tablet: take 2 tablets by mouth three times a day (Parkinson???s) Carvedilol (Coreg) 25 mg tablet: Take 1 tablet by mouth twice a day (hypertension) Vitamin D-3 25 mcg (1000 UT) capsule: take 1 capsule by mouth daily (supplement) Dorzolamide-timolol (Cosopt) 2-0.5% ophthalmic solution: Administer 1 drop into both eyes at bedtime (intraocular pressure) Gabapentin (Neurontin) 600 mg capsule: Take 1 capsule by mouth daily (fibromyalgia) - patient reports taking as needed Loratadine 10 mg tablet: take 1 tablet by mouth daily (allergies) Ropinirole (Requip) ER 6 mg tablet: Take 1 tablet by mouth daily (Parkinson???s) Rosuvastatin (Crestor) 20 mg tablet: Take 1 tablet by mouth daily (hyperlipidemia) Trihexyphenidyl 2 mg tablet: Take 1 tablet by mouth twice daily (Parkinson???s) Valsartan 40 mg tablet: take 1 tablet by mouth daily at bedtime (hypertension) Triamcinolone 0.1% cream: apply topically to feet daily (rash) SELF-MONITORING OF BLOOD GLUCOSE (SMBG): --Pt reports checking BG 2 x/day --Patient did not bring in his glucometer but states that his morning blood sugar is around 135-140???s mg/dL but it will increase to 250 mg/dL if he eats before. HYPOGLYCEMIA: --Denies symptoms of hypoglycemia since last visit --Recognizes symptoms of hypoglycemia and reports treatment with snacks DIET: B: eggs, toast, [place] omelet from a diner L: sometimes skips, subway footlong with turkey and silvestre and will eat half S: fish, vegetables, soup, chicken Snacks: grapes, tuna fish sandwich Beverages: water, lemonade - low sugar, sammy tea with honey EXERCISE: --Does not typically exercise because it is hard for him with his Parkinson???s VITALS: BP 120/82 mmHg (right arm, sitting, manual) Weight 219.8 lbs. PERTINENT LABS: (03/09/2024) A1c 9% 02/27/2024 Glucose 178 mg/dL SCr 1.86 mg/dL eGFR 42 mL/min K 4.4 mmol/L MA/Cr 1,606 mg/g ratio CrCl 51 mL/min (01/31/2024 - height 5???8.5?? , weight 216 lb) ASSESSMENT: Diabetes, type 2: --Goals: According to the 2024 ADA Standards of Care in Diabetes: A1c <7%, FBG 80-130mg/dL, PPBG<180mg/dL --Uncontrolled, with last A1C of 9% on 02/27/2024; currently treated with Lantus 50 units injected subcutaneously nightly and insulin lispro 14-16 units three times daily before meals. The patient reported stopping Farxiga due to a rash that developed on his feet. The 2024 ADA guidelines recommend using an SGLT-2 inhibitor in patients with CKD to help reduce progression. An option for future visits after the rash is healed could be to change Farxiga to Jardiance 10 mg daily. --According to the 2023 ADA guidelines, patients with diabetes and CKD with an A1c not at goal of <7% who do not tolerate an SGLT-2 inhibitor should consider adding a GLP-RA for cardiovascular benefit. This patient had an A1c of 9% on 02/27/2024 and had to discontinue Farxiga due to an adverse reaction. Will add Ozempic 0.25 mg once weekly x 4 weeks then increase to 0.5 mg once weekly thereafter. Counseled the patient that he may experience GI upset. Ozempic 0.25 mg can also increase the hypoglycemia effects of insulin. Will decrease Lantus to 45 units subcutaneously daily. Counseled the patient that if his BS falls below 100 mg/dL, he can skip his dose of Humalog. The Patient denied personal or family history of medullary thyroid cancer or multiple endocrine neoplasia type 2 and pancreatitis. --SMBG - checks blood sugar 2 times daily with regular Freestyle meter. Reviewed symptoms & treatment of hypoglycemia. Discussed the importance of checking BG with symptoms before treatment and not treating if BG is not actually low. Counseled on the rule of 15: take 15 grams of fast-acting carbohydrates such as 3-4 pieces of hard candy or 1 tablespoon of jelly, then wait 15 minutes and checkBG again. Gave the patient a handout with information on hypoglycemia and how to treat it. Discussed switching his glucometer to Freestyle Michael to make it easier for him to check his blood sugar. Patient stated that he is worried about it beeping throughout the night and was counseled that the settings can be adjusted so that it does not constantly alert him. The patient did not want to change his glucometer now but was willing to discuss it more in future visits. -Encouraged the patient to do daily foot exams to inspect his feet and to see an staff research scientist yearly. --Assessment/Plan: Continue Humalog 14-16 units three times daily before meals. However, if blood sugar is below 100 mg/dL can skip Humalog dose. Decrease Lantus to 45 units daily. Start Ozempic 0.25mg once weekly for 4 weeks, then increase to 0.5 mg weekly. Parkinson???s Disease: --The patient reported that he has been having a difficult time with his Parkinson???s and has beenmore tired throughout the day. An adverse effect of Ropinirole is that it causes drowsiness and fatigue. Discussed taking this at night instead of the morning to help with these symptoms. If the patient does not notice a difference, can continue taking Ropinirole ER 6 mg tablet in the morning. PLAN: --Continue Humalog 14-16 units injected subcutaneously three times daily before meals. If blood sugar falls below 100 mg/dL can skip Humalog dose. --Decrease dose of Lantus to 45 units injected subcutaneously daily --Initiate Ozempic 0.25 mg injected subcutaneously once weekly for 4 weeks then increase to 0.5 mg once weekly --Keep detailed BG & insulin dosing log to review at follow-up --Consider taking Ropinirole ER 6 mg tablet at bedtime --Follow-up with clinical manager pharmacy in 6-7 weeks to discuss diabetes management Patient education was provided via: (X) Verbal instructions (X) Written instructions (X) Patient education handout(s) --Ozempic handout --Hypoglycemia treatment Approximate time spent with the patient: 60 minutes Aliza Johnson PharmD Candidate DANIELA JORDAN, PHARMD, BCPS, [facility]ICAL SUBGRADE TESTER [facility] Cosigned by Daniela Jordan RPh at 06/12/2024 2:14 PM EST documented in this encounter Plan of Treatment Upcoming Encounters Date Type Department Care Team (Late st Contact Info) Description 06/05/2025 1:00 PM EST Clinical Support [facility], [address] [place] [address] 07/11/2025 4:30 PM EST Office Visit [facility], [address] [place] [address] Carmen Oliver MD [address] [address] documented as of this encounter Visit Diagnoses Not on filedocumented in this encounter Care Teams Administration Clerk Relationship Specialty Start Date End Date Alva Ruiz PA-C [address] [place] [address] PCP - General Physician Tomato Pulper Operator 02/16/22 documented as of this encounter
--- OUTSIDE RECORDS SUMMARY | 2025-05-28 18:39 | XMS_ITS | Encounter Summary ---
Author Organization [facility] Address [address] [place] [address] Phone Care Team Providers Care Business Planning Director Name Role Phone Alva Ruiz PA-C Primary Care Provider [phone] Encounter Details Date Type Department Care Team (Late st Contact Info) Description 11/02/2024 Documentation Only [facility] [address] [place] [address] [place] [phone] Social History Tobacco Use Types Packs/Day Years [...] [facility] [address] [place] [address] 07/11/2025 4:30 PM EST Office Visit [facility] [address] [place] [address] Carmen Oliver MD [address] [place] [address] [place] [address] documented as of this encounter Visit Diagnoses Not on filedocumented in this encounter Care Teams Business Planning Director Relationship Specialty Start Date End Date Alva Ruiz PA-C [facility] [place] [address] PCP - General Physician Brusher Operator 02/16/22 documented as of this encounter
--- OUTSIDE RECORDS SUMMARY | 2025-05-28 18:39 | XMS_ITS | Encounter Summary ---
Author Organization [facility] Address [address] [place] [address] Phone Care Team Providers Care Signal Intelligence/Electronic Warfare Name Role Phone Alva Ruiz PA-C Primary Care Provider [phone] Encounter Details Date Type Department Care Team (Late st Contact Info) Description 12/19/2024 Documentation Only [facility] [address] [place] [address] Deidre Sigala [address] [place] [phone] Social History Tobacco Use Types Packs/Day Years [...] Support [facility] [address] [place] [address] 07/11/2025 4:30 PM EST Office Visit [facility] [address] [place] [address] Carmen Oliver MD [address] [place] [address] [place] [address] documented as of this encounter Visit Diagnoses Not on filedocumented in this encounter Care Teams Signal Intelligence/Electronic Warfare Relationship Specialty Start Date End Date Alva Ruiz PA-C [facility] [place] [address] PCP - General Physician Mold Tooling Technician 02/16/22 documented as of this encounter
--- OUTSIDE RECORDS SUMMARY | 2025-05-28 18:39 | XMS_ITS | Encounter Summary ---
Author Organization [facility] Address [address] [place] [address] Phone Care Team Providers Care Edi Architect Name Role Phone Alva Ruiz PA-C Primary Care Provider [phone] Encounter Details Date Type Department Care Team (Late st Contact Info) Description 02/26/2025 Documentation Only [facility] [address] [place] [address] [place] [phone] Social History Tobacco Use Types Packs/Day Years [...] Support [facility] [address] [place] [address] 07/11/2025 4:30 PM EST Office Visit [facility] [address] [place] [address] Carmen Oliver MD [address] [place] [address] [place] [address] documented as of this encounter Visit Diagnoses Not on filedocumented in this encounter Care Teams Edi Architect Relationship Specialty Start Date End Date Alva Ruiz PA-C [employer] [place] [address] PCP - General Physician Family Consultant 02/16/22 documented as of this encounter
--- OUTSIDE RECORDS SUMMARY | 2025-05-28 18:39 | XMS_ITS | Encounter Summary ---
Author Organization [facility] Address [address] [place] [address] Phone Care Team Providers Care Clinical Transplant Coordinator Name Role Phone Alva Ruiz PA-C Primary Care Provider [phone] Encounter Details Date Type Department Care Team (Late st Contact Info) Description 10/24/2024 Documentation Only [facility] [address] [place] [phone] [place] [address] Social History Tobacco Use Types [...] Support [facility] [address] [place] [address] 07/11/2025 4:30 PM EST Office Visit [facility] [place], [address] [place] [address] Carmen Oliver MD [address] [address] documented as of this encounter Visit Diagnoses Not on filedocumented in this encounter Care Teams Clinical Transplant Coordinator Relationship Specialty Start Date End Date Alva Ruiz PA-C [address] [place] [address] PCP - General Physician Rim Fire Priming Operator 02/16/22 documented as of this encounter
--- OUTSIDE RECORDS SUMMARY | 2025-05-28 18:39 | XMS_ITS | Encounter Summary ---
Author Organization [facility] Address [address] [place] [address] Phone Care Team Providers Care Senior Construction Estimator Name Role Phone Alva Ruiz PA-C Primary Care Provider [phone] Encounter Details Date Type Department Care Team (Late st Contact Info) Description 11/10/2023 Documentation Only [facility] [address] [place] [address] [place] [phone] Social History Tobacco Use Types Packs/Day Years [...] [facility] [address] [place] [address] 07/11/2025 4:30 PM EST Office Visit [facility] [address] [place] [address] Carmen Oliver MD [address] [place] [address] [place] [address] documented as of this encounter Visit Diagnoses Not on filedocumented in this encounter Care Teams Senior Construction Estimator Relationship Specialty Start Date End Date Alva Ruiz PA-C [facility] [place] [address] PCP - General Physician Landscape Gardener 02/16/22 documented as of this encounter
--- OUTSIDE RECORDS SUMMARY | 2025-05-28 18:39 | XMS_ITS | Encounter Summary ---
Author Organization [facility] Address [address] [place] [address] Phone Care Team Providers Care Magazine Keeper Name Role Phone Alva Ruiz PA-C Primary Care Provider [phone] Encounter Details Date Type Department Care Team (Late st Contact Info) Description 11/10/2023 Documentation Only [facility] [address] [place] [address] [place] [phone] Social History Tobacco Use Types Packs/Day Years [...] Support [facility] [address] [place] [address] 07/11/2025 4:30 PM EST Office Visit [facility] [address] [place] [address] Carmen Oliver MD [address] [place] [address] [place] [address] documented as of this encounter Visit Diagnoses Not on filedocumented in this encounter Care Teams Magazine Keeper Relationship Specialty Start Date End Date Alva Ruiz PA-C [facility] [place] [address] PCP - General Physician Stack Yield Engineer 02/16/22 documented as of this encounter
== END 2025-05-28 16:06 | disposition home or self-care (01) ==
LOC: HO.HSMS 14:52
PROVIDERS: PCP Physician Assistant Medical; Visit Provider Psychiatry & Neurology Neurology
DX: G20.A2 Parkinson's disease without dyskinesia, with fluctuations (principal); G25.81 Restless legs syndrome; G47.62 Sleep related leg cramps; G47.33 Obstructive sleep apnea (adult) (pediatric); G62.9 Polyneuropathy, unspecified
CPT/HCPCS: 99214

== ENCOUNTER 2025-05-28 14:51 | Outpatient (REF) | payer MEDICAID, SELFPAY ==
[2025-05-28 18:16] LABS: MANUAL DIFF FLAG NO
[2025-05-28 18:32] LABS: Hematocrit 40.5 % (42.0-52.0); Hemoglobin 13.4 g/dl (14.0-18.0); Imm Gran Abs Auto 0.04 X10*3/uL (0.00-0.03); Imm Gran Pct Auto 0.5 % (0.0-0.4); Lymphocytes Absolute Auto 0.8 X10*3/uL (1.2-4.9); Mean Corpuscular HGB Conc 33.1 g/dl (31.0-36.0); Mean Corpuscular Hemoglobin 28.1 pg (27.0-33.0); Mean Corpuscular Volume 84.9 fL (80.0-98.0); NRBC Abs Auto 0.000 X10*3/uL (0.0-0.012); NRBC Pct Auto 0.0 /100WBC (0.0-0.2); Platelet Count 220 X10*3/uL (160-400); Red Blood Count 4.77 X10*6/uL (4.60-5.80); White Blood Count 8.3 X10*3/uL (4.8-10.8)
[2025-05-28 18:55] LABS: Alanine Aminotransferase 9 U/L (0-40); Albumin Level 4.4 g/dL (3.5-5.0); Alkaline Phosphatase 92 U/L (39-117); Anion Gap 11 (12-20); Aspartate Amino Transferase 20 U/L (5-37); Blood Urea Nitrogen 46 mg/dL (9-16); Calcium 9.0 mg/dL (8.4-10.2); Carbon Dioxide 20 mmol/L (22-29); Chloride 112 mmol/L (96-108); Estimated Glomerular Filt Rate 22; Potassium 5.2 mmol/L (3.3-5.1); Sodium 138 mmol/L (135-145); Total Protein 7.1 g/dL (6.5-8.0)
[2025-05-28 19:18] LABS: Folate 6.8 ng/mL (> or = 4.0); Vitamin B12 1349 pg/mL (200-900)
[2025-05-28 19:29] LABS: Erythrocyte Sedimentation Rate 19 MM/HR (0-15)
[2025-05-29 05:44] LABS: Hemoglobin A1C 122.7117 umol/L
[2025-06-01 13:02] LABS: Vitamin D 25-OH, D2 <4 ng/mL; Vitamin D 25-OH, D3 30 ng/mL; Vitamin D 25-OH, Total 30 ng/mL (30-100)
== END 2025-05-28 14:52 | disposition home or self-care (01) ==
LOC: HO.HKASLDS 14:51
PROVIDERS: PCP Physician Assistant Medical; Visit Provider Psychiatry & Neurology Neurology
DX: G20.A2 Parkinson's disease without dyskinesia, with fluctuations (principal); G25.81 Restless legs syndrome; G47.62 Sleep related leg cramps; G47.33 Obstructive sleep apnea (adult) (pediatric); G62.9 Polyneuropathy, unspecified; E11.22 Type 2 diabetes mellitus with diabetic chronic kidney disease; N18.30 Chronic kidney disease, stage 3 unspecified; D86.9 Sarcoidosis, unspecified
CPT/HCPCS: 36415; 80053; 82306; 82607; 82746; 83036; 83090; 84443; 85025; 85652; 99212

== ENCOUNTER 2025-06-11 09:01 | Outpatient (AMB) | payer MEDICAID, SELFPAY ==
--- NOTE | 2025-06-11 09:15 | HO.NEPHOV ---
Vital Signs 06/11/25 09:18 Height 5 ft 8 in Weight 210 lb 2 oz BMI 31.9 BP 110/70 Blood Pressure Location Lt brachial Position Sitting Pulse 67 Pulse Source Pulse Oximeter Pulse Oximetry (%) 100 Oxygen Delivery Method Room Air Intake Visit Reasons: INP DX -CKD-LVM Case Finishing Machine Adjuster Required: No Accompanied by: Self / Same As Patient Allergies No Known Allergies Allergy (Verified 06/11/25 09:17) HPI Comments Details: I had the privilege of seeing Luiz in consultation for transfer of his renal care to me. He has Diabetes mellitus for over 20 years. His HbA1c has improved from 12 to 7.3(He is unsure whether its due to decline in renal function ). He never had renal biopsy.He has H/O stones( kidney and bladder). 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 He denies neuropathybut has H/O CAD, cardiomyopathy with EF 32 %. He denies CVA or PAD. He has SOBE as well as intermittent PND. He has hypertension and dyslipidemia & his BP is well controlled on medn. He has H/O sarcoidosis as well as Reiters but No H/O malignancy; H/O liver biopsy. Denied any H/O renal issues in family or prostatic issues. He is concerned about his declining renal function. He did not have any other specific complaint at the time of the office visit [facility] Medical History (Updated 06/11/25 @ 22:36 by Suresh Bhakta MD) CKD (chronic kidney disease) stage 3, GFR 30-59 ml/min Neuropathy Obstructive sleep apnea hypopnea, moderate Parkinson's disease without dyskinesia, without mention of fluctuations Uveitic glaucoma Parkinson's disease without dyskinesia or fluctuating manifestations Hypersomnia Carpal tunnel syndrome of right wrist Obstructive sleep apnea Katie's disease Diabetes Hyperlipidemia HTN (hypertension) Sarcoidosis Surgical History No history of previous surgery Family History Mother Diabetes mellitus Father Heart failure Social History Alcohol intake: current Alcohol intake frequency: holidays/special occasions only Patient Tobacco Use Status: Never used Tobacco Current occupational status: employed Current occupation: Dealership Review of Systems Const All systems reviewed & are unremarkable except as noted in HPI and below Physical Exam Vital Signs: Last Vital Signs Pulse 67 06/11/25 09:18 BP 110/70 06/11/25 09:18 Pulse Ox 100 06/11/25 09:18 Oxygen Delivery Method Room Air 06/11/25 09:18 BMI result Body Mass Index 31.9 Const General: comfortable and no acute distress Orientation/consciousness: patient oriented x3 HEENT Head: Yes normocephalic Mouth: Normal oral and palatal mucosa present Eyes EOM: EOMs intact bilaterally Neck Neck: Yes supple Resp Auscultation: clear to auscultation bilaterally Cardio Jugular venous distension: no JVD Rate: regular rate GI Palpation (GI): Soft to palpation Auscultation: normal bowel sounds General: Yes no CVA tenderness Back/Spine/Pelvis Back: no CVA tenderness Skin General skin exam: no rashes or lesions noted Neuro General: patient oriented x3 and moves all extremities Extrem General: Yes no pedal edema Results Reviewed Nephrology Results: Hgb, (14.0-18.0) 13.4 g/dl L 05/28/25 WBC, (4.8-10.8) 8.3 X10*3/uL 05/28/25 Plt Count, (160-400) 220 X10*3/uL 05/28/25 Sodium, (135-145) 138 mmol/L 05/28/25 Potassium, (3.3-5.1) 5.2 mmol/L H 05/28/25 Chloride, (96-108) 112 mmol/L H 05/28/25 Carbon Dioxide, (22-29) 20 mmol/L L 05/28/25 BUN, (9-16) 46 mg/dL H 05/28/25 Creatinine, (0.5-1.4) 2.94 mg/dL H 05/28/25 Calcium, (8.4-10.2) 9.0 mg/dL Δ 05/28/25 Assessment & Plan Assessment & Plan (1) Sarcoidosis: Comment: +HLA b27 Code(s): D86.9 - Sarcoidosis, unspecified Category: Medical (2) HTN (hypertension): Code(s): I10 - Essential (primary) hypertension Category: Medical Qualifiers: Hypertension type: primary hypertension Qualified Code(s): I10 - Essential (primary) hypertension (3) CKD stage 4 due to type 2 diabetes mellitus: Code(s): E11.22 - Type 2 diabetes mellitus with diabetic chronic kidney disease; N18.4 - Chronic kidney disease, stage 4 (severe) Category: Medical Plan Luiz likely has progression of his diabetic renal disease; Has H/O sarcoidosis & Reiters Unlikely to have non caseating granulomatous infiltrative disorder of kidneys( but is DDX) Amyloidosis needs to be ruled out given renal disease/cardiomyopathy On ARB/SGLT2i/ASA; No NSAID's; Good hydration; W/U ordered including renal biopsy No medication changes made today; All the above possibilites/W/U/Management strategies discussed Answered all questions & F/U given Orders: Orders Hepatitis B Surface Antigen 3 Weeks D86.9 - Sarcoidosis, unspecified, . - Type 2 diabetes mellitus with diabetic chronic kidney disease, I10 - Essential (primary) hypertension, N18.4 - Chronic kidney disease, stage 4 (severe) Calcium 3 Weeks D86.9 - Sarcoidosis, unspecified, . - Type 2 diabetes mellitus with diabetic chronic kidney disease, I10 - Essential (primary) hypertension, N18.4 - Chronic kidney disease, stage 4 (severe) Electrolytes 3 Weeks D86.9 - Sarcoidosis, unspecified, . - Type 2 diabetes mellitus with diabetic chronic kidney disease, I10 - Essential (primary) hypertension, N18.4 - Chronic kidney disease, stage 4 (severe) Creatinine 3 Weeks D86.9 - Sarcoidosis, unspecified, . - Type 2 diabetes mellitus with diabetic chronic kidney disease, I10 - Essential (primary) hypertension, N18.4 - Chronic kidney disease, stage 4 (severe) Complement C3 3 Weeks D86.9 - Sarcoidosis, unspecified, . - Type 2 diabetes mellitus with diabetic chronic kidney disease, I10 - Essential (primary) hypertension, N18.4 - Chronic kidney disease, stage 4 (severe) Proteinase 3 PR3 Antibodies 3 Weeks D86.9 - Sarcoidosis, unspecified, . - Type 2 diabetes mellitus with diabetic chronic kidney disease, I10 - Essential (primary) hypertension, N18.4 - Chronic kidney disease, stage 4 (severe) Parathyroid Hormone Intact 3 Weeks D86.9 - Sarcoidosis, unspecified, . - Type 2 diabetes mellitus with diabetic chronic kidney disease, I10 - Essential (primary) hypertension, N18.4 - Chronic kidney disease, stage 4 (severe) Vitamin D 25-OH Total 3 Weeks D86.9 - Sarcoidosis, unspecified, . - Type 2 diabetes mellitus with diabetic chronic kidney disease, I10 - Essential (primary) hypertension, N18.4 - Chronic kidney disease, stage 4 (severe) Immunofixation, Random Urine 3 Weeks D86.9 - Sarcoidosis, unspecified, . - Type 2 diabetes mellitus with diabetic chronic kidney disease, I10 - Essential (primary) hypertension, N18.4 - Chronic kidney disease, stage 4 (severe) US renal BI 2 Weeks E11. - Type 2 diabetes mellitus with diabetic chronic kidney disease, N18.4 - Chronic kidney disease, stage 4 (severe) Hepatitis B Core Antibody 3 Weeks D86.9 - Sarcoidosis, unspecified, . - Type 2 diabetes mellitus with diabetic chronic kidney disease, I10 - Essential (primary) hypertension, N18.4 - Chronic kidney disease, stage 4 (severe) Hepatitis B Surface Antibody 3 Weeks D86.9 - Sarcoidosis, unspecified, . - Type 2 diabetes mellitus with diabetic chronic kidney disease, I10 - Essential (primary) hypertension, N18.4 - Chronic kidney disease, stage 4 (severe) Blood Urea Nitrogen 3 Weeks D86.9 - Sarcoidosis, unspecified, . - Type 2 diabetes mellitus with diabetic chronic kidney disease, I10 - Essential (primary) hypertension, N18.4 - Chronic kidney disease, stage 4 (severe) Phospholipase A2 Receptor Pnl 3 Weeks D86.9 - Sarcoidosis, unspecified, . - Type 2 diabetes mellitus with diabetic chronic kidney disease, I10 - Essential (primary) hypertension, N18.4 - Chronic kidney disease, stage 4 (severe) Immunofixation Pnl, Serum 3 Weeks D86.9 - Sarcoidosis, unspecified, E11. - Type 2 diabetes mellitus with diabetic chronic kidney disease, I10 - Essential (primary) hypertension, N18.4 - Chronic kidney disease, stage 4 (severe) Complement C4 3 Weeks D86.9 - Sarcoidosis, unspecified, E11.22 - Type 2 diabetes mellitus with diabetic chronic kidney disease, I10 - Essential (primary) hypertension, N18.4 - Chronic kidney disease, stage 4 (severe) Anti DNA DS Antibody 3 Weeks D86.9 - Sarcoidosis, unspecified, . - Type 2 diabetes mellitus with diabetic chronic kidney disease, I10 - Essential (primary) hypertension, N18.4 - Chronic kidney disease, stage 4 (severe) Myeloperoxidase Antibody 3 Weeks D86.9 - Sarcoidosis, unspecified, . - Type 2 diabetes mellitus with diabetic chronic kidney disease, I10 - Essential (primary) hypertension, N18.4 - Chronic kidney disease, stage 4 (severe) Anti Glomerular Basement Memb 3 Weeks D86.9 - Sarcoidosis, unspecified, . - Type 2 diabetes mellitus with diabetic chronic kidney disease, I10 - Essential (primary) hypertension, N18.4 - Chronic kidney disease, stage 4 (severe) Complete Blood Count Auto Diff 3 Weeks D86.9 - Sarcoidosis, unspecified, . - Type 2 diabetes mellitus with diabetic chronic kidney disease, I10 - Essential (primary) hypertension, N18.4 - Chronic kidney disease, stage 4 (severe) Prothrombin Time INR 3 Weeks D86.9 - Sarcoidosis, unspecified, - Type 2 diabetes mellitus with diabetic chronic kidney disease, I10 - Essential (primary) hypertension, N18.4 - Chronic kidney disease, stage 4 (severe) Protein Creatinine Ratio, Ur 3 Weeks D86. - Sarcoidosis, unspecified, . - Type 2 diabetes mellitus with diabetic chronic kidney disease, I10 - Essential (primary) hypertension, N18.4 - Chronic kidney disease, stage 4 (severe) US renal doppler 2 Weeks . - Type 2 diabetes mellitus with diabetic chronic kidney disease, N18.4 - Chronic kidney disease, stage 4 (severe) Coding Level of Care Code New Pt Level 4 (99391) Diagnoses Sarcoidosis D86. Primary hypertension I10 Hypertension type: primary hypertension CKD stage 4 due to type 2 diabetes mellitus ; N18.4
[2025-06-11 09:18] VITALS: BP 110/70; PULSE 67; O2SAT 100; BMI 31.9
== END 2025-06-11 09:53 | disposition home or self-care (01) ==
PROVIDERS: PCP Physician Assistant Medical; Visit Provider Internal Medicine Nephrology
DX: D86.9 Sarcoidosis, unspecified (principal); I12.9 Hypertensive chronic kidney disease with stage 1 through stage 4 chronic kidney disease, or unspecified chronic kidney disease; E11.22 Type 2 diabetes mellitus with diabetic chronic kidney disease; N18.4 Chronic kidney disease, stage 4 (severe)
CPT/HCPCS: 99204

== ENCOUNTER → 2025-06-11 09:01 | Outpatient (BNVA) | payer MEDICAID, SELFPAY | PROVIDERS: PCP Physician Assistant Medical; Visit Provider Internal Medicine Nephrology | DX: I12.9 Hypertensive chronic kidney disease with stage 1 through stage 4 chronic kidney disease, or unspecified chronic kidney disease (principal); N18.4 Chronic kidney disease, stage 4 (severe); E11.22 Type 2 diabetes mellitus with diabetic chronic kidney disease; D86.9 Sarcoidosis, unspecified; Z79.84 Long term (current) use of oral hypoglycemic drugs; Z79.899 Other long term (current) drug therapy | CPT/HCPCS: 99202 ==

== ENCOUNTER 2025-06-14 12:58 | Outpatient (AMB) | payer MEDICAID, SELFPAY ==
--- NOTE | 2025-06-14 13:01 | A.OFFVIS_ITS ---
Vital Signs 06/14/25 13:02 Height 5 ft 8 in Weight 209 lb 10.554 oz BMI 31.9 BP 128/82 Blood Pressure Location Lt brachial Position Sitting Pulse 79 Pulse Source Pulse Oximeter Pulse Oximetry (%) 97 Oxygen Delivery Method Room Air Intake Visit Reasons: t2dm Intake Note: Patient present today for Type 2 Diabetes Mellitus Last Diabetic eye exam: Last exam was 03/2025 and has upcoming appt next Tuesday. Last Podiatry Visit: Has upcoming appt this month. Random Glucose: 121 mg/dl HgA1C: 7.0% 05/28/25 Intelligence Manager Required: No Accompanied by: Self / Same As Patient Allergies No Known Allergies Allergy (Verified 06/14/25 13:07) Medication List - Last Reconciled 06/14/25 by Elizabeth Ron PA-C alcohol swabs pad topical TID blood sugar diagnostic (FreeStyle Lite Strips) As directed blood-glucose sensor (Augmented Pixels COStyle Michael 3 Plus Sensor device) Use daily As directed to monitor glucose blood-glucose,medical liaison,cont (FreeStyle Michael 3 Bradley) Use daily As directed to monitor blood glucose brimonidine 0.2% 1 drp ophthalmic (eye) Q8H carbidopa-levodopa 25-100 mg 2 tabs PO QID carvedilol 12.5 mg PO BID cholecalciferol (vitamin D3) 25 mcg PO DAILY dapagliflozin propanediol (Farxiga) 10 mg PO DAILY diclofenac sodium 1% 2 grams topical BID dorzolamide-timolol 22.3-6.8 mg/mL 1 drp ophthalmic (eye) BID gabapentin 300 mg PO Q8H glucose (Dex4 Glucose) 16 grams (4 x 4 gram) PO Q15M PRN insulin glargine (Lantus Solostar U-100 Insulin) 20 units (0.2 mL) subcut QPM insulin lispro (Humalog KwikPen (U-100) Insulin) 5 units (0.05 mL) subcut TID lancets (FreeStyle Lancets) As directed lidocaine 5% 1 patch topical DAILY loratadine 10 mg PO DAILY PRN mecobalamin (vitamin B12) (B12 Active) 1,000 mcg PO DAILY pen needle, diabetic (BD Maite 2nd Gen Pen Needle) As directed pen needle, diabetic (BD Ultra-Fine Short Pen Needle) As directed ropinirole ER 6 mg PO BEDTIME spironolactone 12.5 mg PO DAILY triamcinolone acetonide 0.1% appl topical trihexyphenidyl 2 mg PO BID valsartan 40 mg PO BEDTIME HPI HPI t2dm: Details: Patient is a 54-year-old male with a significant past medical history of stage 4 kidney disease, Parkinson's, CRISTINA, hypertension, hyperlipidemia, sarcoidosis and type 2 diabetes presenting today for a consultation regarding his diabetes. Endo: Dm-last A1c was 7. Diagnosed with diabetes around 2003. He is currently on Farxiga 10 mg daily, Lantus 34 units nightly, Humalog 8. He states he has not been taking the lantus consistently due to low blood sugars. He states that sometimes even when he uses the Humalog at the 8 units he will still get low blood sugars. He is checking about 2-3 x a day and they range from 80-140. CGM- never had this. He is unsure about using this. We spent approximately 25 minutes on just cgm discussions. He does not want it because he thinks it can possibly worsen parkinson's. We discussed parkinsons can cause autonomic dysfunction and fluctuations in blood sugars and the benefit to using a CGM. CV: Blood pressure today in the office is 128/82. He is currently on valsartan 40 mg at bedtime, spironolactone 12.5 mg daily, carvedilol 12.5 mg twice a day. [facility] Medical History (Updated 06/11/25 @ 22:36 by Suresh Bhakta MD) CKD (chronic kidney disease) stage 3, GFR 30-59 ml/min Neuropathy Obstructive sleep apnea hypopnea, moderate Parkinson's disease without dyskinesia, without mention of fluctuations Uveitic glaucoma Parkinson's disease without dyskinesia or fluctuating manifestations Hypersomnia Carpal tunnel syndrome of right wrist Obstructive sleep apnea Katie's disease Diabetes Hyperlipidemia HTN (hypertension) Sarcoidosis Surgical History No history of previous surgery Family History Mother Diabetes mellitus Father Heart failure Social History Alcohol intake: current Alcohol intake frequency: holidays/special occasions only Patient Tobacco Use Status: Never used Tobacco Current occupational status: employed Current occupation: Dealership Physical Exam Const Orientation/consciousness: patient oriented x3 HEENT Ears: hearing grossly normal bilaterally Neck Neck: Yes no lymphadenopathy Thyroid: Thyroid normal Carotids: no bruits Lymphatic: no lymphadenopathy noted Resp Auscultation: clear to auscultation bilaterally Cardio Rate: regular rate Rhythm: regular rhythm Heart sounds: S1 normal heart sound present and S2 normal heart sound present Skin General skin exam: no rashes or lesions noted Neuro General: patient oriented x3, gait normal and no focal motor deficits Extrem Other: Monofilament sensation intact bilaterally. Vibratory sensation intact bilaterally. Skin intact. General: Yes normal to inspection Assessment & Plan Assessment & Plan (1) CKD stage 4 due to type 2 diabetes mellitus: Code(s): E11.22 - Type 2 diabetes mellitus with diabetic chronic kidney disease; N18.4 - Chronic kidney disease, stage 4 (severe) Category: Medical Plan: reduce lantus to 20 units reduce humalog to 5 units prior to meals continue farxiga 10 mg -if still getting low blood sugars despite lowering treatment he will call me sensors and reader ordered referral to diabetic education for sensor instructions - does not want this today. I offered sensor today and to set up but against this and wants to research rule of 15s discussed glucose tabs and spray ordered short term follow up in 8 weeks with me or sooner if needed Orders: Referrals Endocrinology Referral E11.22 - Type 2 diabetes mellitus with diabetic chronic kidney disease, N18.4 - Chronic kidney disease, stage 4 (severe) Diabetes Education Referral E11.22 - Type 2 diabetes mellitus with diabetic chronic kidney disease, N18.4 - Chronic kidney disease, stage 4 (severe) Medications: New blood-glucose sensor (FreeStyle Michael 3 Plus Sensor device) Use daily As directed to monitor glucose 2 ea 5RF E08.29 - Diabetes mellitus due to underlying condition with other diabetic kidney complication, R80.8 - Other proteinuria, Z79.4 - terminal superintendent (current) use of insulin glucose (Dex4 Glucose) until symptoms of low blood sugar are controlled 16 grams (4 x 4 gram) PO Q15M PRN 100 tabs 0RF hypoglycemia insulin glargine (Lantus Solostar U-100 Insulin) 20 units (0.2 mL) subcut QPM 15 mL 3RF blood-glucose,medical liaison,cont (FreeStyle Michael 3 Bradley) Use daily As directed to monitor blood glucose 1 ea 0RF E11.65 - Type 2 diabetes mellitus with hyperglycemia, Z79.4 - skilled nursing (current) use of insulin glucagon 3 mg/actuation 3 mg intranasal ONCE PRN 2 ea 0RF hypoglycemia Changed From insulin lispro (Humalog KwikPen (U-100) Insulin) 5 units subcut TID To insulin lispro (Humalog KwikPen (U-100) Insulin) take with meals, Do not administer if blood sugar is less than 150. 5 units (0.05 mL) subcut TID 15 mL 1RF Patient Instructions: reduce lantus to 20 units reduce humalog to 5 units prior to meals continue farxiga 10 mg -if still getting low blood sugars despite lowering treatment he will call me sensors and reader ordered referral to diabetic education for sensor instructions - does not want this today. I offered sensor today and to set up but against this and wants to research rule of 15s discussed glucose tabs and spray ordered short term follow up in 8 weeks with me or sooner if needed Coding Level of Care Code New Pt Level 4 (43368) Add On Problem Visit Only Diagnoses CKD stage 4 due to type 2 diabetes mellitus E11.22; N18.4
[2025-06-14 13:02] VITALS: BP 128/82; PULSE 79; O2SAT 97; BMI 31.9
[2025-06-14 13:12] LABS: Glucose, Whole Blood 121 mg/dL (60-115)
--- OUTSIDE RECORDS SUMMARY | 2025-06-14 18:38 | XMS_ITS | Clinical Summary ---
Author Organization [facility] Address [address] [place] [id number] Phone Care Team Providers Care Hand Chain Maker Name Role Phone Alva Ruiz PA-C Primary Care Provider [phone] Allergies Active Allergy Reactions Criticality Noted Date [...] 04/03/2012, 06/01/2011, Additional history exists COVID-19 VACCINE (2024- season) 2025 SCREENING FOR DIABETES 11/22/2026 11/23/2023 [...] topic Medical Devices Not on file Insurance [facility] DIRECT [employer] [place] [address] [place] [address] [place] [address] [place] [address] [employer] DIRECT Care Teams Hand Chain Maker Relationship Specialty Start Date End Date Alva Ruiz PA-C PCP - General Physician Bundle Wrapper 01/25/24 Additional Source Comments The information contained in this document represents components of the legal health record. It is not the complete legal health record.[facility]
--- OUTSIDE RECORDS SUMMARY | 2025-06-14 18:38 | XMS_ITS | Clinical Summary ---
Author Organization [employer] Address [address] [place] [address] Care Team Providers Care Aix System Administrator Name Role Phone Unavailable Primary Care Provider [...]
--- OUTSIDE RECORDS SUMMARY | 2025-06-14 18:38 | XMS_ITS | Clinical Summary ---
Author Organization [address] [facility] Address 175 [place] [address] Phone Care Team Providers Care Learning And Development Administrator Name Role Phone Alva Ruiz Primary Care Provider [phone] Allergies Active Allergy Reactions Criticality Noted Date [...] PM EDT Office Visit Orthopedic Surgery - [address] [address] Guy Gomez, DPM Metatarsalgia of both feet (Primary Dx); Peripheral venous insufficiency; Diabetic mononeuropathy simplex ([facility] V24, [facility] V28); Dermatophytosis of nail; Corns and callosities; Pain in toe of left foot; Pain in toe of right foot; Type 2 diabetes mellitus with hyperglycemia, with long-term current use of insulin ([facility] V24, [facility] V28); Hammer toe of left foot; Acquired hammer toe of right foot from Last 3 Months Immunizations Immunization Administration Dates Next Due Moderna SARS-CoV-2 COVID-19, mRNA, LNP-S, preservative free 04/09/2022 Surgical History Surgery Date Site/Laterality Comments COLOSTOMY Medical History Medical History Date Comments Parkinson disease ([facility] V24, [facility] V28) Diabetes mellitus ([facility] V24, [facility] V28) Hyperlipidemia Hypertension Glaucoma Sleep apnea Loss of vision Sarcoidosis Katie's disease ([facility] V24, [facility] V28) Vitamin D deficiency Cataracts, bilateral Anal fissure Pneumothorax CKD (chronic kidney disease), stage III ([facility] V24, [facility] V28) Pneumonia CHF (congestive heart failure) ([facility] V24, [facility] V28) NSTEMI (non-ST elevated myoc ardial infarction) ([facility] V24, [facility] V28) Nephrolithiasis Restless leg syndrome Cardiomyopathy ([facility] V24, [facility] V28) Obesity Covid-19 Social History Tobacco Use [...] PM EST Office Visit Orthopedic Surgery - [place] [address] [address] Guy Gomez, DPM [address] [phone] Health Maintenance Due Date Last Done Comments [...] Maintenance Results * COLONOSCOPY Anesthesia - MAC; [facility] ENDOSCOPY (12/05/2024 2:07 PM EDT) [...] pathology results. Narrative 12/05/2024 2:04 PM EDT [facility] GI Patient Name: Laverne Torres Procedure Date: 12/05/2024 1:46 PM Date of : 1970 Age: 54 Gender: Male Note Status: Finalized Attending MD: Ansley Nguyen DO, [id number] Procedure Date No Time: 12/05/2024 Procedure: Colonoscopy [...] the physician, the nurse, the anesthesiologist, the registered associate and the certified pharmacy technician in the pre-procedure area in the [...] retroflexion views. Procedure Code(s): --- Professional --- 12042, Colonoscopy, flexible; with removal of tumor(s), polyp(s), or other lesion(s) by snare technique Diagnosis Code(s): --- Professional --- D12.5, Benign neoplasm of sigmoid colon K64.9, Unspecified hemorrhoids Z12.11, Encounter for screening for malignant neoplasm of colon CPT copyright 2020 [employer]. All rights reserved. The codes documented in this report are preliminary and upon debug technician review may be revised to meet current compliance requirements. ANSLEY Nguyen DO 12/05/2024 2:04:22 PM This report has been signed electronically.Ansley Nguyen DO Number of Addenda: 0 Note Initiated On: 12/05/2024 1:46 PM Scope Withdrawal Time: 0 hours 8 minutes 47 seconds Scope In: 1:52:03 PM Scope Out: 2:03:09 PM Endoscopy Department at [facility] - [address] [place] [phone] Procedure Note Ansley Nguyen DO - 12/05/2024 [facility] GI Patient Name: Laverne Torres Procedure Date: 12/05/2024 1:46 PM Date of : 1970 Age: 54 Gender: Male Note Status: Finalized Attending MD: Ansley Nguyen DO, [id number] Procedure Date No Time: 12/05/2024 Procedure: Colonoscopy [...] the physician, the nurse, the anesthesiologist, the registered associate and thetechnician in the pre-procedure area in [...] retroflexion views. Procedure Code(s): --- Professional --- 80243, Colonoscopy, flexible; with removal of tumor(s), polyp(s), or other lesion(s) by snare technique Diagnosis Code(s): --- Professional --- D12.5, Benign neoplasm of sigmoid colon K64.9, Unspecified hemorrhoids Z12.11, Encounter for screening for malignantneoplasm of colon CPT copyright 2020 [employer]. All rights reserved. The codes documented in this report are preliminary and upon debug technician reviewmay be revised to meet current compliance requirements. ANSLEY Nguyen DO 12/05/2024 2:04:22 PM This report has been signed electronically.Ansley Nguyen DO Number of Addenda: 0 Note Initiated On: 12/05/2024 1:46 PM Scope Withdrawal Time: 0 hours 8 minutes 47 seconds Scope In: 1:52:03 PM Scope Out: 2:03:09 PM Endoscopy Department at [facility] - [address] [place] [phone] IMPRESSION: - Hemorrhoids found on perianal exam. [...] Maintenance Insurance MEDICA[place] - [place] Care Teams Learning And Development Administrator Relationship Specialty Start Date End Date Alva Ruiz PA [address] [place] [address] PCP - General 08/30/23
== END 2025-06-14 13:41 | disposition home or self-care (01) ==
LOC: HO.ENCR 12:58
PROVIDERS: PCP Physician Assistant Medical; Visit Provider Physician Assistant
DX: E11.22 Type 2 diabetes mellitus with diabetic chronic kidney disease (principal); N18.4 Chronic kidney disease, stage 4 (severe)

== ENCOUNTER → 2025-06-14 12:58 | Outpatient (BNVA) | payer MEDICAID, SELFPAY | PROVIDERS: PCP Physician Assistant Medical; Visit Provider Physician Assistant | DX: E11.22 Type 2 diabetes mellitus with diabetic chronic kidney disease (principal); N18.4 Chronic kidney disease, stage 4 (severe); Z79.4 Long term (current) use of insulin | CPT/HCPCS: 82947; 99212 ==

== ENCOUNTER 2025-06-26 09:07 | Outpatient (REF) | payer MEDICAID, SELFPAY ==
--- OUTSIDE RECORDS SUMMARY | 2025-06-25 10:30 | XMS_ITS | Encounter Summary ---
Author Organization [facility] Address [address] [place] [address] Care Team Providers Care Process Improvement Analyst Name Role Phone Alva Ruiz Primary Care Provider [phone] Reason for Visit * Reason Comments DM Foot Care Encounter Details Date Type Department Care Team ([facility] Contact Info) Description 06/25/2025 10:30 AM EST Office Visit Orthopedic Surgery [facility] 250 175 [facility] [address] [place] [address] Guy Gomez, DPM 175 [facility] [address] [place] [address] Cellulitis of left foot (Primary Dx); Diabetic mononeuropathy simplex ([facility] V24, [facility] V28); Ingrowing nail; Corns and callosities; Dermatophytosis of nail; Pain in toe of left foot; Hammer toe of left foot; Acquired hammer toe of right foot; Metatarsalgia of both feet; Type 2 diabetes mellitus with hyperglycemia, with long-term current use of insulin ([facility] V24, [facility] V28); Pain in toe of right foot Social History Tobacco Use Types Packs/Day Years Used Date Smoking Tobacco: Never Smokeless Tobacco: Never Alcohol Use Standard Drinks/Week Comments Yes 0 [...] on file documented as of this encounter Ordered Prescriptions Prescription Sig Dispense Quantity Refills Last Filled Start Date End Date ammonium lactate (AmLactin) 12 % lotion Apply topically if needed for dry skin. 400 g 06/25/2025 lidocaine (LIDODERM) 5 % patch Apply 1 patch topically 1 (one) time each day. Remove & discard patch within 12 hours or as directed by . 30 each 2 06/25/2025 6 documented in this encounter Progress Notes * Guy Gomez DPM - 06/25/2025 10:30 AM ESTAddended by: GUY GOMEZ on: 06/25/2025 12:26 PM Modules accepted: Level of Service * Guy Gomez DPM - 06/25/2025 10:30 AM EST Last PCP visit:Referring MD: Dr Rebekah Fu MD 04/16/2025 John Torres is a 54 y.o. year old male presents complaining of numbness burning tingling to his feet with radiating pain is burning and hot on top of his feet worsening pain in the balls of both feet right worse than left notices he has a callus buildup does not he is a diabetic endorses worsening numbness and tingling elongated painful thickened nails declines recent ulcerations or breaks in skin reports getting worsening ingrowing nails of his left foot he states that he really feels foot but notes the toes been more red and swollen irritated the last several weeks ROS: GENERAL: Pt denies nausea, fever, vomiting, chills, or shortness of breath. Pt in NAD. CARDIOLOGY: pt denies chest pain, palpitations LUNGS: pt denies shortness of breath MUSCULOSKELETAL: See HPI, otherwise no joint pain or swelling, back pain, or muscle pain. SKIN: see HPI, otherwise no lesions, rash or itching NEURO: No persistent headache, weakness or numbness The remainder of the review of systems is noncontributory PAST MEDICAL HISTORY: There is no problem list on file for this patient. SOCIAL HISTORY: Social History Tobacco Use Smoking status: Never Smokeless tobacco: Never Substance Use Topics Alcohol use: Yes ACTIVE MEDICATIONS: Outpatient Medications Marked as Taking for the 06/25/25 encounter (Office Visit) with Guy Gomez DPM Medication Sig Dispense Refill aspirin 81 mg EC tablet Take 1 tablet (81 mg total) by mouth 1 (one) time each day. bisacodyL (DULCOLAX) 5 mg EC tablet Take 2 tablets by mouth right before beginning bowel prep. See instructions provided by the office 2 tablet 0 blood sugar diagnostic (FreeStyle Lite Strips) test strip USE TO CHECK BLOOD GLUCOSE LEVELS 3 TIMESA DAY blood-glucose meter kit Use to test blood glucose twice daily. (Freestyle Lite) brimonidine (ALPHAGAN) 0.2 % ophthalmic solution Administer 1 drop into both eyes 3 (three) times aday. calcium-vitamin D3-vitamin K 500 mg-200 unit -40 mcg tablet,chewable Chew 1 tablet 1 (one) time each day. carbidopa-levodopa (SINEMET) 25-100 mg per tablet Take 2 tablets by mouth 6 (six) times a day. carvediloL (COREG) 25 mg tablet Take 1 tablet (25 mg total) by mouth 2 times daily. cholecalciferol (VITAMIN D-3) 50 mcg (2,000 unit) capsule Take 1 capsule (2,000 Units total) by mouth daily. dapagliflozin propanediol (Farxiga) 10 mg tablet Take 1 tablet (10 mg total) by mouth 1 (one) time each day. diclofenac (VOLTAREN) 1 % topical gel APPLY 2 G TOPICALLY 2 (TWO) TIMES DAILY. dorzolamide-timoloL (COSOPT) 22.3-6.8 mg/mL ophthalmic solution Administer 1 drop into both eyes 2 (two) times a day. freestyle 28 gauge lancets Use to check BG TID DX E11.49 Freestyle Lancets gabapentin (NEURONTIN) 300 mg capsule Take 1 capsule (300 mg total) by mouth every 8 (eight) hours. insulin lispro (HumaLOG KwikPen) 100 unit/mL injection pen Inject under the skin 3 (three) times a day before meals. Lantus Solostar U-100 Insulin 100 unit/mL (3 mL) injection pen Inject 44-46 Units under the skin atbedtime. loratadine (CLARITIN) 10 mg tablet 1 tablet (10 mg total) if needed. Ozempic 0.25 mg or 0.5 mg (2 mg/3 mL) injection pen Inject 0.25 mg under the skin every 7 (seven) days. polyethylene glycol (Golytely) 236-22.74-6.74 -5.86 gram solution Take 4L by mouth once for one dose. May substitue any PEG. Starting at 6PM the night before your procedure drink 1 8oz glasses at your own pace until you complete half of the gallon. Finish 2nd half of the gallon 5 hours before your procedure. 4000 mL 0 rOPINIRole XL (REQUIP XL) 6 mg 24 hr tablet Take 1 tablet (6 mg total) by mouth 1 (one) time each day in the morning. rosuvastatin (CRESTOR) 20 mg tablet Take 1 tablet (20 mg total) by mouth 1 (one) time each day. spironolactone (ALDACTONE) 25 mg tablet Take 0.5 tablets (12.5 mg total) by mouth 1 (one) time eachday. triamcinolone (KENALOG) 0.1 % cream APPLY TO LEGS TWICE DAILY FOR 2 WEEKS, THEN DO NOT USE FOR FOLLOWING WEEK. REPEAT COURSE NEEDED Authorized by: LAURIE WILSON trihexyphenidyL (ARTANE) 2 mg tablet Take 0.5 tablets (1 mg total) by mouth 2 (two) times a day with meals. valsartan (DIOVAN) 40 mg tablet Take 1 tablet (40 mg total) by mouth at bedtime. ALLERGIES: Allergies Allergen Reactions Sitagliptin c/o: myalgia has improved after stopping medication c/o: myalgia has improved after stopping medication c/o: myalgia has improved after stopping medication c/o: myalgia has improved after stopping medication PHYSICAL EXAM: Visit Vitals Smoking Status Never PODIATRIC EXAMINATION: GENERAL: Patient appears well nourished, with NAD. VASCULAR: Dorsalis pedis pulses are 0/4 bilaterally and Posterior tibial pulses are 2/4 bilaterally. Capillary filling time within normal limits the digits. No pallor on elevation or rubor on dependency. No varicosities. Denies rest pain or claudication pain. NEUROLOGICAL: Sharp/dull sensation diminished, protective sensation 7/10 with Ipswitch touch test bilaterally, vibratory sensation intact to the tibial tuberosity. ORTHOPEDIC: Good muscle strength 5/5 of all flexors and extensors. Dorsi flexion of ankle ,10 degrees, plantar flexion WNL. No muscle atrophy. DERMATOLOGICAL:. Onycholysis of nail plate of left great toe with embedded nail plate with localized abscess tissue formation medial lateral nail fold superficial with redness and irritation of the left great toe Toenails: Left Toenail(s) 1-5: subungual debris, discoloration, hypertrophic, elongation, mycotic appearance, onychomycosis, pain and thickening. Right Toenail(s) 1-5: subungual debris, discoloration, hypertrophic, elongation, mycotic appearance, onychomycosis, pain and thickening. Annular scaling bilateral feet moccasin distribution Skin thinning texture shiny appearance diffuse hyperpigmentation bilaterally pedal hair decreased Hyperkeratoses ball of right foot subgreat first metatarsal and subsecond metatarsal right foot BIOMECHANICS: Ankle ROM WNL, STJ ROM wnl, MTJ ROM wnl, 1st MPJ ROM wnl. Hammertoe contractures 2 through 5 bilateral fat pad atrophy symmetric bilateral negative Jonny'stest IMAGING: IMPRESSION: 1. Cellulitis of left foot 2. Diabetic mononeuropathy simplex ([facility] V24, [facility] V28) 3. Ingrowing nail 4. Abscess of left foot 5. Corns and callosities 6. Dermatophytosis of nail 7. Pain in toe of left foot 8. Hammer toe of left foot 9. Acquired hammer toe of right foot 10. Metatarsalgia of both feet 11. Type 2 diabetes mellitus with hyperglycemia, with long-term current use of insulin ([facility] V24, [facility] V28) 12. Pain in toe of right foot PLAN: Discussed with patient any redness or swelling worsens to call office for oral antibiotic Continue with compression therapy bilaterally Discussed possibly for some steroid topically for lipodermatosclerosis of dermatitis flares Refill sent to pharmacy of lidocaine patches bilaterally Refill sent to pharmacy for ammonium lactate kin Reviewed fat pad atrophy with patient and metatarsalgia both feet causing contact nerve irritation of plantar digital nerves discussed that likely with offloading padding should resolve this condition I would encourage him to continue transverse arch support metatarsal padding secondary to fat pad atrophy and contractures of digits due to sarcopenia Discussed follow-up in 2 to 3 weeks recommend bacitracin topically daily after ingrown nail portionremoved with drainage of abscess locally left foot Debridement of mycotic toenails 6-10: Verbal informed consent was obtained from the patient. Greater than 6 nails were aseptically debrided in thickness and length with nail nippers Abscess tissue was removed with debridement of nail plate tracking into dermal tissues Hyperkeratotic tissue debrided pared with a number #15 scalpel blade x2 Gyu Gomez DPM documented in this encounter Plan of Treatment Upcoming Encounters Date Type Department Care Team (Late st Contact Info) Description 09/23/2025 1:00 PM EDT Office Visit Orthopedic Surgery - [place] [address] [phone] Guy Gomez DPM [address] [phone] documented as of this encounter Visit Diagnoses Diagnosis Cellulitis of left foot- Primary Diabetic mononeuropathy simplex ([facility] V24, [facility] V28) Type II or unspecified type diabetes mellitus with neurological manifestations, not stated as uncontrolled Ingrowing nail Corns and callosities Dermatophytosis of nail Pain in toe of left foot Pain in soft tissues of limb Hammer toe of left foot Acquired hammer toe of right foot Metatarsalgia of both feet Type 2 diabetes mellitus with hyperglycemia, with long-term current use of insulin ([facility] V24, [facility] V28) Pain in toe of right foot Pain in soft tissues of limb documented in this encounter Care Teams Process Improvement Analyst Relationship Specialty Start Date End Date Alva Ruiz PA [address] [place] [address] PCP - General 08/30/23 documented as of this encounter
--- OUTSIDE RECORDS SUMMARY | 2025-06-26 09:12 | XMS_ITS | Encounter Summary ---
Author Organization [facility], Address [address] [place] [address] Phone Care Team Providers Care Senior Animator Name Role Phone Alva Ruiz PA-C Primary Care Provider [phone] Encounter Details Date Type Department Care Team (Late st Contact Info) Description 08/10/2023 Documentation Only [facility] [address] [place] [address] [place] [address] Social History Tobacco Use Types [...] Care Team (Late st Contact Info) Description 07/11/2025 4:30 PM EST Office Visit [facility] [address] [place] [phone] Carmen Oliver MD [address] [place] [phone] documented as of this encounter Visit Diagnoses Not on filedocumented in this encounter Care Teams Senior Animator Relationship Specialty Start Date End Date Alva Ruiz PA-C [address] [place] [address] PCP - General Physician Communications Supervisor 02/16/22 documented as of this encounter
--- OUTSIDE RECORDS SUMMARY | 2025-06-26 09:12 | XMS_ITS | Clinical Summary ---
Author Organization [facility] Address [address] [facility] [address] [place] [phone] Phone Care Team Providers Care Promotions Assistant Name Role Phone Alva Ruiz PA-C [...] topic Medical Devices Not on file Insurance [facility] DIRECT [employer] [address] [place] [address] [place] [address] [place] [address] [employer] Care Teams Promotions Assistant Relationship Specialty Start Date End Date Alva Ruiz PA-C PCP - General Physician Referral Management Liaison 01/25/24 Additional Source Comments The information contained in this document represents components of the legal health record. It is not the complete legal health record.[facility]
--- OUTSIDE RECORDS SUMMARY | 2025-06-26 09:12 | XMS_ITS | Encounter Summary ---
Author Organization [facility] [place], Address [address] [place] [address] Phone Care Team Providers Care Mexican Food Maker Hand Name Role Phone Alva Ruiz PA-C Primary Care Provider [phone] Encounter Details Date Type Department Care Team (Late st Contact Info) Description 08/16/2024 Documentation Only [facility] [address] [place] [address] [place] [address] Social History Tobacco Use Types [...] Visit [facility] [address] [place] [phone] Carmen Oliver MD [address] [place] [phone] documented as of this encounter Visit Diagnoses Not on filedocumented in this encounter Care Teams Mexican Food Maker Hand Relationship Specialty Start Date End Date Alva Ruiz PA-C [address] [place] [address] PCP - General Physician Outbound Call Center Representative 02/16/22 documented as of this encounter
--- OUTSIDE RECORDS SUMMARY | 2025-06-26 09:12 | XMS_ITS | Encounter Summary ---
Author Organization [facility], Address [address] [place] [address] Phone Care Team Providers Care Slab Off Mill Tender Name Role Phone Alva Ruiz PA-C Primary Care Provider [phone] Encounter Details Date Type Department Care Team (Late st Contact Info) Description 08/15/2023 Documentation Only [facility] [address] [place] [phone] [place] [address] Social History Tobacco Use Types [...] Visit [facility] [address] [phone] Carmen Oliver MD [address] [place] [phone] documented as of this encounter Visit Diagnoses Not on filedocumented in this encounter Care Teams Slab Off Mill Tender Relationship Specialty Start Date End Date Alva Ruiz PA-C [address] [place] [address] PCP - General Physician Parking Patroller 02/16/22 documented as of this encounter
--- OUTSIDE RECORDS SUMMARY | 2025-06-26 09:12 | XMS_ITS | Encounter Summary ---
Author Organization [facility] [place], Address [address] [place] [address] Phone Care Team Providers Care Neurology Technologist Name Role Phone Alva Ruiz PA-C Primary Care Provider [phone] Encounter Details Date Type Department Care Team (Late st Contact Info) Description 08/11/2023 Documentation Only [facility] [address] [place] [phone] [place] [address] Social History Tobacco Use Types [...] [facility] [address] [place] [phone] Caremn Oliver MD [address] [place] [phone] documented as of this encounter Visit Diagnoses Not on filedocumented in this encounter Care Teams Neurology Technologist Relationship Specialty Start Date End Date Alva Ruiz PA-C [address] [place] [address] PCP - General Physician Raisin Washer 02/16/22 documented as of this encounter
--- OUTSIDE RECORDS SUMMARY | 2025-06-26 09:12 | XMS_ITS | Encounter Summary ---
Author Organization [facility] [place], Address [address] [place] [address] Phone Care Team Providers Care Gas Operation Manager Name Role Phone Alva Ruiz PA-C Primary Care Provider [phone] Encounter Details Date Type Department Care Team (Late st Contact Info) Description 08/11/2023 Documentation Only [facility] [address] [place] [phone] [place] [address] Social History Tobacco Use Types [...] Visit [facility] [address] [place] [phone] Carmen Oliver MD [address] [place] [phone] documented as of this encounter Visit Diagnoses Not on filedocumented in this encounter Care Teams Gas Operation Manager Relationship Specialty Start Date End Date Alva Ruiz PA-C [address] [place] [address] PCP - General Physician Personnel Adviser 02/16/22 documented as of this encounter
--- OUTSIDE RECORDS SUMMARY | 2025-06-26 09:12 | XMS_ITS | Encounter Summary ---
Author Organization [facility] [place], Address [address] [place] [address] Phone Care Team Providers Care Skimmer Name Role Phone Alva Ruiz PA-C Primary Care Provider [phone] Encounter Details Date Type Department Care Team (Late st Contact Info) Description 08/16/2024 Documentation Only [facility] [address] [place] [address] [place] [address] Social History Tobacco Use Types [...] Visit [facility] [address] [place] [phone] Carmen Oliver MD [address] [place] [phone] documented as of this encounter Visit Diagnoses Not on filedocumented in this encounter Care Teams Skimmer Relationship Specialty Start Date End Date Alva Ruiz PA-C [address] [place] [address] PCP - General Physician Catering Assistant 02/16/22 documented as of this encounter
--- OUTSIDE RECORDS SUMMARY | 2025-06-26 09:12 | XMS_ITS | Encounter Summary ---
Author Organization [facility] [place], Address [address] [place] [address] Phone Care Team Providers Care Solar Thermal Technician Name Role Phone Alva Ruiz PA-C Primary Care Provider [phone] Encounter Details Date Type Department Care Team (Late st Contact Info) Description 01/30/2025 Documentation Only [facility] [address] [place] [address] [place] [address] Social History Tobacco Use Types [...] Visit [facility] [address] [place] [phone] Carmen Oliver MD [address] [place] [phone] documented as of this encounter Visit Diagnoses Not on filedocumented in this encounter Care Teams Solar Thermal Technician Relationship Specialty Start Date End Date Alva Ruiz PA-C [address] [place] [address] PCP - General Physician Compo Conveyor Operator 02/16/22 documented as of this encounter
--- OUTSIDE RECORDS SUMMARY | 2025-06-26 09:12 | XMS_ITS | Encounter Summary ---
Author Organization [facility] [place], Address [address] [place] [address] Phone Care Team Providers Care Health And Social Care Teacher Name Role Phone Alva Ruiz PA-C Primary Care Provider [phone] Encounter Details Date Type Department Care Team (Late st Contact Info) Description 08/10/2023 Documentation Only [facility] [address] [place] [address] [place] [address] Social History Tobacco Use Types [...] Visit [facility] [address] [place] [phone] Carmen Oliver MD [address] [place] [phone] documented as of this encounter Visit Diagnoses Not on filedocumented in this encounter Care Teams Health And Social Care Teacher Relationship Specialty Start Date End Date Alva Ruiz PA-C [address] [place] [address] PCP - General Physician Dress Marker 02/16/22 documented as of this encounter
--- OUTSIDE RECORDS SUMMARY | 2025-06-26 09:12 | XMS_ITS | Encounter Summary ---
Author Organization [facility] [place], Address [address] [place] [address] Phone Care Team Providers Care Cupola Hoist Operator Name Role Phone Alva Ruiz PA-C Primary Care Provider [phone] Encounter Details Date Type Department Care Team (Late st Contact Info) Description 12/27/2024 Documentation Only [facility] [address] [place] [address] [place] [address] Social History Tobacco Use Types [...] Visit [facility] [address] [place] [phone] Carmen Oliver MD [address] [place] [phone] documented as of this encounter Visit Diagnoses Not on filedocumented in this encounter Care Teams Cupola Hoist Operator Relationship Specialty Start Date End Date Alva Ruiz PA-C [address] [place] [address] PCP - General Physician Retail Support Associate 02/16/22 documented as of this encounter
--- OUTSIDE RECORDS SUMMARY | 2025-06-26 09:12 | XMS_ITS | Encounter Summary ---
Author Organization [facility] [place], Address [address] [place] [address] Phone Care Team Providers Care Suspension Cord Tier Name Role Phone Alva Ruiz PA-C Primary Care Provider [phone] Encounter Details Date Type Department Care Team (Late st Contact Info) Description 05/22/2025 Documentation Only [facility] [address] [place] [address] [place] [address] Social History Tobacco Use Types [...] Visit [facility] [address] [place] [phone] Carmen Oliver MD [address] [place] [phone] documented as of this encounter Visit Diagnoses Not on filedocumented in this encounter Care Teams Suspension Cord Tier Relationship Specialty Start Date End Date Alva Ruiz PA-C [address] [place] [address] PCP - General Physician Irrigation Flume Layer 02/16/22 documented as of this encounter
--- OUTSIDE RECORDS SUMMARY | 2025-06-26 09:12 | XMS_ITS | Clinical Summary ---
Author Organization [facility] Address [address] [place] [address] Phone Care Team Providers Care Reeling Machine Setup Operator Name Role Phone Alva Ruiz Primary Care Provider [phone] Allergies Active Allergy Reactions Criticality Noted Date [...] mouth every 8 (eight) hours. 5 Active lidocaine (LIDODERM) 5 % patch Apply 1 patch topically 1 (one) time each day. Remove & discard patch within 12 hours or as directed by . 30 each 2 5 09/24/19 Active ammonium lactate (AmLactin) 12 % lotion Apply topically if needed for dry skin. 400 g 5 06/25/20 Active Encounters Date Type Department Care Team Description 06/25/2025 10:30 AM EST Office Visit Orthopedic Surgery [facility] [address] [phone] Guy Gomez DPM Cellulitis of left foot (Primary Dx); Diabetic mononeuropathy simplex ([facility] V24, CMS/[facility] V28); Ingrowing nail; Corns and callosities; Dermatophytosis of nail; Pain in toe of left foot; Hammer toe of left foot; Acquired hammer toe of right foot; Metatarsalgia of both feet; Type 2 diabetes mellitus with hyperglycemia, with long-term current use of insulin (CMS/[facility] V24, CMS/[facility] V28); Pain in toe of right foot 04/25/2025 3:15 PM EDT Office Visit Orthopedic Surgery [facility] [address] [phone] Guy Gomez DPM Metatarsalgia of both feet (Primary Dx); Peripheral venous insufficiency; Diabetic mononeuropathy simplex (CMS/HCC V24, CMS/HCC V28); Dermatophytosis of nail; Corns and callosities; Pain in toe of left foot; Pain in toe of right foot; Type 2 diabetes mellitus with hyperglycemia, with long-term current use of insulin ([facility] V24, [facility] V28); Hammer toe of left foot; Acquired hammer toe of right foot from Last 3 Months Immunizations Immunization Administration Dates Next Due Moderna SARS-CoV-2 COVID-19, mRNA, LNP-S, preservative free 04/09/2022 Surgical History Surgery Date Site/Laterality Comments COLOSTOMY Medical History Medical History Date Comments Parkinson disease ([facility] V24, [facility] V28) Diabetes mellitus ([facility] V24, [facility] V28) Hyperlipidemia Hypertension Glaucoma Sleep apnea Loss of vision Sarcoidosis Katie's disease ([facility] V24, [facility] V28) Vitamin D deficiency Cataracts, bilateral Anal fissure Pneumothorax CKD (chronic kidney disease), stage III ([facility] V24, [facility] V28) Pneumonia CHF (congestive heart failure) ([facility] V24, [facility] V28) NSTEMI (non-ST elevated myoc ardial infarction) ([facility] V24, [facility] V28) Nephrolithiasis Restless leg syndrome Cardiomyopathy ([facility] V24, [facility] V28) Obesity Covid-19 Social History Tobacco Use [...] PM EDT Office Visit Orthopedic Surgery - [place] [address] [phone] Guy Gomez, DPM [address] [phone] Health Maintenance Due Date Last Done Comments [...] 3-dose series) 09/26/2024 08/01/2024, 06/25/2019 COVID-19 Vaccine ( - 2024- season) 2025 04/09/2022, 08/24/2021, 07/17/2021, Additional history exists Influenza Vaccine (#1) 2025 , 08/25/2023, 06/23/2022, Additional history exists Diabetes: Annual GFR (Glomerular Filtration Rate) 04/23/2025 04/23/2024 Hypertension/CHF/CAD Annual BMP Blood Test 04/23/2025 04/23/2024 Diabetes: Blood Sugar Control Test (HGBA1C) 10/29/2025 04/30/2025, 04/30/2025, 04/16/2025, Additional history exists Diabetes: Annual Urine Albumin-Creatinine Ratio (uACR) 05/01/2026 05/01/2025, 04/30/2025, 01/09/2025, Additional history exists Colorectal Cancer Screening: Colonoscopy [...] Maintenance Results * COLONOSCOPY Anesthesia - MAC; [facility] ENDOSCOPY (12/05/2024 2:07 PM [...] Status: Finalized Attending MD: Ansley Nguyen DO, [id number] Procedure Date No Time: 12/05/2024 Procedure: Colonoscopy [...] the physician, the nurse, the anesthesiologist, the medical director and the mri technician in the pre-procedure area in the [...] retroflexion views. Procedure Code(s): --- Professional --- 89434, Colonoscopy, flexible; with removal of tumor(s), polyp(s), or other lesion(s) by snare technique Diagnosis Code(s): --- Professional --- D12.5, Benign neoplasm of sigmoid colon K64.9, Unspecified hemorrhoids Z12.11, Encounter for screening for malignant neoplasm of colon CPT copyright 2020 [employer]. All rights reserved. The codes documented in this report are preliminary and upon coder operator review may be revised to meet current compliance requirements. ANSLEY Nguyen DO 12/05/2024 2:04:22 PM This report has been signed electronically.Ansley Nguyen DO Number of Addenda: 0 Note Initiated On: 12/05/2024 1:46 PM Scope Withdrawal Time: 0 hours 8 minutes 47 seconds Scope In: 1:52:03 PM Scope Out: 2:03:09 PM Endoscopy Department at [facility] - [address] [place] [phone] Procedure Note Ansley Nguyen DO - 12/05/2024 [facility] GI Patient Name: Laverne Torres Procedure Date: 12/05/2024 1:46 PM Date of : 1970 Age: 54 Gender: Male Note Status: Finalized Attending MD: Ansley Nguyen DO, [id number] Procedure Date No Time: 12/05/2024 Procedure: Colonoscopy [...] the physician, the nurse, the anesthesiologist, the medical director and thetechnician in the pre-procedure area in [...] retroflexion views. Procedure Code(s): --- Professional --- 27996, Colonoscopy, flexible; with removal of tumor(s), polyp(s), or other lesion(s) by snare technique Diagnosis Code(s): --- Professional --- D12.5, Benign neoplasm of sigmoid colon K64.9, Unspecified hemorrhoids Z12.11, Encounter for screening for malignantneoplasm of colon CPT copyright 2020 [employer]. All rights reserved. The codes documented in this report are preliminary and upon coder operator reviewmay be revised to meet current compliance requirements. ANSLEY Nguyen DO 12/05/2024 2:04:22 PM This report has been signed electronically.Ansley Nguyen DO Number of Addenda: 0 Note Initiated On: 12/05/2024 1:46 PM Scope Withdrawal Time: 0 hours 8 minutes 47 seconds Scope In: 1:52:03 PM Scope Out: 2:03:09 PM Endoscopy Department at [facility] - [address] [place] [phone] IMPRESSION: - Hemorrhoids found on perianal exam. - One 12 mm polyp in the sigmoid colon, removedwith a hot snare. Resected and retrieved. - The examination was otherwise normal on directand retroflexion views. Recommendation: - Discharge patient to home. - High fiber diet. - Continue present medications. - Await pathology results. - Repeat colonoscopy for surveillance based on pathology results. Ansley Nguyen DO GI~PROCEDURE ORDERABLES Final Re sult from Last 3 Months or Most Recently Relevant to Health Maintenance Insurance MEDICAID - [place] Care Teams Reeling Machine Setup Operator Relationship Specialty Start Date End Date Alva Ruiz PA [address] [place] [address] PCP - General 08/30/23
--- OUTSIDE RECORDS SUMMARY | 2025-06-26 09:12 | XMS_ITS | Clinical Summary ---
Author Organization [facility] [place], Address [address] [place] [address] [place] [address] Phone Care Team Providers Care Sign Fabricator Name Role Phone Alva Ruiz PA-C Primary Care Provider Allergies Active Allergy Reactions Criticality Noted Date Comments Sitagliptin 02/06/2020 c/o: myalgia has improved after stopping medication Medications cholecalciferol (VITAMIN D-3) 25 MCG (1000 UT) capsule 06/17/20 19 Active Multiple Vitamins-Minera ls (MULTIVITAMIN ADULT PO) Take 1 capsule by mouth 1 (one) time each day Active brimonidine (ALPHAGAN) 0.2 % ophthalmic solution Administer 1 drop into both eyes in the morning and 1 drop in the evening. 06/03/20 19 Active carbidopa-levod opa (SINEMET) 25-100 MG per tablet Take 2 tablets by mouth in the morning and 2 tablets in the evening and 2 tablets before bedtime. 07/06/19 20 Active carvedilol (COREG) 12.5 MG tablet Take 12.5 mg by mouth in the morning and 12.5 mg in the evening. 06/08/20 19 Active dorzolamide-maritza olol (COSOPT) 22.3-6.8 MG/ML ophthalmic solution Administer 1 drop into both eyes at bed time 06/03/20 19 Active gabapentin (NEURONTIN) 100 MG capsule Take 100 mg by mouth in the morning and 100 mg in the evening and 100 mg before bedtime. 06/05/20 19 Active Melatonin 5 MG tablet Take 5 mg by mouth at bed time 06/05/20 19 Active predniSONE (DELTASONE) 10 MG tablet 09/02/19 19 Active trihexyphenidyl (ARTANE) 2 MG tablet Take 2 mg by mouth in the morning and 2 mg in the evening. 06/08/20 19 Active aspirin (ST HUGO) 81 MG EC tablet Take 81 mg by mouth 1 (one) time each day Active sulfamethoxazol e-trimethoprim 800-160 MG per tablet Take 1 tablet [...] mouth 1 (one) time each day Active sacubitril-vals chris (Entresto) 24-26 MG per tablet Take 1 tablet by mouth in the morning and 1 tablet in the evening. Active senna (SENOKOT) 8.6 MG tablet Take 1 tablet by mouth 1 (one) time each day Active chlorthalidone 25 MG tablet Take 1 tablet (25 mg total) by mouth 1 (one) time each day 30 tablet 11 08/23/19 24 Active Semaglutide,0.2 5 or 0.5MG/DOS, (Ozempic, 0.25 or 0.5 MG/DOSE,) 2 MG/3ML solution pen-injector Inject 0.25 mg under the skin per week Dx code e11.21 3 mL 3 05/21/20 24 Active Dapagliflozin Propanediol 10 MG tabletIndicatio ns:Stage 3b chronic kidney disease (HCC),Proteinur ia, not otherwise specified,Type 2 diabetes mellitus with diabetic chronic kidney disease (HCC),Sarcoidos is of other site,Hypertensi on Take 10 mg by mouth 1 (one) time each day in the morning 30 tablet 1 08/16/19 25 Active Continuous Glucose Sensor (FreeStyle Michael 3 Plus Sensor) misc 1 Device in the morning and 1 Device in the evening and 1 Device before bedtime. Use 1 sensor to check blood sugars three times daily dx code e11.21. 2 each 5 06/05/20 25 Active insulin glargine (Lantus SoloStar) 100 UNIT/ML injection Inject 15 Units under the skin every night Dx code e11.21 15 mL 5 06/05/20 25 026 Active insulin glargine (LANTUS) 100 UNIT/ML injection Inject 25 Units under the skin every night 08/28/19 20 025 Discontinued Active Problems Problem Noted Date Diagnosed Date Stage 3a chronic kidney disease 08/15/2023 Congestive heart failure 08/11/2023 Overview (08/11/2023): with reduced ejection fraction Dyslipidemia 08/11/2023 Nephrolithiasis 08/11/2023 Proteinuria 08/11/2023 Type 2 diabetes mellitus 08/11/2023 Overview (08/11/2023): with diabetic neuropathy Restless leg syndrome 08/11/2023 Right flank pain 08/11/2023 Sarcoidosis 08/08/2019 Hypertension 08/08/2019 Encounters Date Type Department Care Team Description 06/05/2025 1:00 PM EST Clinical Support [facility] [address] [place] [address] Archana Veloz 06/05/2025 Orders Only [facility] [address] [place] [address] Daniela Ricketts [facility] 05/22/2025 Documentation Only [facility] [address] [place] [address] 05/02/2025 2:30 PM EDT Office Visit [facility] [address] [place] [address] Carmen Oliver MD Chronic kidney disease, stage 4 (severe) ([facility]) (Primary Dx); Proteinuria, not otherwise specified; Type 2 diabetes mellitus with diabetic chronic kidney disease, not otherwise specified (HCC); Hypertension; Sarcoidosis of other site 05/01/2025 1:30 PM EDT Telemedicine [facility] [address] [place] [address] from Last 3 Months Immunizations Immunization Administration [...] Visit [facility] [place], [address] [place] [address] Carmen Oliver MD [address] [place] [address] Health Maintenance Due Date Last Done [...] Creatinine, Ur 84.1 Not Estab. mg/dL [facility] Albumin, Urine 1,562.0 Not Estab. ug/mL [facility] Comment: Results confirmed on dilution. Albumin/Creatin ine Ratio 1,857(H) 0 - 29 mg/g creat [facility] Comment: Normal: 0 - 29 Moderately increased: 30 - 300 Severely increased: >300 Urine Urine specimen obtained by clean catch procedure / Unknown 05/01/2025 12:09 PM EDT 05/01/2025 us Carmen Oliver MD LAB URINE ORDERABLES Final Res ult [facility] [address] [place] [address] * (ABNORMAL) CBC (04/30/2025 12:26 PM EDT) WBC 7.4 3.4 - 10.8 x10E3/uL [facility] RBC 4.46 4.14 - 5.80 x10E6/uL [facility] Hemoglobin 12.5(L) 13.0 - 17.7 g/dL [facility] Hematocrit 38.2 37.5 - 51.0 % [facility] MCV 86 79 - 97 fL [facility] MCH 28.0 26.6 - 33.0 pg [facility] MCHC 32.7 31.5 - 35.7 g/dL [facility] RDW 14.6 11.6 - 15.4 % [facility] Platelets 195 150 - 450 x10E3/uL [facility] Blood Venous blood / Unknown 04/30/2025 12:26 PM EDT 04/30/2025 Titus Melendez MD LAB BLOOD ORDERABLES Final Re sult Performing Organization Address City/[facility]/ZIP Co de Phone Number [facility] [address] [place] [address] * (ABNORMAL) Hemoglobin A1c (04/30/2025 12:26 PM EDT) Hemoglobin A1C 7.3(H) 4.8 - 5.6 % [facility] Comment: Prediabetes: 5.7 - 6.4 Diabetes: >6.4 Glycemic control for adults with diabetes: <7.0 Blood Venous blood / Unknown 04/30/2025 12:26 PM EDT 04/30/2025 Titus Melendez MD LAB BLOOD ORDERABLES Final Re sult Performing Organization Address City/[facility]/ZIP Co de Phone Number [facility] [address] [place] [address] * (ABNORMAL) Renal Function Panel (04/30/2025 12:26 PM EDT) Glucose 142(H) 70 - 99 mg/dL [facility] BUN 38(H) 6 - 24 mg/dL [facility] Creatinine 2.80(H) 0.76 - 1.27 mg/dL [facility] eGFR CKD-EPI CR 2020 26(L) >59 mL/min/1.7 3 [facility] BUN/Creatinine Ratio 14 9 - 20 [facility] Sodium 139 134 - 144 mmol/L [facility] Potassium 5.0 3.5 - 5.2 mmol/L [facility] Chloride 106 96 - 106 mmol/L [facility] Bicarbonate (CO2) 19(L) 20 - 29 mmol/L [facility] Calcium 8.9 8.7 - 10.2 mg/dL [facility] Albumin 4.1 3.8 - 4.9 g/dL [facility] Phosphorus 4.1 2.8 - 4.1 mg/dL [facility] Blood Venous blood / Unknown 04/30/2025 12:26 PM EDT 04/30/2025 us Titus Melendez MD LAB BLOOD ORDERABLES Final Re sult [facility] [address] [place] [address] from Last 3 Months Insurance Medicaid [place] Care Teams Sign Fabricator Relationship Specialty Start Date End Date Alva Ruiz PA-C [address] [place] [address] PCP - General Physician Training Project Manager 02/16/22
--- OUTSIDE RECORDS SUMMARY | 2025-06-26 09:12 | XMS_ITS | Encounter Summary ---
Author Organization [facility] [place], Address [address] [place] [address] Phone Care Team Providers Care Cushion Former Name Role Phone Alva Ruiz PA-C Primary Care Provider [phone] Encounter Details Date Type Department Care Team (Late Contact Info) Description 06/05/2025 Orders Only [facility] [address] [place] [phone] Daniela Ricketts [facility] Social History Tobacco Use Types Packs/Day Years [...] Department Care Team (Late Contact Info) Description 07/11/2025 4:30 PM EST Office Visit [facility] [address] [place] [phone] Carmen Oliver MD [address] [place] [phone] documented as of this encounter Visit Diagnoses Not on filedocumented in this encounter Care Teams Cushion Former Relationship Specialty Start Date End Date Alva Ruiz PA-C [address] [place] [address] PCP - General Physician Audio Visual Collections Coordinator 02/16/22 documented as of this encounter
--- OUTSIDE RECORDS SUMMARY | 2025-06-26 09:12 | XMS_ITS | Encounter Summary ---
Author Organization [facility] [place], Address [address] [place] [address] Phone Care Team Providers Care Customer Operations Representative Name Role Phone Alva Ruiz PA-C Primary Care Provider +1 [phone] Encounter Details Date Type Department Care Team (Late st Contact Info) Description 01/30/2025 Documentation Only [facility] [address] [address] [place] [address] Social History Tobacco Use Types [...] Visit [facility] [address] [address] Carmen Oliver MD [address] [place] [address] documented as of this encounter Visit Diagnoses Not on filedocumented in this encounter Care Teams Customer Operations Representative Relationship Specialty Start Date End Date Alva Ruiz PA-C [address] [place] [address] PCP - General Physician Health Spa Manager 02/16/22 documented as of this encounter
--- OUTSIDE RECORDS SUMMARY | 2025-06-26 09:12 | XMS_ITS | Encounter Summary ---
Author Organization [facility] [place], Address [address] [place] [address] Phone Care Team Providers Care Competitive Shopper Name Role Phone Alva Ruiz PA-C Primary Care Provider +1 [phone] Encounter Details Date Type Department Care Team (Late st Contact Info) Description 08/10/2023 Documentation Only [facility] [address] [place] [address] [place] [address] Social History Tobacco Use Types [...] Visit [facility] [address] [place] [address] Carmen Oliver MD [address] [place] [address] documented as of this encounter Visit Diagnoses Not on filedocumented in this encounter Care Teams Competitive Shopper Relationship Specialty Start Date End Date Alva Ruiz PA-C [address] [place] [address] PCP - General Physician [employer] Officer 02/16/22 documented as of this encounter
--- OUTSIDE RECORDS SUMMARY | 2025-06-26 09:12 | XMS_ITS | Encounter Summary ---
Author Organization [facility] [place], Address [address] [place] [address] Phone Care Team Providers Care Hydroelectric Station Operator Name Role Phone Alva Ruiz PA-C Primary Care Provider [phone] [phone] Encounter Details Date Type Department Care Team (Late st Contact Info) Description 08/16/2024 Documentation Only [facility] [address] [place] [address] [place] [address] Social History Tobacco Use Types [...] Visit [facility] [address] [address] Carmen Oliver MD [address] [place] [address] documented as of this encounter Visit Diagnoses Not on filedocumented in this encounter Care Teams Hydroelectric Station Operator Relationship Specialty Start Date End Date Alva Ruiz PA-C [address] [place] [address] PCP - General Physician Sheet Metal Shop Helper 02/16/22 documented as of this encounter
--- OUTSIDE RECORDS SUMMARY | 2025-06-26 09:12 | XMS_ITS | Clinical Summary ---
Author Organization [employer] Address [address] [place] [address] Care Team Providers Care Manager Title Name Role Phone Unavailable Primary Care Provider [...] topic Meningococcal Vaccine Aged Out No tulio parvene eligible based on patient's age to complete this topic RSV under 20 months Aged Out No longe r eligible based on patient's age to complete this topic Rotavirus Vaccines Aged Out No longer eligible based on patient's age to complete this topic
--- OUTSIDE RECORDS SUMMARY | 2025-06-26 09:12 | XMS_ITS | Encounter Summary ---
Author Organization [facility] [place], Address [address] [place] [address] Phone Care Team Providers Care Hand Coke Drawer Name Role Phone Alva Ruiz PA-C Primary Care Provider +1 [phone] Encounter Details Date Type Department Care Team (Late st Contact Info) Description 01/30/2025 Documentation Only [facility] [address] [place] [address] [place] [address] Social History Tobacco Use Types [...] Visit [facility] [address] [place] [address] Carmen Oliver MD [address] [place] [address] documented as of this encounter Visit Diagnoses Not on filedocumented in this encounter Care Teams Hand Coke Drawer Relationship Specialty Start Date End Date Alva Ruiz PA-C [address] [place] [address] PCP - General Physician Sap Gatherer 02/16/22 documented as of this encounter
--- OUTSIDE RECORDS SUMMARY | 2025-06-26 09:12 | XMS_ITS | Encounter Summary ---
Author Organization [facility] [place], Address [address] [place] [address] Phone Care Team Providers Care Naval Gunfire Spotter Name Role Phone Alva Ruiz PA-C Primary Care Provider [phone] [phone] Encounter Details Date Type Department Care Team (Late st Contact Info) Description 08/25/2023 Documentation Only [facility] [address] [place] [address] [place] [address] Social History Tobacco Use Types [...] Visit [facility] [address] [place] [address] Carmen Oliver MD [address] [place] [address] documented as of this encounter Visit Diagnoses Not on filedocumented in this encounter Care Teams Naval Gunfire Spotter Relationship Specialty Start Date End Date Alva Ruiz PA-C [address] [place] [address] PCP - General Physician Formula Mixer 02/16/22 documented as of this encounter
--- OUTSIDE RECORDS SUMMARY | 2025-06-26 09:13 | XMS_ITS | Encounter Summary ---
Author Organization [facility] [place], Address [address] [place] [address] Phone Care Team Providers Care Permaculture Contractor Name Role Phone Alva Ruiz PA-C Primary Care Provider [phone] [phone] Encounter Details Date Type Department Care Team (Late st Contact Info) Description 11/10/2023 Documentation Only [facility] [address] [place] [address] [place] [address] Social History Tobacco Use Types [...] [facility] [address] [place] [address] Carmen Oliver MD [address] [place] [address] documented as of this encounter Visit Diagnoses Not on filedocumented in this encounter Care Teams Permaculture Contractor Relationship Specialty Start Date End Date Alva Ruiz PA-C [address] [place] [address] PCP - General Physician Food Counter Attendant 02/16/22 documented as of this encounter
--- OUTSIDE RECORDS SUMMARY | 2025-06-26 09:13 | XMS_ITS | Encounter Summary ---
Author Organization [facility] [place], Address [address] [place] [address] Phone Care Team Providers Care Sheet Metal Duct Installer Helper Name Role Phone Alva Ruiz PA-C Primary Care Provider [phone] Encounter Details Date Type Department Care Team (Late st Contact Info) Description 08/16/2024 Documentation Only [facility] [address] [place] [address] [place] [address] Social History Tobacco Use Types [...] Visit [facility] [address] [place] [address] Carmen Oliver MD [address] [place] [address] documented as of this encounter Visit Diagnoses Not on filedocumented in this encounter Care Teams Sheet Metal Duct Installer Helper Relationship Specialty Start Date End Date Alva Ruiz PA-C [address] [place] [address] PCP - General Physician Appraiser Art 02/16/22 documented as of this encounter
--- OUTSIDE RECORDS SUMMARY | 2025-06-26 09:13 | XMS_ITS | Encounter Summary ---
Author Organization [facility] [place], Address [address] [place] [address] Phone Care Team Providers Care Warehouse And Receiving Supervisor Name Role Phone Alva Ruiz PA-C Primary Care Provider [phone] Encounter Details Date Type Department Care Team (Late st Contact Info) Description 02/26/2025 Documentation Only [facility] [address] [place] [address] [place] [address] Social History Tobacco Use Types [...] Visit [facility] [address] [place] [address] Carmen Oliver MD [address] [place] [address] documented as of this encounter Visit Diagnoses Not on filedocumented in this encounter Care Teams Warehouse And Receiving Supervisor Relationship Specialty Start Date End Date Alva Ruiz PA-C [address] [place] [address] PCP - General Physician Inner Diameter Grinder Tool 02/16/22 documented as of this encounter
--- OUTSIDE RECORDS SUMMARY | 2025-06-26 09:13 | XMS_ITS | Encounter Summary ---
Author Organization [facility] [place], Address [address] [place] [address] Phone Care Team Providers Care Building Serviceman Name Role Phone Alva Ruiz PA-C Primary Care Provider [phone] Encounter Details Date Type Department Care Team (Late st Contact Info) Description 10/24/2024 Documentation Only [facility] [address] [place] [address] [place] [address] Social History Tobacco Use Types [...] Visit [facility] [address] [place] [address] Carmen Oliver MD [address] [place] [address] documented as of this encounter Visit Diagnoses Not on filedocumented in this encounter Care Teams Building Serviceman Relationship Specialty Start Date End Date Alva Ruiz PA-C [address] [place] [address] PCP - General Physician Tool Lapper Hand 02/16/22 documented as of this encounter
--- OUTSIDE RECORDS SUMMARY | 2025-06-26 09:13 | XMS_ITS | Encounter Summary ---
Author Organization [facility] Address [address] [place] [address] Phone Care Team Providers Care Bronze Chaser Name Role Phone Alva Ruiz PA-C Primary Care Provider [phone] Encounter Details Date Type Department Care Team (Late Contact Info) Description 12/19/2024 Documentation Only [facility] [address] [place] [address] Deidre Sigala [address] [place] [address] Social History Tobacco Use Types [...] Visit [facility] [address] [place] [address] Carmen Oliver MD [address] [place] [address] documented as of this encounter Visit Diagnoses Not on filedocumented in this encounter Care Teams Bronze Chaser Relationship Specialty Start Date End Date Alva Ruiz PA-C [address] [place] [address] PCP - General Physician Tire Worker 02/16/22 documented as of this encounter
--- OUTSIDE RECORDS SUMMARY | 2025-06-26 09:13 | XMS_ITS | Encounter Summary ---
Author Organization [facility] [place], Address [address] [place] [address] Phone Care Team Providers Care Dry Room Attendant Name Role Phone Alva Ruiz PA-C Primary Care Provider [phone] Encounter Details Date Type Department Care Team (Late st Contact Info) Description 10/17/2023 Documentation Only [facility] [address] [place] [address] [place] [address] Social History Tobacco Use Types [...] [facility] [address] [place] [address] Carmen Oliver MD [address] [place] [address] documented as of this encounter Visit Diagnoses Not on filedocumented in this encounter Care Teams Dry Room Attendant Relationship Specialty Start Date End Date Alva Ruiz PA-C [address] [place] [address] PCP - General Physician Passport Support Manager 02/16/22 documented as of this encounter
--- OUTSIDE RECORDS SUMMARY | 2025-06-26 09:13 | XMS_ITS | Encounter Summary ---
Author Organization [facility] [place], Address [address] [place] [address] Phone Care Team Providers Care Shipping And Receiving Supervisor Name Role Phone Alva Ruiz PA-C Primary Care Provider [phone] Encounter Details Date Type Department Care Team (Late st Contact Info) Description 10/24/2024 Documentation Only [facility] [address] [place] [address] [place] [address] Social History Tobacco Use Types [...] Visit [facility] [address] [place] [address] Carmen Oliver MD [address] [place] [address] documented as of this encounter Visit Diagnoses Not on filedocumented in this encounter Care Teams Shipping And Receiving Supervisor Relationship Specialty Start Date End Date Alva Ruiz PA-C [address] [place] [address] PCP - General Physician Carbide Operator 02/16/22 documented as of this encounter
--- OUTSIDE RECORDS SUMMARY | 2025-06-26 09:13 | XMS_ITS | Encounter Summary ---
Author Organization [facility] [place], Address [address] [place] [address] Phone Care Team Providers Care Cementing Bulk Material Operator Name Role Phone Alva Ruiz PA-C Primary Care Provider [phone] [phone] Encounter Details Date Type Department Care Team (Late st Contact Info) Description 11/10/2023 Documentation Only [facility] [address] [address] [place] [address] Social History Tobacco Use Types [...] Visit [facility] [address] [place] [address] Carmen Oliver MD [address] [place] [address] documented as of this encounter Visit Diagnoses Not on filedocumented in this encounter Care Teams Cementing Bulk Material Operator Relationship Specialty Start Date End Date Alva Ruiz PA-C [address] [place] [address] PCP - General Physician Refueling Ramp Attendant 02/16/22 documented as of this encounter
--- OUTSIDE RECORDS SUMMARY | 2025-06-26 09:13 | XMS_ITS | Encounter Summary ---
Author Organization [facility] [place], Address [address] [place] [address] Phone Care Team Providers Care Commercial Lending Assistant Name Role Phone Alva Ruiz PA-C Primary Care Provider + [phone] Encounter Details Date Type Department Care Team (Late st Contact Info) Description 06/08/2024 Documentation Only [facility] [place], [address] [place] [address] Aliza Johnson Social History Tobacco Use Types [...] Aliza Johnson - 06/08/2024 1:25 PM EST [facility] Luiz Torres is a 53-YO male here today for diabetes education/management. This is the patient???s first visit with the [facility]. TODAY: Luiz Torres came [...] treatment with snacks DIET: B: eggs, toast, Romanian omelet from a diner L: sometimes skips, [...] inspect his feet and to see an custom furrier yearly. --Assessment/Plan: Continue Humalog 14-16 units three [...] mg tablet at bedtime --Follow-up with clinical hospital pharmacy director in 6-7 weeks to discuss diabetes management Patient education was provided via: (X) Verbal instructions (X) Written instructions (X) Patient education handout(s) --Ozempic handout --Hypoglycemia treatment Approximate time spent with the patient: 60 minutes Aliza Johnson PharmD Candidate DANIELA JORDAN, PHARMD, BCPS, [facility] CLINICAL INCUBATOR MACHINE OPERATOR [facility] Cosigned by Daniela Jordan RPh at 06/12/2024 2:14 PM EST documented in this encounter Plan of Treatment Upcoming Encounters Date Type Department Care Team (Late st Contact Info) Description 07/11/2025 4:30 PM EST Office Visit [facility] [place], [address] [place] [address] Carmen Oliver MD [address] [place] [address] documented as of this encounter Visit Diagnoses Not on filedocumented in this encounter Care Teams Commercial Lending Assistant Relationship Specialty Start Date End Date Alva Ruiz PA-C [address] [place] [address] PCP - General Physician Decontaminator 02/16/22 documented as of this encounter
--- OUTSIDE RECORDS SUMMARY | 2025-06-26 09:13 | XMS_ITS | Encounter Summary ---
Author Organization [facility] [place], Address [address] [place] [address] Phone Care Team Providers Care Od Grinder Operator Name Role Phone Alva Ruiz PA-C Primary Care Provider [phone] Encounter Details Date Type Department Care Team (Late st Contact Info) Description 11/10/2023 Documentation Only [facility] [address] [address] [place] [address] Social History Tobacco Use Types [...] And [facility] [address] [address] Carmen Oliver MD [address] [address] documented as of this encounter Visit Diagnoses Not on filedocumented in this encounter Care Teams Od Grinder Operator Relationship Specialty Start Date End Date Alva Ruiz PA-C [address] [place] [address] PCP - General Physician Road Machine Runner 02/16/22 documented as of this encounter
--- OUTSIDE RECORDS SUMMARY | 2025-06-26 09:13 | XMS_ITS | Encounter Summary ---
Author Organization [facility] [place], Address [address] [place] [address] Phone Care Team Providers Care Attorney General Name Role Phone Alva Ruiz PA-C Primary Care Provider [phone] [phone] Encounter Details Date Type Department Care Team (Late st Contact Info) Description 11/02/2024 Documentation Only [facility] [address] [place] [address] [place] [address] Social History Tobacco Use Types [...] Visit [facility] [address] [place] [address] Carmen Oliver MD [address] [place] [address] documented as of this encounter Visit Diagnoses Not on filedocumented in this encounter Care Teams Attorney General Relationship Specialty Start Date End Date Alva Ruiz PA-C [address] [place] [address] PCP - General Physician Seeing Eye Dog Teacher 02/16/22 documented as of this encounter
[2025-06-26 14:37] LABS: MANUAL DIFF FLAG NO
[2025-06-26 14:42] LABS: Hematocrit 43.1 % (42.0-52.0); Hemoglobin 14.4 g/dl (14.0-18.0); Imm Gran Abs Auto 0.03 X10*3/uL (0.00-0.03); Imm Gran Pct Auto 0.4 % (0.0-0.4); Lymphocytes Absolute Auto 0.9 X10*3/uL (1.2-4.9); Mean Corpuscular HGB Conc 33.4 g/dl (31.0-36.0); Mean Corpuscular Hemoglobin 27.9 pg (27.0-33.0); Mean Corpuscular Volume 83.4 fL (80.0-98.0); NRBC Abs Auto 0.000 X10*3/uL (0.0-0.012); NRBC Pct Auto 0.0 /100WBC (0.0-0.2); Platelet Count 233 X10*3/uL (160-400); Red Blood Count 5.17 X10*6/uL (4.60-5.80); White Blood Count 7.6 X10*3/uL (4.8-10.8)
[2025-06-26 14:46] LABS: INTERNATIONAL NORM RATIO 1.1 (0.9-1.1); Prothrombin Time 13.1 SEC (11.2-13.5)
[2025-06-26 15:49] LABS: Parathyroid Hormone Intact 198.3 pg/mL (8.7-77.1)
[2025-06-26 16:09] LABS: Protein/Creatinine Ratio, Ur 2.38 (<0.2); Total Protein Urine Random 369 mg/dL (<12)
[2025-06-26 16:11] LABS: Anion Gap 13 (12-20); Blood Urea Nitrogen 35 mg/dL (9-16); Calcium 9.1 mg/dL (8.4-10.2); Carbon Dioxide 21 mmol/L (22-29); Chloride 108 mmol/L (96-108); Estimated Glomerular Filt Rate 25; Potassium 4.3 mmol/L (3.3-5.1); Sodium 138 mmol/L (135-145)
[2025-06-28 03:30] LABS: HBS Num1 7.39 mIU/mL (0-7.99); HBc Num1 0.27 S/CO (0.00-0.79); HBsAGNum1 0.25 S/CO (0.00-0.99); Hepatitis B Surface Antigen Negative (Negative); ~Hepatitis B Surface Antibody NONREACTIVE (Nonreactive)
== END 2025-06-26 09:08 | disposition home or self-care (01) ==
LOC: HO.HKASLDS 09:07
PROVIDERS: PCP Physician Assistant Medical; Visit Provider Internal Medicine Nephrology
DX: I12.9 Hypertensive chronic kidney disease with stage 1 through stage 4 chronic kidney disease, or unspecified chronic kidney disease (principal); E11.22 Type 2 diabetes mellitus with diabetic chronic kidney disease; N18.4 Chronic kidney disease, stage 4 (severe); D86.9 Sarcoidosis, unspecified; Z01.84 Encounter for antibody response examination; Z11.59 Encounter for screening for other viral diseases
CPT/HCPCS: 80051; 82306; 82310; 82565; 82570; 82784; 83520; 83970; 84156; 84520; 85025; 85610; 86021; 86160; 86225; 86255; 86334; 86335; 86704; 86706; 87340

== ENCOUNTER 2025-07-02 08:45 | Outpatient (REF) | payer MEDICAID, SELFPAY ==
--- NOTE | ~2025-07-02 | US_ITS ---
CLINICAL HISTORY: E11.22 - Type 2 diabetes mellitus with diabetic chronic kidney disease US Renal with Doppler Comparison: None provided Findings: Right kidney normal size and echotexture, 9.3 cm length. No hydronephrosis. Normal color Doppler. Resistive index 0.7. Left kidney normal size and echotexture, 11.2 cm length. No hydronephrosis. Normal color Doppler. Resistive index 0.7. IMPRESSION: 1. Normal kidneys. No sonographic evidence of renal artery stenosis. This document has been electronically signed by: Dirk Toscano MD on 07/03/2025 10:09:45
--- OUTSIDE RECORDS SUMMARY | 2025-07-02 10:36 | XMS_ITS | Encounter Summary ---
Author Organization [facility] [place], Address [address] [place] [address] Phone Care Team Providers Care Terrazzo Polisher Name Role Phone Alva Ruiz PA-C Primary Care Provider [phone] Encounter Details Date Type Department Care Team (Late st Contact Info) Description 01/30/2025 Documentation Only [facility] [address] [address] [place] [address] Social History Tobacco Use Types [...] Visit [facility] [address] [place] [address] Carmen Oliver MD [address] [place] [address] documented as of this encounter Visit Diagnoses Not on filedocumented in this encounter Care Teams Terrazzo Polisher Relationship Specialty Start Date End Date Alva Ruiz PA-C [address] [place] [address] PCP - General Physician Document Management Specialist 02/16/22 documented as of this encounter
--- OUTSIDE RECORDS SUMMARY | 2025-07-02 10:36 | XMS_ITS | Encounter Summary ---
Author Organization [facility] [place], Address [address] [place] [address] Phone Care Team Providers Care Payroll Human Resources Assistant Name Role Phone Alva Ruiz PA-C Primary Care Provider [phone] [phone] Encounter Details Date Type Department Care Team (Late st Contact Info) Description 05/22/2025 Documentation Only [facility] [address] [place] [address] [place] [address] Social History Tobacco Use Types [...] Visit [facility] [address] [place] [address] Carmen Oliver MD [address] [place] [address] documented as of this encounter Visit Diagnoses Not on filedocumented in this encounter Care Teams Payroll Human Resources Assistant Relationship Specialty Start Date End Date Alva Ruiz PA-C [address] [place] [address] PCP - General Physician Marzipan Molder 02/16/22 documented as of this encounter
--- OUTSIDE RECORDS SUMMARY | 2025-07-02 10:36 | XMS_ITS | Clinical Summary ---
Author Organization [facility] Address [address] [place] [address] Phone Care Team Providers Care Manager Consumer Name Role Phone Alva Ruiz Primary Care Provider [phone] Allergies Active Allergy Reactions Criticality Noted Date [...] 10:30 AM EST Office Visit Orthopedic Surgery [facility] [address] [phone] Guy Gomez DPM Cellulitis of left foot (Primary Dx); Diabetic mononeuropathy simplex ([facility] V24, [facility] V28); Ingrowing nail; Corns and callosities; Dermatophytosis of nail; Pain in toe of left foot; Hammer toe of left foot; Acquired hammer toe of right foot; Metatarsalgia of both feet; Type 2 diabetes mellitus with hyperglycemia, with long-term current use of insulin ([facility] V24, CMS/[facility] V28); Pain in toe of right foot 04/25/2025 3:15 PM EDT Office Visit Orthopedic Surgery [facility] [address] [phone] Guy Gomez DPM Metatarsalgia of both feet (Primary Dx); Peripheral venous insufficiency; Diabetic mononeuropathy simplex (CMS/HCC V24, CMS/HCC V28); Dermatophytosis of nail; Corns and callosities; Pain in toe of left foot; Pain in toe of right foot; Type 2 diabetes mellitus with hyperglycemia, with long-term current use of insulin ([facility] [place], [facility] V28); Hammer toe of left foot; Acquired hammer toe of right foot from Last 3 Months Immunizations Immunization Administration Dates Next Due Moderna SARS-CoV-2 COVID-19, mRNA, LNP-S, preservative free 04/09/2022 Surgical History Surgery Date Site/Laterality Comments COLOSTOMY Medical History Medical History Date Comments Parkinson disease ([facility], [facility] V28) Diabetes mellitus ([facility] V[facility], [facility] V28) Hyperlipidemia Hypertension Glaucoma Sleep apnea Loss of vision Sarcoidosis Katie's disease ([facility] V24, [facility] V28) Vitamin D deficiency Cataracts, bilateral Anal fissure Pneumothorax CKD (chronic kidney disease), stage III ([facility] V24, [facility] V28) Pneumonia CHF (congestive heart failure) ([facility] V24, [facility] V28) NSTEMI (non-ST elevated myoc ardial infarction) ([facility] V24, [facility] V28) Nephrolithiasis Restless leg syndrome Cardiomyopathy ([facility] V24, [facility] V28) Obesity Covid-19 Social History [...] PM EDT Office Visit Orthopedic Surgery - [place] [address] [phone] Guy Gomez, DPM [address] [phone] Health Maintenance Due Date Last Done Comments [...] Maintenance Results * COLONOSCOPY Anesthesia - MAC; [facility] ENDOSCOPY (12/05/2024 2:07 PM EDT) Anatomical Region [...] results. Narrative 12/05/2024 2:[address] [facility] GI Patient Name: Laverne Torres Procedure Date: 12/05/2024 1:46 PM Date of : 1970 Age: 54 Gender: Male Note Status: Finalized Attending MD: Ansley Nguyen DO, [id number] Procedure Date No Time: 12/05/2024 Procedure: Colonoscopy [...] the physician, the nurse, the anesthesiologist, the levers lace machine operator and the communication electronic technician in the pre-procedure area in the [...] retroflexion views. Procedure Code(s): --- Professional --- 05150, Colonoscopy, flexible; with removal of tumor(s), polyp(s), or other lesion(s) by snare technique Diagnosis Code(s): --- Professional --- D12.5, Benign neoplasm of sigmoid colon K64.9, Unspecified hemorrhoids Z12.11, Encounter for screening for malignant neoplasm of colon CPT copyright 2020 [employer]. All rights reserved. The codes documented in this report are preliminary and upon creative recruiter review may be revised to meet current compliance requirements. ANSLEY Nguyen DO 12/05/2024 2:04:22 PM This report has been signed electronically.Ansley Nguyen DO Number of Addenda: 0 Note Initiated On: 12/05/2024 1:46 PM Scope Withdrawal Time: 0 hours 8 minutes 47 seconds Scope In: 1:52:03 PM Scope Out: 2:03:09 PM Endoscopy Department at [facility] - [address] [place] [phone] Procedure Note Ansley Nguyen DO - 12/05/2024 [facility] GI Patient Name: Laverne Torres Procedure Date: 12/05/2024 1:46 PM Date of : 1970 Age: 54 Gender: Male Note Status: Finalized Attending MD: Ansley Nguyen DO, [id number] Procedure Date No Time: 12/05/2024 Procedure: Colonoscopy [...] the physician, the nurse, the anesthesiologist, the levers lace machine operator and thetechnician in the pre-procedure area in [...] retroflexion views. Procedure Code(s): --- Professional --- 00537, Colonoscopy, flexible; with removal of tumor(s), polyp(s), or other lesion(s) by snare technique Diagnosis Code(s): --- Professional --- D12.5, Benign neoplasm of sigmoid colon K64.9, Unspecified hemorrhoids Z12.11, Encounter for screening for malignantneoplasm of colon CPT copyright 2020 [employer]. All rights reserved. The codes documented in this report are preliminary and upon creative recruiter reviewmay be revised to meet current compliance requirements. ANSLEY Nguyen DO 12/05/2024 2:04:22 PM This report has been signed electronically.Ansley Nguyen DO Number of Addenda: 0 Note Initiated On: 12/05/2024 1:46 PM Scope Withdrawal Time: 0 hours 8 minutes 47 seconds Scope In: 1:52:03 PM Scope Out: 2:03:09 PM Endoscopy Department at [facility] - [address] [place] [phone] IMPRESSION: - Hemorrhoids found on perianal exam. [...] Maintenance Insurance MEDICAID - [place] Care Teams Manager Consumer Relationship Specialty Start Date End Date Alva Ruiz PA [address] [place] [address] PCP - General 08/30/23
--- OUTSIDE RECORDS SUMMARY | 2025-07-02 10:36 | XMS_ITS | Encounter Summary ---
Author Organization [facility] Address [address] [place] [address] Phone Care Team Providers Care Precision Optics Technician Name Role Phone Alva Ruiz PA-C Primary Care Provider [phone] Encounter Details Date Type Department Care Team (Late Contact Info) Description 12/19/2024 Documentation Only [facility] [address] [place] [address] Deidre Sigala [address] [place] [address] Social History Tobacco Use Types [...] Visit [facility] [address] [place] [address] Carmen Oliver MD [address] [place] [address] documented as of this encounter Visit Diagnoses Not on filedocumented in this encounter Care Teams Precision Optics Technician Relationship Specialty Start Date End Date Alva Ruiz PA-C [address] [place] [address] PCP - General Physician Deboner 02/16/22 documented as of this encounter
--- OUTSIDE RECORDS SUMMARY | 2025-07-02 10:36 | XMS_ITS | Encounter Summary ---
Author Organization [facility] [place], Address [address] [place] [address] Phone Care Team Providers Care Sales Trainer Name Role Phone Alva Ruiz PA-C Primary Care Provider [phone] Encounter Details Date Type Department Care Team (Late st Contact Info) Description 08/10/2023 Documentation Only [facility] [address] [address] [place] [address] Social History Tobacco Use Types [...] Visit [facility] [address] [phone] Carmen Oliver MD [address] [address] documented as of this encounter Visit Diagnoses Not on filedocumented in this encounter Care Teams Sales Trainer Relationship Specialty Start Date End Date Alva Ruiz PA-C [address] [place] [address] PCP - General Physician Thread Trimmer 02/16/22 documented as of this encounter
--- OUTSIDE RECORDS SUMMARY | 2025-07-02 10:36 | XMS_ITS | Encounter Summary ---
Author Organization [facility] [place], Address [address] [place] [address] Phone Care Team Providers Care Production Support Analyst Name Role Phone Alva Ruiz PA-C Primary Care Provider [phone] Encounter Details Date Type Department Care Team (Late st Contact Info) Description 08/16/2024 Documentation Only [facility] [address] [address] [place] [address] Social History Tobacco Use Types [...] Visit [facility] [address] [phone] Carmen Oliver MD [address] [address] documented as of this encounter Visit Diagnoses Not on filedocumented in this encounter Care Teams Production Support Analyst Relationship Specialty Start Date End Date Alva Ruiz PA-C [address] [place] [address] PCP - General Physician Certified Marine Mechanic 02/16/22 documented as of this encounter
--- OUTSIDE RECORDS SUMMARY | 2025-07-02 10:36 | XMS_ITS | Clinical Summary ---
Author Organization [employer] Address [address] [facility] 7[address] [place] [address] Care Team Providers Care Boilermaker Central Steam Plant Name Role Phone Unavailable Primary Care Provider [...]
--- OUTSIDE RECORDS SUMMARY | 2025-07-02 10:36 | XMS_ITS | Clinical Summary ---
Author Organization [facility] [place], Address [address] [place] [address] [place] [address] Phone Care Team Providers Care Portfolio Manager Name Role Phone Alva Ruiz PA-C [...] Support [facility] [address] [place] [address] Archana Veloz 06/05/2025 Orders Only [facility] [address] [place] [address] Daniela Ricketts [facility] 05/22/2025 Documentation Only [facility] [place] [address] [place] [address] 05/02/2025 2:30 PM EDT Office Visit [facility] [place] [address] [place] [address] Carmen Oliver MD Chronic kidney disease, stage 4 (severe) ([facility]) (Primary Dx); Proteinuria, not otherwise specified; Type 2 diabetes mellitus with diabetic chronic kidney disease, not otherwise specified (HCC); Hypertension; Sarcoidosis of other site 05/01/2025 1:30 PM EDT Telemedicine [facility] [address] [place] [address] from Last 3 Months Immunizations Immunization [...] Visit [facility] [place], [address] [place] [address] Carmen Oliver MD [address] [place] [address] Health Maintenance Due Date Last Done [...] Creatinine, Ur 84.1 Not Estab. mg/dL [facility] Albumin, Urine 1,562.0 Not Estab. ug/mL [facility] Comment: Results confirmed on dilution. Albumin/Creatin ine Ratio 1,857(H) 0 - 29 mg/g creat [facility] Comment: Normal: 0 - 29 Moderately increased: 30 - 300 Severely increased: >300 Urine Urine specimen obtained by clean catch procedure / Unknown 05/01/2025 12:09 PM EDT 05/01/2025 us Carmen Oliver MD LAB URINE ORDERABLES Final Res ult [facility] [address] [place] [address] * (ABNORMAL) CBC (04/30/2025 12:26 PM EDT) WBC 7.4 3.4 - 10.8 x10E3/uL [facility] RBC 4.46 4.14 - 5.80 x10E6/uL [facility] Hemoglobin 12.5(L) 13.0 - 17.7 g/dL [facility] Hematocrit 38.2 37.5 - 51.0 % [facility] MCV 86 79 - 97 fL [facility] MCH 28.0 26.6 - 33.0 pg [facility] MCHC 32.7 31.5 - 35.7 g/dL [facility] RDW 14.6 11.6 - 15.4 % [facility] Platelets 195 150 - 450 x10E3/uL [facility] Blood Venous blood / Unknown 04/30/2025 12:26 PM EDT 04/30/2025 Titus Melendez MD LAB BLOOD ORDERABLES Final Re sult Performing Organization Address City/[facility]/ZIP Co de Phone Number [facility] [address] [place] [address] * (ABNORMAL) Hemoglobin A1c (04/30/2025 12:26 PM EDT) Hemoglobin A1C 7.3(H) 4.8 - 5.6 % [facility] Comment: Prediabetes: 5.7 - 6.4 Diabetes: >6.4 Glycemic control for adults with diabetes: <7.0 Blood Venous blood / Unknown 04/30/2025 12:26 PM EDT 04/30/2025 Titus Melendez MD LAB BLOOD ORDERABLES Final Re sult Performing Organization Address City/[facility]/ZIP Co de Phone Number [facility] [address] [place] [address] * (ABNORMAL) Renal Function Panel (04/30/2025 12:26 PM EDT) Glucose 142(H) 70 - 99 mg/dL [facility] BUN 38(H) 6 - 24 mg/dL [facility] Creatinine 2.80(H) 0.76 - 1.27 mg/dL [facility] eGFR CKD-EPI CR 2020 26(L) >59 mL/min/1.7 3 [facility] BUN/Creatinine Ratio 14 9 - 20 [facility] Sodium 139 134 - 144 mmol/L [facility] Potassium 5.0 3.5 - 5.2 mmol/L [facility] Chloride 106 96 - 106 mmol/L [facility] Bicarbonate (CO2) 19(L) 20 - 29 mmol/L [facility] Calcium 8.9 8.7 - 10.2 mg/dL [facility] Albumin 4.1 3.8 - 4.9 g/dL [facility] Phosphorus 4.1 2.8 - 4.1 mg/dL [facility] Blood Venous blood / Unknown 04/30/2025 12:26 PM EDT 04/30/2025 us Titus Melendez MD LAB BLOOD ORDERABLES Final Re sult [facility] [address] [place] [address] from Last 3 Months Insurance Medicaid [place] Care Teams Portfolio Manager Relationship Specialty Start Date End Date Alva Ruiz PA-C [address] [place] [address] PCP - General Physician Barrel Coater 02/16/22
--- OUTSIDE RECORDS SUMMARY | 2025-07-02 10:36 | XMS_ITS | Encounter Summary ---
Author Organization [facility] [place], Address [address] [place] [address] Phone Care Team Providers Care Funeral Home Manager Name Role Phone Alva Ruiz PA-C Primary Care Provider [phone] Encounter Details Date Type Department Care Team (Late st Contact Info) Description 10/17/2023 Documentation Only [facility] [address] [address] [place] [address] Social History Tobacco Use Types [...] [facility] [address] [address] Carmen Oliver MD [address] [address] documented as of this encounter Visit Diagnoses Not on filedocumented in this encounter Care Teams Funeral Home Manager Relationship Specialty Start Date End Date Alva Ruiz PA-C [address] [place] [address] PCP - General Physician Meat Grader 02/16/22 documented as of this encounter
--- OUTSIDE RECORDS SUMMARY | 2025-07-02 10:36 | XMS_ITS | Encounter Summary ---
Author Organization [facility] [place], Address [address] [place] [address] Phone Care Team Providers Care Supervisor Cytology Name Role Phone Alva Ruiz PA-C Primary Care Provider [phone] Encounter Details Date Type Department Care Team (Late st Contact Info) Description 11/10/2023 Documentation Only [facility] [address] [place] [address] [place] [address] Social History Tobacco Use Types [...] Visit [facility] [address] [place] [address] Carmen Oliver MD [address] [place] [address] documented as of this encounter Visit Diagnoses Not on filedocumented in this encounter Care Teams Supervisor Cytology Relationship Specialty Start Date End Date Alva Ruiz PA-C [address] [place] [address] PCP - General Physician Solution Sales Senior Executive 02/16/22 documented as of this encounter
--- OUTSIDE RECORDS SUMMARY | 2025-07-02 10:36 | XMS_ITS | Encounter Summary ---
Author Organization [facility] [place], Address [address] [place] [address] Phone Care Team Providers Care Statistical Machine Servicer Name Role Phone Alva Ruiz PA-C Primary Care Provider [phone] Encounter Details Date Type Department Care Team (Late Contact Info) Description 06/05/2025 Orders Only [facility] [address] [place] [address] Daniela Ricketts [facility] Social History Tobacco Use Types Packs/Day Years [...] Visit [facility] [address] [place] [address] Carmen Oliver MD [address] [place] [address] documented as of this encounter Visit Diagnoses Not on filedocumented in this encounter Care Teams Statistical Machine Servicer Relationship Specialty Start Date End Date Alva Ruiz PA-C [address] [place] [address] PCP - General Physician Software Configuration Engineer 02/16/22 documented as of this encounter
--- OUTSIDE RECORDS SUMMARY | 2025-07-02 10:36 | XMS_ITS | Encounter Summary ---
Author Organization [facility] [place], Address [address] [place] [address] Phone Care Team Providers Care Laboratory Sample Carrier Name Role Phone Alva Ruiz PA-C Primary Care Provider [phone] Encounter Details Date Type Department Care Team (Late st Contact Info) Description 12/27/2024 Documentation Only [facility] [address] [place] [address] [place] [address] Social History Tobacco Use Types [...] Visit [facility] [address] [place] [address] Carmen Oliver MD [address] [place] [address] documented as of this encounter Visit Diagnoses Not on filedocumented in this encounter Care Teams Laboratory Sample Carrier Relationship Specialty Start Date End Date Alva Ruiz PA-C [address] [place] [address] PCP - General Physician Aeronautical Research Engineer 02/16/22 documented as of this encounter
--- OUTSIDE RECORDS SUMMARY | 2025-07-02 10:36 | XMS_ITS | Encounter Summary ---
Author Organization [facility], Address [address] [place] [address] Phone Care Team Providers Care Research Environmental Engineer Name Role Phone Alva Ruiz PA-C Primary Care Provider [phone] Encounter Details Date Type Department Care Team (Late st Contact Info) Description 08/16/2024 Documentation Only [facility] [address] [place] [address] [place] [address] Social History Tobacco Use Types [...] Visit [facility] [address] [place] [address] Carmen Oliver MD [address] [place] [address] documented as of this encounter Visit Diagnoses Not on filedocumented in this encounter Care Teams Research Environmental Engineer Relationship Specialty Start Date End Date Alva Ruiz PA-C [address] [place] [address] PCP - General Physician Compliance Director 02/16/22 documented as of this encounter
--- OUTSIDE RECORDS SUMMARY | 2025-07-02 10:36 | XMS_ITS | Clinical Summary ---
Author Organization [facility] Address [address] [facility] [address] [place] [address] Phone Care Team Providers Care E Commerce Project Manager Name Role Phone Alva Ruiz PA-C [...] topic Medical Devices Not on file Insurance [facility] DIRECT [employer] [place] [place] [address] [place] [place] [address] [employer] DIRECT Care Teams E Commerce Project Manager Relationship Specialty Start Date End Date Alva Ruiz PA-C PCP - General Physician Hole Puncher Strap 01/25/24 Additional Source Comments The information contained in this document represents components of the legal health record. It is not the complete legal health record.[facility]
--- OUTSIDE RECORDS SUMMARY | 2025-07-02 10:36 | XMS_ITS | Encounter Summary ---
Author Organization [facility] [place], Address [address] [place] [address] Phone Care Team Providers Care Field Coil Winder Name Role Phone Alva Ruiz PA-C Primary Care Provider [phone] Encounter Details Date Type Department Care Team (Late st Contact Info) Description 08/15/2023 Documentation Only [facility] [address] [place] [phone] [place] [address] Social History Tobacco Use Types [...] [facility] [address] [place] [address] Carmen Oliver MD [address] [place] [address] documented as of this encounter Visit Diagnoses Not on filedocumented in this encounter Care Teams Field Coil Winder Relationship Specialty Start Date End Date Alva Ruiz PA-C [address] [place] [address] PCP - General Physician Microsoft Exchange Administrator 02/16/22 documented as of this encounter
--- OUTSIDE RECORDS SUMMARY | 2025-07-02 10:36 | XMS_ITS | Encounter Summary ---
Author Organization [facility] [place], Address [address] [place] [address] Phone Care Team Providers Care Farm Owner Operator Name Role Phone Alva Ruiz PA-C Primary Care Provider [phone] Encounter Details Date Type Department Care Team (Late st Contact Info) Description 08/10/2023 Documentation Only [facility] [address] [place] [address] [place] [address] Social History Tobacco Use Types [...] Visit [facility] [address] [place] [phone] Carmen Oliver MD [address] [place] [address] documented as of this encounter Visit Diagnoses Not on filedocumented in this encounter Care Teams Farm Owner Operator Relationship Specialty Start Date End Date Alva Ruiz PA-C [address] [place] [address] PCP - General Physician Chief Scientific Officer 02/16/22 documented as of this encounter
--- OUTSIDE RECORDS SUMMARY | 2025-07-02 10:36 | XMS_ITS | Encounter Summary ---
Author Organization [facility] [place], Address [address] [place] [address] Phone Care Team Providers Care Cutter And Presser Name Role Phone Alva Ruiz PA-C Primary Care Provider +1 [phone] Encounter Details Date Type Department Care Team (Late st Contact Info) Description 01/30/2025 Documentation Only [facility] [address] [place] [address] [place] [address] Social History Tobacco Use Types [...] [facility] [address] [place] [address] Carmen Oliver MD [address] [place] [address] documented as of this encounter Visit Diagnoses Not on filedocumented in this encounter Care Teams Cutter And Presser Relationship Specialty Start Date End Date Alva Ruiz PA-C [address] [place] [address] PCP - General Physician Software Product Specialist 02/16/22 documented as of this encounter
--- OUTSIDE RECORDS SUMMARY | 2025-07-02 10:36 | XMS_ITS | Encounter Summary ---
Author Organization [facility] [place], Address [address] [place] [address] Phone Care Team Providers Care Forging Press Setter Up Name Role Phone Alva Ruiz PA-C Primary Care Provider +1 [phone] Encounter Details Date Type Department Care Team (Late st Contact Info) Description 08/11/2023 Documentation Only [facility] [address] [place] [address] [place] [address] Social History Tobacco Use Types [...] Visit [facility] [address] [place] [address] Carmen Oliver MD [address] [place] [address] documented as of this encounter Visit Diagnoses Not on filedocumented in this encounter Care Teams Forging Press Setter Up Relationship Specialty Start Date End Date Alva Ruiz PA-C [address] [place] [address] PCP - General Physician Care Team Assistant 02/16/22 documented as of this encounter
--- OUTSIDE RECORDS SUMMARY | 2025-07-02 10:36 | XMS_ITS | Encounter Summary ---
Author Organization [facility] [place], Address [address] [place] [address] Phone Care Team Providers Care Parachute Packer Name Role Phone Alva Ruiz PA-C Primary Care Provider [phone] [phone] Encounter Details Date Type Department Care Team (Late st Contact Info) Description 08/16/2024 Documentation Only [facility] [address] [place] [address] [place] [address] Social History Tobacco Use Types [...] Visit [facility] [address] [place] [address] Carmen Oilver MD [address] [place] [address] documented as of this encounter Visit Diagnoses Not on filedocumented in this encounter Care Teams Parachute Packer Relationship Specialty Start Date End Date Alva Ruiz PA-C [address] [place] [address] PCP - General Physician Supervisor Special Education 02/16/22 documented as of this encounter
--- OUTSIDE RECORDS SUMMARY | 2025-07-02 10:36 | XMS_ITS | Encounter Summary ---
Author Organization [facility] [place], Address [address] [place] [address] Phone Care Team Providers Care Spinner Open End Name Role Phone Alva Ruiz PA-C Primary Care Provider +1 [phone] Encounter Details Date Type Department Care Team (Late st Contact Info) Description 08/11/2023 Documentation Only [facility] [address] [place] [phone] [place] [address] Social History Tobacco Use Types [...] Visit [facility] [address] [place] [address] Carmen Oliver MD [address] [place] [address] documented as of this encounter Visit Diagnoses Not on filedocumented in this encounter Care Teams Spinner Open End Relationship Specialty Start Date End Date Alva Ruiz PA-C [address] [place] [address] PCP - General Physician Ergonomics Technician 02/16/22 documented as of this encounter
--- OUTSIDE RECORDS SUMMARY | 2025-07-02 10:36 | XMS_ITS | Encounter Summary ---
Author Organization [facility] [place], Address [address] [place] [address] Phone Care Team Providers Care Rail Car Repairman Name Role Phone Alva Ruiz PA-C Primary Care Provider [phone] [phone] Encounter Details Date Type Department Care Team (Late st Contact Info) Description 08/25/2023 Documentation Only [facility] [address] [place] [phone] [place] [address] Social History Tobacco Use Types [...] Transplant [facility] [address] [place] [address] Carmen Oliver MD [address] [place] [phone] documented as of this encounter Visit Diagnoses Not on filedocumented in this encounter Care Teams Rail Car Repairman Relationship Specialty Start Date End Date Alva Ruiz PA-C [address] [place] [address] PCP - General Physician Electrical Inspector 02/16/22 documented as of this encounter
--- OUTSIDE RECORDS SUMMARY | 2025-07-02 10:36 | XMS_ITS | Encounter Summary ---
Author Organization [facility] [place], Address [address] [place] [address] Phone Care Team Providers Care Second Grade Teacher Name Role Phone Alva Ruiz PA-C Primary Care Provider [phone] [phone] Encounter Details Date Type Department Care Team (Late st Contact Info) Description 08/10/2023 Documentation Only [facility] [address] [place] [address] [place] [address] Social History Tobacco Use Types [...] Visit [facility] [address] [place] [place] [address] Carmen Oliver MD [address] [place] [place] [address] documented as of this encounter Visit Diagnoses Not on filedocumented in this encounter Care Teams Second Grade Teacher Relationship Specialty Start Date End Date Alva Ruiz PA-C [address] [place] [address] PCP - General Physician Bell Spinner 02/16/22 documented as of this encounter
--- OUTSIDE RECORDS SUMMARY | 2025-07-02 10:36 | XMS_ITS | Encounter Summary ---
Author Organization [facility] [place], Address [address] [place] [address] Phone Care Team Providers Care Scoop Driver Name Role Phone Alva Ruiz PA-C Primary Care Provider [phone] Encounter Details Date Type Department Care Team (Late st Contact Info) Description 01/30/2025 Documentation Only [facility] [address] [place] [address] [place] [address] Social History Tobacco Use Types [...] Visit [facility] [address] [place] [address] Carmen Oliver MD [address] [place] [address] documented as of this encounter Visit Diagnoses Not on filedocumented in this encounter Care Teams Scoop Driver Relationship Specialty Start Date End Date Alva Ruiz PA-C [address] [place] [address] PCP - General Physician General Freight Agent 02/16/22 documented as of this encounter
--- OUTSIDE RECORDS SUMMARY | 2025-07-02 10:36 | XMS_ITS | Encounter Summary ---
Author Organization [facility] [place], Address [address] [place] [address] Phone Care Team Providers Care Tubular Splitting Machine Tender Name Role Phone Alva Ruiz PA-C Primary Care Provider [phone] Encounter Details Date Type Department Care Team (Late st Contact Info) Description 11/02/2024 Documentation Only [facility] [address] [place] [address] [place] [address] Social History Tobacco Use Types [...] Services Of [facility] [address] [place] [phone] Carmen Oliver MD [address] [place] [address] documented as of this encounter Visit Diagnoses Not on filedocumented in this encounter Care Teams Tubular Splitting Machine Tender Relationship Specialty Start Date End Date Alva Ruiz PA-C [address] [place] [address] PCP - General Physician Chief Bank Examiner 02/16/22 documented as of this encounter
--- OUTSIDE RECORDS SUMMARY | 2025-07-02 10:37 | XMS_ITS | Encounter Summary ---
Author Organization [facility] [place], Address [address] [place] [address] Phone Care Team Providers Care Office Chair Assembler Name Role Phone Alva Ruiz PA-C Primary Care Provider [phone] Encounter Details Date Type Department Care Team (Late st Contact Info) Description 10/24/2024 Documentation Only [facility] [address] [place] [address] [place] [address] Social History Tobacco Use Types [...] Visit [facility] [address] [place] [address] Carmen Oliver MD [address] [place] [address] documented as of this encounter Visit Diagnoses Not on filedocumented in this encounter Care Teams Office Chair Assembler Relationship Specialty Start Date End Date Alva Ruiz PA-C [address] [place] [address] PCP - General Physician Printing Table Worker 02/16/22 documented as of this encounter
--- OUTSIDE RECORDS SUMMARY | 2025-07-02 10:37 | XMS_ITS | Encounter Summary ---
Author Organization [facility] [place], Address [address] [place] [address] Phone Care Team Providers Care Director Human Services Name Role Phone Alva Ruiz PA-C Primary Care Provider [phone] Encounter Details Date Type Department Care Team (Late st Contact Info) Description 02/26/2025 Documentation Only [facility] [address] [place] [address] [place] [address] Social History Tobacco Use Types [...] Visit [facility] [address] [place] [address] Carmen Oliver MD [address] [place] [address] documented as of this encounter Visit Diagnoses Not on filedocumented in this encounter Care Teams Director Human Services Relationship Specialty Start Date End Date Alva Ruiz PA-C [address] [place] [address] PCP - General Physician Cardiac Care Nurse 02/16/22 documented as of this encounter
--- OUTSIDE RECORDS SUMMARY | 2025-07-02 10:37 | XMS_ITS | Encounter Summary ---
Author Organization [facility] [place], Address [address] [place] [address] Phone Care Team Providers Care Police Crime Scene Technician Name Role Phone Alva Ruiz PA-C Primary Care Provider [phone] Encounter Details Date Type Department Care Team (Late st Contact Info) Description 08/16/2024 Documentation Only [facility] [address] [place] [address] [place] [address] Social History Tobacco Use Types [...] Transplant Services Of [facility] [address] [place] [address] Carmen Oliver MD [address] [place] [address] documented as of this encounter Visit Diagnoses Not on filedocumented in this encounter Care Teams Police Crime Scene Technician Relationship Specialty Start Date End Date Alva Ruiz PA-C [address] [place] [address] PCP - General Physician Freight Handler 02/16/22 documented as of this encounter
--- OUTSIDE RECORDS SUMMARY | 2025-07-02 10:37 | XMS_ITS | Encounter Summary ---
Author Organization [facility] [place], Address [address] [place] [address] Phone Care Team Providers Care Brick And Block Mason Name Role Phone Alva Ruiz PA-C Primary Care Provider [phone] Encounter Details Date Type Department Care Team (Late st Contact Info) Description 10/24/2024 Documentation Only [facility] [address] [place] [address] [place] [address] Social History Tobacco Use Types [...] Visit [facility] [address] [place] [address] Carmen Oliver MD [address] [place] [address] documented as of this encounter Visit Diagnoses Not on filedocumented in this encounter Care Teams Brick And Block Mason Relationship Specialty Start Date End Date Alva Ruiz PA-C [address] [place] [address] PCP - General Physician Sorter Pricer 02/16/22 documented as of this encounter
--- OUTSIDE RECORDS SUMMARY | 2025-07-02 10:37 | XMS_ITS | Encounter Summary ---
Author Organization [facility] [place], Address [address] [place] [address] Phone Care Team Providers Care Top Polisher Name Role Phone Alva Ruiz PA-C Primary Care Provider [phone] Encounter Details Date Type Department Care Team (Late st Contact Info) Description 11/10/2023 Documentation Only [facility] [address] [place] [address] [place] [address] Social History Tobacco Use Types [...] Visit [facility] [address] [place] [place] [address] Carmen Oliver MD [address] [place] [place] [address] documented as of this encounter Visit Diagnoses Not on filedocumented in this encounter Care Teams Top Polisher Relationship Specialty Start Date End Date Alva Ruiz PA-C [address] [place] [address] PCP - General Physician Civil Draftsman 02/16/22 documented as of this encounter
--- OUTSIDE RECORDS SUMMARY | 2025-07-02 10:37 | XMS_ITS | Encounter Summary ---
Author Organization [facility] [place], Address [address] [place] [address] Phone Care Team Providers Care String Laster Name Role Phone Alva Ruiz PA-C Primary Care Provider [phone] Encounter Details Date Type Department Care Team (Late st Contact Info) Description 11/10/2023 Documentation Only [facility] [address] [place] [address] [place] [address] Social History Tobacco Use Types [...] Visit [facility] [address] [place] [address] Carmen Oliver MD [address] [place] [place] [address] documented as of this encounter Visit Diagnoses Not on filedocumented in this encounter Care Teams String Laster Relationship Specialty Start Date End Date Alva Ruiz PA-C [address] [place] [address] PCP - General Physician Fuselage Framer 02/16/22 documented as of this encounter
--- OUTSIDE RECORDS SUMMARY | 2025-07-02 10:37 | XMS_ITS | Encounter Summary ---
Author Organization [facility] [place], Address [address] [place] [address] Phone Care Team Providers Care Cell Stripper Final Name Role Phone Alva Ruiz PA-C Primary Care Provider + [phone] Encounter Details Date Type Department Care Team (Late st Contact Info) Description 06/08/2024 Documentation Only [facility] [place], [address] [place] [address] Aliza Johnson Social History Tobacco Use Types [...] Aliza Johnson - 06/08/2024 1:25 PM EST [facility] Luiz Torres is a 53-YO male here today for diabetes education/management. This is the patient???s first visit with the [facility]. TODAY: Luiz Torres [...] treatment with snacks DIET: B: eggs, toast, [place] Citizen omelet from a diner L: sometimes skips, [...] inspect his feet and to see an calibration technician yearly. --Assessment/Plan: Continue Humalog 14-16 units three [...] mg tablet at bedtime --Follow-up with clinical retail pharmacy technician in 6-7 weeks to discuss diabetes management Patient education was provided via: (X) Verbal instructions (X) Written instructions (X) Patient education handout(s) --Ozempic handout --Hypoglycemia treatment Approximate time spent with the patient: 60 minutes Aliza Johnson PharmD Candidate DANIELA JORDAN, PHARMD, BCPS, [facility] SCIENTIST [facility] Cosigned by Daniela Jordan RPh at 06/12/2024 2:14 PM EST documented in this encounter Plan of Treatment Upcoming Encounters Date Type Department Care Team (Late st Contact Info) Description 07/11/2025 4:30 PM EST Office Visit [facility] [place], [address] [place] [address] Carmen Oliver MD [address] [place] [address] documented as of this encounter Visit Diagnoses Not on filedocumented in this encounter Care Teams Cell Stripper Final Relationship Specialty Start Date End Date Alva Ruiz PA-C [address] [place] [address] PCP - General Physician Humane Agent 02/16/22 documented as of this encounter
== END 2025-07-02 08:46 ==
LOC: HO.US 08:45
PROVIDERS: PCP Physician Assistant Medical; Visit Provider Internal Medicine Nephrology
DX: E11.22 Type 2 diabetes mellitus with diabetic chronic kidney disease (principal); I12.9 Hypertensive chronic kidney disease with stage 1 through stage 4 chronic kidney disease, or unspecified chronic kidney disease; N18.4 Chronic kidney disease, stage 4 (severe)
CPT/HCPCS: 76775; 93975

== ENCOUNTER → 2025-07-02 08:50 | Outpatient (BNV) | payer MEDICAID, SELFPAY | PROVIDERS: PCP Physician Assistant Medical; Visit Provider Specialist | DX: E11.22 Type 2 diabetes mellitus with diabetic chronic kidney disease (principal); N18.9 Chronic kidney disease, unspecified | CPT/HCPCS: 93975 ==

== ENCOUNTER 2025-07-02 10:00 | Outpatient (AMB) | payer MEDICAID, SELFPAY ==
[2025-07-02 11:21] VITALS: BP 120/80; PULSE 78; O2SAT 96; BMI 31.2
--- NOTE | 2025-07-02 11:21 | HO.NEPHOV ---
Vital Signs 07/02/25 11:21 Height 5 ft 8 in Weight 205 lb BMI 31.2 BP 120/80 Blood Pressure Location Lt brachial Position Sitting Pulse 78 Pulse Source Pulse Oximeter Pulse Oximetry (%) 96 Oxygen Delivery Method Room Air Intake Visit Reasons: 2-3 weeks f/u-LVM Senior Investigator Required: No Accompanied by: Self / Same As Patient Allergies No Known Allergies Allergy (Verified 07/02/25 11:23) HPI Comments Details: I had the privilege of seeing Luiz in follow up of his CKD . He has Diabetes mellitus for over 20 years. His HbA1c has improved from 12 to 7.3(He is unsure whether its due to decline in renal function ). He never had renal biopsy.He has H/O stones( kidney and bladder). 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 He denies neuropathybut has H/O CAD, cardiomyopathy with EF 32 %. He denies CVA or PAD. He has SOBE as well as intermittent PND. He has hypertension and dyslipidemia & his BP is well controlled on medn. He has H/O sarcoidosis as well as Reiters but No H/O malignancy; H/O liver biopsy. Denied any H/O renal issues in family or prostatic issues. 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 or fluctuating manifestations Hypersomnia Carpal tunnel syndrome of right wrist Obstructive sleep apnea Katie's disease Diabetes Hyperlipidemia HTN (hypertension) Sarcoidosis Surgical History No history of previous surgery Family History Mother Diabetes mellitus Father Heart failure Social History Alcohol intake: current Alcohol intake frequency: holidays/special occasions only Patient Tobacco Use Status: Never used Tobacco Current occupational status: employed Current occupation: Dealership Review of Systems Const All systems reviewed & are unremarkable except as noted in HPI and below Physical Exam Vital Signs: Last Vital Signs Pulse 78 07/02/25 11:21 BP 120/80 07/02/25 11:21 Pulse Ox 96 07/02/25 11:21 Oxygen Delivery Method Room Air 07/02/25 11:21 BMI result Body Mass Index 31.2 Const General: comfortable and no acute distress Orientation/consciousness: patient oriented x3 HEENT Head: Yes normocephalic Mouth: Normal oral and palatal mucosa present Eyes EOM: EOMs intact bilaterally Neck Neck: Yes supple Resp Auscultation: clear to auscultation bilaterally Cardio Jugular venous distension: no JVD Rate: regular rate GI Palpation (GI): Soft to palpation Auscultation: normal bowel sounds General: Yes no CVA tenderness Back/Spine/Pelvis Back: no CVA tenderness Skin General skin exam: no rashes or lesions noted Neuro General: patient oriented x3 and moves all extremities Extrem General: Yes no pedal edema Results Reviewed Nephrology Results: Hgb, (14.0-18.0) 14.4 g/dl 06/26/25 WBC, (4.8-10.8) 7.6 X10*3/uL 06/26/25 Plt Count, (160-400) 233 X10*3/uL 25 Sodium, (135-145) 138 mmol/L 25 Potassium, (3.3-5.1) 4.3 mmol/L 25 Chloride, (96-108) 108 mmol/L 25 Carbon Dioxide, (22-29) 21 mmol/L L 25 BUN, (9-16) 35 mg/dL H 25 Creatinine, (0.5-1.4) 2.67 mg/dL H 25 Calcium, (8.4-10.2) 9.1 mg/dL 25 PTH Intact, (8.7-77.1) 198.3 pg/mL H 06/26/25 Urine Creatinine 154.87 mg/dL 25 Protein/Creatinin Ratio, (<0.2) 2.38 H 2425 Renal US Today Assessment & Plan Assessment & Plan (1) HTN (hypertension): Code(s): I10 - Essential (primary) hypertension Category: Medical Qualifiers: Hypertension type: primary hypertension Qualified Code(s): I10 - Essential (primary) hypertension (2) CKD stage 4 due to type 2 diabetes mellitus: Code(s): E11.22 - Type 2 diabetes mellitus with diabetic chronic kidney disease; N18.4 - Chronic kidney disease, stage 4 (severe) Category: Medical Plan Luiz likely has progression of his diabetic renal disease; Has H/O sarcoidosis & Reiters Unlikely to have non caseating granulomatous infiltrative disorder of kidneys( but is DDX) Amyloidosis needs to be ruled out given renal disease/cardiomyopathy On ARB/SGLT2i/ASA; No NSAID's; Good hydration; May consider renal biopsy No medication changes made today; All the above possibilites/W/U/Management strategies discussed Answered all questions & F/U given Orders: Orders Creatinine 2 Months E11.22 - Type 2 diabetes mellitus with diabetic chronic kidney disease, I10 - Essential (primary) hypertension, N18.4 - Chronic kidney disease, stage 4 (severe) Blood Urea Nitrogen 2 Months E11.22 - Type 2 diabetes mellitus with diabetic chronic kidney disease, I10 - Essential (primary) hypertension, N18.4 - Chronic kidney disease, stage 4 (severe) Electrolytes 2 Months E11.22 - Type 2 diabetes mellitus with diabetic chronic kidney disease, I10 - Essential (primary) hypertension, N18.4 - Chronic kidney disease, stage 4 (severe) Coding Level of Care Code Est Pt Level 4 (82299) Diagnoses Primary hypertension I10 Hypertension type: primary hypertension CKD stage 4 due to type 2 diabetes mellitus E11.22; N18.4
== END 2025-07-02 11:44 | disposition home or self-care (01) ==
LOC: HO.HKAS 10:00
PROVIDERS: PCP Physician Assistant Medical; Visit Provider Internal Medicine Nephrology
DX: I12.9 Hypertensive chronic kidney disease with stage 1 through stage 4 chronic kidney disease, or unspecified chronic kidney disease (principal); E11.22 Type 2 diabetes mellitus with diabetic chronic kidney disease; N18.4 Chronic kidney disease, stage 4 (severe)
CPT/HCPCS: 99214